=== PATIENT | female | born 1960 | race African-American/Black ===

== ENCOUNTER 2018-03-23 17:21 | Inpatient (IN) ==
[2018-03-23 18:05] LABS: Baso % (Auto) 0.2 % (0.0-2.0); Hematocrit 37.5 % (35.0-46.0); Hemoglobin 11.8 gm/dL (11.6-15.3); Lymph # (Auto) 1.9 th/mm3 (1.0-4.8); Lymph % (Auto) 11.6 % (9.0-44.0); Mean Corpuscular HGB Conc 31.5 % (32.0-36.0); Mean Corpuscular Hemoglobin 26.2 pg (27.0-34.0); Mean Corpuscular Volume 83.2 fL (80.0-100.0); Mean Platelet Volume 8.5 fL (7.0-11.0); Mono % (Auto) 6.3 % (0.0-8.0); Neut # (Auto) 13.1 th/mm3 (1.8-7.7); Neut % (Auto) 81.9 % (16.0-70.0); Platelet Count 590 th/mm3 (150-450); Red Cell Distribution Width 14.3 % (11.6-17.2)
[2018-03-23 18:34] LABS: Albumin 4.1 g/dL (3.4-5.0); Anion Gap 25 meq/L (5-15); Aspartate Aminotransferase 12 U/L (15-37); Blood Urea Nitrogen 32 mg/dL (7-18); Calcium 9.8 mg/dL (8.5-10.1); Carbon Dioxide 13.4 meq/L (21.0-32.0); Chloride 100 meq/L (98-107); Glomerular Filtration Rate 24 mL/min (>89); Potassium 3.3 meq/L (3.5-5.1); Sodium 138 meq/L (136-145)
[2018-03-23 18:49] LABS: Alanine Aminotransferase 16 U/L (10-53); Alkaline Phosphatase 97 U/L (45-117); Glucose,Random 535 mg/dL (74-106); Total Protein 9.1 g/dL (6.4-8.2)
--- NOTE | 2018-03-23 18:52 | ED ---
HPI General Chief Complaint: Psychiatric Symptoms Stated Complaint: psych eval/dbpd Time Seen by Provider: 03/23/18 18:30 Source: patient Mode of arrival: ambulatory Limitations: no limitations History of Present Illness HPI Narrative: 57-year-old female presents to the emergency department under Pak act. According to the Pak act report the patient was disoriented and wandering in a road with oncoming traffic. Patient says she just "went outside to get some fresh air." She denies suicidal or homicidal ideations. Denies history of suicidal attempts. Denies auditory or visual hallucinations. Denies illicit drug use, alcohol use, tobacco use. History of schizophrenia and says she has been taking her medications as prescribed. No known aggravating or relieving factors. Symptoms are moderate to severe in severity. Onset unknown. Duration unknown. Primary care provider is Dr. bnoe. No known allergies. Does not have a psychiatrist. Patient's heart rate and blood pressure is elevated. She is calm. She denies chest pain, shortness of breath, abdominal pain, nausea, vomiting, fevers, change in urine or stool. Denies history of hypertension. Has no other medical complaints. No other modifying factors or associated signs and symptoms. Related Data Home Medications Medication Instructions Recorded Confirmed clozapine [Clozaril] 200 mg PO BID 03/23/18 03/23/18 Allergies Allergy/AdvReac Type Severity Reaction Status Date / Time No Known Allergies Allergy Verified 03/23/18 17:28 Review of Systems ROS Unobtainable All other systems reviewed negative except as stated in HPI [facility] Medical History Medical History Patient denies medical problems (Acute) Surgical History Surgical History No history of previous surgery (Acute) Social History Social History Substance History: No History of Abuse Second Hand Smoke Exposure: Yes Smoking Status: Never smoker How Often Do You Have a Drink Containing Alcohol: Never Recent Travel in [place] within the Last 8 Weeks: No Recent Out of Country Travel within the Last 8 Weeks: No Immunization History Tetanus Immunization: Unable to Assess Hx Influenza Vaccine This Season: Unable to Assess Exam Narrative Exam Narrative: GENERAL: Well-nourished, well-developed black female patient, in no acute distress SKIN: Warm and dry. HEAD: Atraumatic. Normocephalic. EYES: Pupils equal and round. ENT: Mucosa pink and moist. NECK: Supple. Trachea midline. CARDIOVASCULAR: Tavhycardic rate and rhythm. No murmur appreciated. RESPIRATORY: No accessory muscle use. Clear to auscultation. Breath sounds equal bilaterally. GASTROINTESTINAL: Abdomen soft, non-tender, nondistended. Hepatic and splenic margins not palpable. Bowel sounds are active 4 quadrants. MUSCULOSKELETAL: No obvious deformities. No clubbing. No cyanosis. No edema. BACK: No CVA tenderness. NEUROLOGICAL: Awake and alert. Oriented 4. No obvious cranial nerve deficits. Motor grossly within normal limits. Normal speech. Moves all extremities. 5/5 strength to all extremities. PSYCHIATRIC: No delusional thought processes. No hallucinations. Course Consultations Consultation #1: Dr. Pearl will admit the patient to the ICU on an insulin drip. Time: 22:25 Initial Documented Vital Signs Temperature 99.4 F 03/23/18 17:28 Pulse Rate 141 H 03/23/18 17:28 Respiratory Rate 18 03/23/18 17:28 Blood Pressure 196/91 H 03/23/18 17:28 Pulse Oximetry 95 03/23/18 17:28 Last Documented Vital Signs Temperature 98.6 F 03/23/18 18:05 Pulse Rate 106 H 03/23/18 19:25 Respiratory Rate 20 03/23/18 19:25 Blood Pressure 139/62 03/23/18 19:25 Pulse Oximetry 99 03/23/18 19:25 Critical Care Time Critical Care Time: Yes Total Critical Care Time: 45 Attestation: Aggregate critical care time was minutes. Time to perform other separately billable procedures was not included in the critical care time. My time did not include minutes spent treating any other patients simultaneously or on activities that did not directly contribute to the patient's treatment. The services I provided to this patient were to treat and/or prevent clinically significant deterioration due to hyperglycemia with acidosis. I provided critical care services requiring my management, as noted below: Chart data review, documentation time, medication orders and management, vital sign assessments/reviewing monitor data, ordering and reviewing lab tests, ordering and interpreting/reviewing x-rays and diagnostic studies, care of the patient and discussion of the patient with the admitting physicians Medical Decision Making COLTON Attestation COLTON supervised visit: Yes Attestation: I, Dr. Santoro, have reviewed the advance practice practitioner's documentation and am in agreement, met with the patient face to face, made the diagnosis, and the medical decision making was done by me. *My assessment and Findings: This patient presented as a psych eval. She was found to be hyperglycemic and acidotic. IV fluids and IV insulin have been ordered. She is also receiving further laboratory workup. This patient is rapidly improving. Her bicarb is now 17.9 with an anion gap of 17. Sugar is down to 259. Her acetone was not initially done. It was done with her repeat BMP. It is 2.02. This patient is not on an insulin drip. She was given IV fluids and a single dose of IV insulin. I feel that she would be stable for treatment on the floor. I have a consult out for Dr. Pearl to discuss disposition. MDM Narrative Medical decision making narrative: Patient presents under a Pak act. Physical examination and vital signs are essentially unremarkable. Patient has no medical complaints to report. Psych screen has been ordered. If the laboratory results are unremarkable, the patient will be medically cleared for psychiatric evaluation and disposition. Differential Diagnosis Differential Diagnosis: Schizophrenia, medical clearance for psychiatric admission, depression Lab Data Lab results reviewed: Yes I reviewed the patient's lab results. Result diagrams: 03/23/18 17:30 03/23/18 21:24 Lab Results 03/23/18 03/23/18 03/23/18 Range/Units 17:30 17:30 17:30 WBC 16.0 H (4.0-11.0) th/mm3 RBC 4.50 (4.00-5.30) mil/mm3 Hgb 11.8 (11.6-15.3) gm/dL Hct 37.5 (35.0-46.0) % MCV 83.2 (80.0-100.0) fL MCH 26.2 L (27.0-34.0) pg MCHC 31.5 L (32.0-36.0) % RDW 14.3 (11.6-17.2) % Plt Count 590 H (150-450) th/mm3 MPV 8.5 (7.0-11.0) fL Neut % (Auto) 81.9 H (16.0-70.0) % Lymph % (Auto) 11.6 (9.0-44.0) % [place] % (Auto) 6.3 (0.0-8.0) % Eos % (Auto) 0.0 (0.0-4.0) % Baso % (Auto) 0.2 (0.0-2.0) % Neut # (Auto) 13.1 H (1.8-7.7) th/mm3 Lymph # (Auto) 1.9 (1.0-4.8) th/mm3 Mes[place] # (Auto) 1.0 H (0.0-0.9) th/mm3 Eos # (Auto) 0.0 (0.0-0.4) th/mm3 Baso # (Auto) 0.0 (0.0-0.2) th/mm3 WBC Differential . Differential Comment Auto diff final Puncture Site Patient Temperature O2 Saturation (90-100) % ABG pH (7.380-7.420) ABG pCO2 (38-42) mmHg ABG pO2 (61-120) mmHg ABG HCO3 (22-26) mmol/L ABG O2 Content (12.0-20.0) Vol % ABG Base Excess (-2-2) mmol/L ABG Methemoglobin (0-2) % [place] Test Hemoglobin (12.0-16.0) G/DL Carboxyhemoglobin (0-4) % O2 Delivery Device Inspired O2 % Critical Value Sodium 138 (136-145) meq/L Potassium 3.3 L (3.5-5.1) meq/L Chloride 100 (98-107) meq/L Carbon Dioxide 13.4 L (21.0-32.0) meq/L Anion Gap 25 H (5-15) meq/L BUN 32 H (7-18) mg/dL Creatinine 2.49 H (0.50-1.00) mg/dL Estimated GFR 24 L (>89) mL/min POC Glucose (68-110) mg/dl Random Glucose 535 H* (74-106) mg/dL Calcium 9.8 (8.5-10.1) mg/dL Total Bilirubin 0.5 (0.2-1.0) mg/dL AST 12 L (15-37) U/L ALT 16 (10-53) U/L Alkaline Phosphatase 97 (45-117) U/L Total Protein 9.1 H (6.4-8.2) g/dL Albumin 4.1 (3.4-5.0) g/dL Beta-Hydroxybutyric Acd (0.00-0.39) mmol/L TSH 1.830 (0.358-3.740) uIU/mL Urine Color (Yellw/Straw) Urine Clarity (Clear) Urine pH (5.0-8.5) Ur Specific [place] (1.002-1.035) Urine Protein (Neg-Trace) mg/dL Urine Glucose (UA) (Negative) mg/dL Urine Ketones (Negative) mg/dL Urine Occult Blood (Negative) Urine Nitrate (Negative) Urine Bilirubin (Negative) Urine Urobilinogen (Less than 2) mg/dL Ur Leukocyte Esterase (Negative) Urine RBC (0-3) /hpf Urine WBC (0-5) /hpf Ur Squamous Epith Cells (0-5) /hpf Urine Bacteria (None) /hpf Hyaline Casts (0-3) /lpf Urine Mucus (Occasional) /lpf Urine Yeast (None) /hpf Micro UA Comment Urine Culture Comments Salicylates 2.8 (2.8-20.0) mg/dL Urine Opiates Screen (Neg) Acetaminophen Less than 2.0 L (10.0-30.0) mcg/mL Ur Barbiturates Screen (Neg) Ur Amphetamines Screen (Neg) U Benzodiazepines Scrn (Neg) Urine Cocaine Screen (Neg) U Cannabinoids Screen (Neg) Serum Alcohol Less than 3 (0-5) mg/dL 03/23/18 03/23/18 03/23/18 Range/Units 19:30 20:12 20:29 WBC (4.0-11.0) th/mm3 RBC (4.00-5.30) mil/mm3 Hgb (11.6-15.3) gm/dL Hct (35.0-46.0) % MCV (80.0-100.0) fL MCH (27.0-34.0) pg MCHC (32.0-36.0) % RDW (11.6-17.2) % Plt Count (150-450) th/mm3 MPV (7.0-11.0) fL Neut % (Auto) (16.0-70.0) % Lymph % (Auto) (9.0-44.0) % [place] % (Auto) (0.0-8.0) % Eos % (Auto) (0.0-4.0) % Baso % (Auto) (0.0-2.0) % Neut # (Auto) (1.8-7.7) th/mm3 Lymph # (Auto) (1.0-4.8) th/mm3 [place] # (Auto) (0.0-0.9) th/mm3 Eos # (Auto) (0.0-0.4) th/mm3 Baso # (Auto) (0.0-0.2) th/mm3 WBC Differential Differential Comment Puncture Site Left radial Patient Temperature 98.6 O2 Saturation 94 (90-100) % ABG pH 7.38 (7.380-7.420) ABG pCO2 28 L (38-42) mmHg ABG pO2 85 (61-120) mmHg ABG HCO3 16 L* (22-26) mmol/L ABG O2 Content 15.6 (12.0-20.0) Vol % ABG Base Excess -7.9 L (-2-2) mmol/L ABG Methemoglobin 0.8 (0-2) % [place] Test Present Hemoglobin 11.7 L (12.0-16.0) G/DL Carboxyhemoglobin 1.1 (0-4) % O2 Delivery Device Room air Inspired O2 21 % Critical Value Yes Sodium (136-145) meq/L Potassium (3.5-5.1) meq/L Chloride (98-107) meq/L Carbon Dioxide (21.0-32.0) meq/L Anion Gap (5-15) meq/L BUN (7-18) mg/dL Creatinine (0.50-1.00) mg/dL Estimated GFR (>89) mL/min POC Glucose 434 H (68-110) mg/dl Random Glucose (74-106) mg/dL Calcium (8.5-10.1) mg/dL Total Bilirubin (0.2-1.0) mg/dL AST (15-37) U/L ALT (10-53) U/L Alkaline Phosphatase (45-117) U/L Total Protein (6.4-8.2) g/dL Albumin (3.4-5.0) g/dL Beta-Hydroxybutyric Acd (0.00-0.39) mmol/L TSH (0.358-3.740) uIU/mL Urine Color Tabitha (Yellw/Straw) Urine Clarity Turbid H (Clear) Urine pH 5.0 (5.0-8.5) Ur Specific [place] 1.024 (1.002-1.035) Urine Protein 100 H (Neg-Trace) mg/dL Urine Glucose (UA) 500 or greater (Negative) mg/dL Urine Ketones 20 (Negative) mg/dL Urine Occult Blood Small H (Negative) Urine Nitrate Negative (Negative) Urine Bilirubin Negative (Negative) Urine Urobilinogen 2.0 H (Less than 2) mg/dL Ur Leukocyte Esterase Small H (Negative) Urine RBC 31 H (0-3) /hpf Urine WBC 23 H (0-5) /hpf Ur Squamous Epith Cells 208 (0-5) /hpf Urine Bacteria Many H (None) /hpf Hyaline Casts 37 (0-3) /lpf Urine Mucus Many H (Occasional) /lpf Urine Yeast Occasional H (None) /hpf Micro UA Comment Culture indicated Urine Culture Comments Culture indicated Salicylates (2.8-20.0) mg/dL Urine Opiates Screen (Neg) Acetaminophen (10.0-30.0) mcg/mL Ur Barbiturates Screen (Neg) Ur Amphetamines Screen (Neg) U Benzodiazepines Scrn (Neg) Urine Cocaine Screen (Neg) U Cannabinoids Screen (Neg) Serum Alcohol (0-5) mg/dL 03/23/18 03/23/18 03/23/18 Range/Units 20:29 21:24 21:24 WBC (4.0-11.0) th/mm3 RBC (4.00-5.30) mil/mm3 Hgb (11.6-15.3) gm/dL Hct (35.0-46.0) % MCV (80.0-100.0) fL MCH (27.0-34.0) pg MCHC (32.0-36.0) % RDW (11.6-17.2) % Plt Count (150-450) th/mm3 MPV (7.0-11.0) fL Neut % (Auto) (16.0-70.0) % Lymph % (Auto) (9.0-44.0) % [place] % (Auto) (0.0-8.0) % Eos % (Auto) (0.0-4.0) % Baso % (Auto) (0.0-2.0) % Neut # (Auto) (1.8-7.7) th/mm3 Lymph # (Auto) (1.0-4.8) th/mm3 [place] # (Auto) (0.0-0.9) th/mm3 Eos # (Auto) (0.0-0.4) th/mm3 Baso # (Auto) (0.0-0.2) th/mm3 WBC Differential Differential Comment Puncture Site Patient Temperature O2 Saturation (90-100) % ABG pH (7.380-7.420) ABG pCO2 (38-42) mmHg ABG pO2 (61-120) mmHg ABG HCO3 (22-26) mmol/L ABG O2 Content (12.0-20.0) Vol % ABG Base Excess (-2-2) mmol/L ABG Methemoglobin (0-2) % [place] Test Hemoglobin (12.0-16.0) G/DL Carboxyhemoglobin (0-4) % O2 Delivery Device Inspired O2 % Critical Value Sodium 141 (136-145) meq/L Potassium 3.2 L (3.5-5.1) meq/L Chloride 106 (98-107) meq/L Carbon Dioxide 17.9 L (21.0-32.0) meq/L Anion Gap 17 H (5-15) meq/L BUN 29 H (7-18) mg/dL Creatinine 1.77 H (0.50-1.00) mg/dL Estimated GFR 36 L (>89) mL/min POC Glucose (68-110) mg/dl Random Glucose 259 H D (74-106) mg/dL Calcium 8.4 L D (8.5-10.1) mg/dL Total Bilirubin (0.2-1.0) mg/dL AST (15-37) U/L ALT (10-53) U/L Alkaline Phosphatase (45-117) U/L Total Protein (6.4-8.2) g/dL Albumin (3.4-5.0) g/dL Beta-Hydroxybutyric Acd 2.02 H (0.00-0.39) mmol/L TSH (0.358-3.740) uIU/mL Urine Color (Yellw/Straw) Urine Clarity (Clear) Urine pH (5.0-8.5) Ur Specific [place] (1.002-1.035) Urine Protein (Neg-Trace) mg/dL Urine Glucose (UA) (Negative) mg/dL Urine Ketones (Negative) mg/dL Urine Occult Blood (Negative) Urine Nitrate (Negative) Urine Bilirubin (Negative) Urine Urobilinogen (Less than 2) mg/dL Ur Leukocyte Esterase (Negative) Urine RBC (0-3) /hpf Urine WBC (0-5) /hpf Ur Squamous Epith Cells (0-5) /hpf Urine Bacteria (None) /hpf Hyaline Casts (0-3) /lpf Urine Mucus (Occasional) /lpf Urine Yeast (None) /hpf Micro UA Comment Urine Culture Comments Salicylates (2.8-20.0) mg/dL Urine Opiates Screen Neg (Neg) Acetaminophen (10.0-30.0) mcg/mL Ur Barbiturates Screen Neg (Neg) Ur Amphetamines Screen Neg (Neg) U Benzodiazepines Scrn Neg (Neg) Urine Cocaine Screen Neg (Neg) U Cannabinoids Screen Neg (Neg) Serum Alcohol (0-5) mg/dL 03/23/18 Range/Units 21:59 WBC (4.0-11.0) th/mm3 RBC (4.00-5.30) mil/mm3 Hgb (11.6-15.3) gm/dL Hct (35.0-46.0) % MCV (80.0-100.0) fL MCH (27.0-34.0) pg MCHC (32.0-36.0) % RDW (11.6-17.2) % Plt Count (150-450) th/mm3 MPV (7.0-11.0) fL Neut % (Auto) (16.0-70.0) % Lymph % (Auto) (9.0-44.0) % [place] % (Auto) (0.0-8.0) % Eos % (Auto) (0.0-4.0) % Baso % (Auto) (0.0-2.0) % Neut # (Auto) (1.8-7.7) th/mm3 Lymph # (Auto) (1.0-4.8) th/mm3 [place] # (Auto) (0.0-0.9) th/mm3 Eos # (Auto) (0.0-0.4) th/mm3 Baso # (Auto) (0.0-0.2) th/mm3 WBC Differential Differential Comment Puncture Site Patient Temperature O2 Saturation (90-100) % ABG pH (7.380-7.420) ABG pCO2 (38-42) mmHg ABG pO2 (61-120) mmHg ABG HCO3 (22-26) mmol/L ABG O2 Content (12.0-20.0) Vol % ABG Base Excess (-2-2) mmol/L ABG Methemoglobin (0-2) % [place] Test Hemoglobin (12.0-16.0) G/DL Carboxyhemoglobin (0-4) % O2 Delivery Device Inspired O2 % Critical Value Sodium (136-145) meq/L Potassium (3.5-5.1) meq/L Chloride (98-107) meq/L Carbon Dioxide (21.0-32.0) meq/L Anion Gap (5-15) meq/L BUN (7-18) mg/dL Creatinine (0.50-1.00) mg/dL Estimated GFR (>89) mL/min POC Glucose 248 H (68-110) mg/dl Random Glucose (74-106) mg/dL Calcium (8.5-10.1) mg/dL Total Bilirubin (0.2-1.0) mg/dL AST (15-37) U/L ALT (10-53) U/L Alkaline Phosphatase (45-117) U/L Total Protein (6.4-8.2) g/dL Albumin (3.4-5.0) g/dL Beta-Hydroxybutyric Acd (0.00-0.39) mmol/L TSH (0.358-3.740) uIU/mL Urine Color (Yellw/Straw) Urine Clarity (Clear) Urine pH (5.0-8.5) Ur Specific [place] (1.002-1.035) Urine Protein (Neg-Trace) mg/dL Urine Glucose (UA) (Negative) mg/dL Urine Ketones (Negative) mg/dL Urine Occult Blood (Negative) Urine Nitrate (Negative) Urine Bilirubin (Negative) Urine Urobilinogen (Less than 2) mg/dL Ur Leukocyte Esterase (Negative) Urine RBC (0-3) /hpf Urine WBC (0-5) /hpf Ur Squamous Epith Cells (0-5) /hpf Urine Bacteria (None) /hpf Hyaline Casts (0-3) /lpf Urine Mucus (Occasional) /lpf Urine Yeast (None) /hpf Micro UA Comment Urine Culture Comments Salicylates (2.8-20.0) mg/dL Urine Opiates Screen (Neg) Acetaminophen (10.0-30.0) mcg/mL Ur Barbiturates Screen (Neg) Ur Amphetamines Screen (Neg) U Benzodiazepines Scrn (Neg) Urine Cocaine Screen (Neg) U Cannabinoids Screen (Neg) Serum Alcohol (0-5) mg/dL ECG Data EKG Prior to Arrival: No Attestation: I personally reviewed and interpreted this ECG as follows: Discharge Plan Discharge Disposition Patient Disposition: 30 Still Patient Discharge Details Diagnosis: DKA (diabetic ketoacidoses) Physicians Team ED Provider: Nataliia Santoro ED Midlevel Provider: Sinai Botello Primary Care Provider: Ran Eddy Attending Provider: Farrah Pearl Discharge Interventions Interventions: Vital Signs Last Done: 03/23/18 19:25 Status ED Status: Admitted Patient
[2018-03-23] MEDS ORDERED: Sod Chloride 0.9% Inj 1,000 ML IV.SIG ONE ×2 (19:23→19:24)
[2018-03-23] MEDS ORDERED: Insulin Regular (For Infusion) 100 UNIT in Sodium Chlor 0.9% Inj 99 ML IV.CONT PRN (19:26)
[2018-03-23 19:41] LABS: ABG Base Excess -7.9 mmol/L (-2-2); ABG PCO2 28 mmHg (38-42); ABG PO2 85 mmHg (61-120)
[2018-03-23 21:03] LABS: Amphetamine Screen,Urine Neg (Neg); Barbiturate Screen,Urine Neg (Neg); Cannabinoid Screen,Urine Neg (Neg); Cocaine Screen,Urine Neg (Neg)
[2018-03-23 21:14] LABS: Bacteria,Urine Many /hpf; Bilirubin,Urine Negative (Negative); Clarity,Urine Turbid (Clear); Color,Urine Amber (Yellw/Straw); Glucose,Urine (UA) 500 or Greater mg/dL (Negative); Hyaline Casts,Urine 37 /lpf (0-3); Leukocyte Esterase,Urine Small (Negative); Mucus,Urine Many /lpf (Occasional); Nitrite,Urine Negative (Negative); Specific Gravity,Urine 1.024 (1.002-1.035); Squamous Epithelial Cell,Urine 208 /hpf (0-5)
[2018-03-23 21:18] LABS: Opiate Screen,Urine Neg (Neg)
[2018-03-23 21:57] LABS: Calcium 8.4 mg/dL (8.5-10.1); Carbon Dioxide 17.9 meq/L (21.0-32.0); Potassium 3.2 meq/L (3.5-5.1)
[2018-03-23] MEDS ORDERED: Sodium Chlor 0.9% Inj 500 ML IV.SIG ONE (22:04)
[2018-03-23] MEDS ORDERED: Dextrose 50% in Water 50 ML Vial IV.PUSH PRN (22:43)
[2018-03-23] MEDS ORDERED: Temazepam 15 MG Capsule PO PRN (22:45)
[2018-03-23] MEDS ORDERED: Bisacodyl 10 MG Supp RECTAL PRN (22:45)
--- NOTE | 2018-03-23 22:51 | P.HPIM ---
History of Present Illness Primary Care Physician: Ran Eddy MD, R2 History of Present Illness: This is a 57-year-old female with a PMH of DM who is brought to the ER by Police under Pak Act after being found wandering in the street w/ oncoming traffic. Pt noted to be confused/disoriented, very poor historian. Denies any complaints at this time. On arrival, BP 196/91, HR 141, O2 sat 95% on RA, Temp 99.4. S/p IVF in ER w/ repeat BP 160/72, HR 86. WBC 16. Creatinine 2.49, previously 0.85 on 07/18/06. K+ 3.3. CO2 13.4. AG 25. BS 535. S/p 40mEqu K + x4 w/ repeat K+ 3.2. Creatinine 1.77. BS 233. ABG w/ pH 7.38. U/a positive for UTI. UDS negative, Alcohol negative. S/p Insulin 11u in ER and IVF. - Diagnosis (1) DM (diabetes mellitus) (2) Suicidal ideation (3) UTI (urinary tract infection) (4) Hypokalemia (5) MAHOGANY (acute kidney injury) Inpatient Certification: I certify that the inpatient services were ordered in accordance with Medicare regulations governing the order. This includes certification that hospital inpatient services are reasonable and necessary and in the case of services not specified as inpatient-only under 42 CFR 419.22(n), that they are appropriately provided as inpatient services in accordance to with the 2-midnight benchmark under 43 CFR 412.3(e) Estimated Total Length of Stay (Days): 2 Plans for Post Hospital Care: Not yet determined Review of Systems All other systems reviewed negative except as stated in HPI [facility] - History History Provided By: Patient - Medical History Medical History: Medical History (Last Reviewed 03/23/18 @ 18:51 by MARTIN Ortega) Patient denies medical problems - Surgical History Surgical History: Surgical History (Last Updated 03/23/18 @ 17:30 by Maddy Cantu) No history of previous surgery - Tobacco History Second Hand Smoke Exposure: Yes Tobacco Use In Past 30 Days: No Smoking Status: Never smoker - Alcohol History How Often Do You Have a Drink Containing Alcohol: Never - Substance Use History Substance History: No History of Abuse - Travel History Recent Travel in the [place] Within the Last 8 Weeks: No Recent Travel Out of the Country Within the Last 8 Weeks: No - Immunization History Tetanus Immunization: Unable to Assess Hx Influenza Vaccine This Season: Unable to Assess Medications and Allergies Active Medications: Active Medications Al Hydroxide/Mg Hydroxide (Milk Of Magnesia Liq) 30 ml PO Q12H PRN PRN Reason: Mild Constipation Bisacodyl (Dulcolax Supp) 10 mg RECTAL DAILY PRN PRN Reason: SEVERE CONSITIPATION Dextrose (D50w Vial) 50 ml IV.PUSH UNSCH PRN PRN Reason: PER HYPOGLYCEMIA PROTOCOL Glucagon (Glucagon Inj) 1 mg OTHER PRN PRN PRN Reason: for Hypoglycemia Protocol Sodium Chloride (Ns Inj) 1,000 mls @ 150 mls/hr IV.CONT .Q6H40M MARIA L Insulin Aspart (Novolog Insulin Correctional Sugar Inj) 0 unit SQ ACHS MARIA L; Protocol Insulin Detemir (Levemir Inj) 10 unit SQ HS MARIA L Lactulose (Lactulose Liq) 30 ml PO DAILY PRN PRN Reason: SEVERE CONSITIPATION Ondansetron HCl (Zofran Inj) 4 mg IV.PUSH Q6H PRN PRN Reason: NAUSEA OR VOMITING Senna/Docusate Sodium (Yael-Colace) 1 tab PO BID MARIA L Sennosides (Senokot) 17.2 mg PO Q12H PRN PRN Reason: Moderate Constipation Temazepam (Restoril) 15 mg PO HS PRN PRN Reason: INSOMNIA Allergies Allergy/AdvReac Type Severity Reaction Status Date / Time No Known Allergies Allergy Verified 03/23/18 17:28 Home Medications Medication Instructions Recorded Confirmed Type clozapine [Clozaril] 200 mg PO BID 03/23/18 03/23/18 History Exam Vital signs: Vital Signs 03/23/18 17:28 03/23/18 18:05 03/23/18 19:25 Temperature 99.4 F 98.6 F Pulse Rate 141 H 122 H 106 H Respiratory Rate 18 18 20 Blood Pressure 196/91 H 183/87 H 139/62 Pulse Oximetry 95 98 99 Intake & Output 03/23/18 03/23/18 03/24/18 06:59 18:59 06:59 Intake Total 2099 Balance 2099 Weight 113.398 kg Intake: IV 2099 NS Inj 1,000 ML @ Wide Open IV. 1999 SIG BOLUS ONE Rx#:[id number] Rocephin Inj 1,000 MG In NS Inj 100 / 100 100 ML @ 200 mls/hr IV.SIG ONCE ONE Rx#:[id number] Narrative: PE: GENERAL: Middle-aged black female in no acute distress. Calm HEENT: PERRLA, EOMI. No scleral icterus or conjunctival pallor. No lid lag or facial droop. CARDIOVASCULAR: Regular rate and rhythm. No obvious murmurs to auscultation. No chest tenderness to palpation. RESPIRATORY: No obvious rhonchi or wheezing. Clear to auscultation. Breath sounds equal bilaterally. GASTROINTESTINAL: Abdomen soft, non-tender, nondistended. BS normal. MUSCULOSKELETAL: Extremities without clubbing, cyanosis, or edema. No obvious deformities. NEUROLOGICAL: Awake, alert. Flat affect. No focal neurologic deficits. Moving both upper and lower extremities spontaneously. Results - Labs CBC & Chem 7: 03/23/18 17:30 03/23/18 21:24 Labs: Short CBC 03/23/18 Range/Units 17:30 WBC 16.0 H (4.0-11.0) th/mm3 Hgb 11.8 (11.6-15.3) gm/dL Hct 37.5 (35.0-46.0) % Plt Count 590 H (150-450) th/mm3 BMP 03/23/18 03/23/18 17:30 21:24 Sodium 138 141 Potassium 3.3 L 3.2 L Chloride 100 106 Carbon Dioxide 13.4 L 17.9 L BUN 32 H 29 H Creatinine 2.49 H 1.77 H Calcium 9.8 8.4 L D Liver Function 03/23/18 Range/Units 17:30 Total Bilirubin 0.5 (0.2-1.0) mg/dL AST 12 L (15-37) U/L ALT 16 (10-53) U/L Alkaline Phosphatase 97 (45-117) U/L Albumin 4.1 (3.4-5.0) g/dL Urine 03/23/18 Range/Units 20:29 Urine Color Tabitha (Yellw/Straw) Urine Clarity Turbid H (Clear) Urine pH 5.0 (5.0-8.5) Ur Specific [place] 1.024 (1.002-1.035) Urine Protein 100 H (Neg-Trace) mg/dL Urine Glucose (UA) 500 or greater (Negative) mg/dL Caprini VTE Risk Assessment Caprini VTE Risk Assessment: No/Low Risk (score <= 1) Caprini Risk Assessment Model: Point Value = 1 Point Value = 2 Point Value = 3 Point Value = 5 Age 41-60 Minor surgery BMI > 25 kg/m2 Swollen legs Varicose veins or History of unexplained or recurrent spontaneous Oral contraceptives or hormone replacement Sepsis (< 1 month) Serious lung disease, including pneumonia (< 1 month) Abnormal pulmonary function Acute myocardial infarction Congestive heart failure (< 1 month) History of inflammatory bowel disease Medical patient at bed rest Age 61-74 Arthroscopic surgery Major open surgery (> 45 min) Laparoscopic surgery (> 45 min) Malignancy Confined to bed (> 72 hours) Immobilizing plaster cast Central venous access Age >= 75 History of VTE Family history of VTE Factor V Leiden Prothrombin [id number] Lupus anticoagulant Anticardiolipin antibodies Elevated serum homocysteine Heparin-induced thrombocytopenia Other congenital or acquired thrombophilia Stroke (< 1 month) Elective arthroplasty Hip, pelvis, or leg fracture Acute spinal cord injury (< 1 month) Prophylaxis Regimen: Total Risk Factor Score Risk Level Prophylaxis Regimen 0-1 Low Early ambulation 2 Moderate Order ONE of the following: *Sequential Compression Device (SCD) *Heparin 5000 units SQ BID 3-4 Higher Order ONE of the following medications: *Heparin 5000 units SQ TID *Enoxaparin/Lovenox 40 mg SQ daily (WT < 150 kg, CrCl > 30 mL/min) *Enoxaparin/Lovenox 30 mg SQ daily (WT < 150 kg, CrCl > 10-29 mL/min) *Enoxaparin/Lovenox 30 mg SQ BID (WT < 150 kg, CrCl > 30 mL/min) AND/OR *Sequential Compression Device (SCD) 5 or more Highest Order ONE of the following medications: *Heparin 5000 units SQ TID (Preferred with Epidurals) *Enoxaparin/Lovenox 40 mg SQ daily (WT < 150 kg, CrCl > 30 mL/min) *Enoxaparin/Lovenox 30 mg SQ daily (WT < 150 kg, CrCl > 10-29 mL/min) *Enoxaparin/Lovenox 30 mg SQ BID (WT < 150 kg, CrCl > 30 mL/min) AND *Sequential Compression Device (SCD) Assessment and Plan - Assessment (1) DM (diabetes mellitus) Code(s): E11.9 - Type 2 diabetes mellitus without complications Status: Acute (2) Suicidal ideation Code(s): R45.851 - Suicidal ideations Status: Acute (3) UTI (urinary tract infection) Code(s): N39.0 - Urinary tract infection, site not specified Status: Acute (4) Hypokalemia Code(s): E87.6 - Hypokalemia Status: Acute (5) MAHOGANY (acute kidney injury) Code(s): N17.9 - Acute kidney failure, unspecified Status: Acute - Plan A/P: 1. DM: Uncontrolled. CO2 13, BS 535, however pH normal, s/p IVF w/ improvement, hold off on Insulin gtt for now as CO2 improving and pH normal, will recheck repeat BMP for need to initiate Insulin gtt, for now will continue w/ aggressive IVF and start sliding scale/Accu-Cheks, Levemir 10u hs. 2. Hypokalemia: K+ 3.3, s/p 40mEqu x4 doses replacement in ER w/ repeat K+ 3.2 , will recheck labs again for need to give additional replacement. Telemetry. 3. MAHOGANY: Creatinine 2.49, previously 0.85 on 07/18/06, IVF for hydration, repeat labs in am, monitor I/O. 4. UTI: U/a w/ UTI, s/p Rocephin IV in ER, will continue w/ IV Abx, follow up cultures, monitor I/O. 5. Suicidal Ideation: currently under Pak Act after found wandering the street in oncoming traffic, Consult Psych, Sitter. 6. DVT Prophylaxis: SCD/Teds 7. Case discussed w/ ER physician at length, labs/records/imaging reviewed by me.
[2018-03-23] MEDS: Insulin Detemir Inj 1,000 UNIT/10 ML Vial SQ SCH (23:56)
[2018-03-23] MEDS: Sod Chloride 0.9% Inj 1,000 ML IV.CONT SCH (23:56)
[2018-03-24 01:23] LABS: Carbon Dioxide 21.1 meq/L (21.0-32.0); Magnesium 2.1 mg/dL (1.5-2.5); Potassium 3.9 meq/L (3.5-5.1)
[2018-03-24] MEDS: Sod Chloride 0.9% Inj 1,000 ML IV.CONT SCH ×3 (05:15→20:21)
[2018-03-24] MEDS: Insulin NovoLOG Aspart Correctional Sugar Inj SQ SCH ×4 (09:33→20:20)
--- NOTE | 2018-03-24 10:35 | ECG ---
Date Performed: 03/23/2018 Time Performed: 19:19:22 PTAGE: 57 years EKG: SINUS TACHYCARDIA ABNORMAL RHYTHM ECG PREVIOUS TRACING : 02/25/2000 23.41 Since the previous tracing, no significant change noted DOCTOR: Dolores Murrieta Interpretating Date/Time 03/24/2018 10:34:44
--- NOTE | 2018-03-24 12:21 | P.PNIM ---
Subjective Interval history: Patient is very guarded and refused to talk. BJ RN. She selectively talk with them. Physical Exam Vital signs: Vital Signs 03/23/18 17:28 03/23/18 18:05 03/23/18 19:25 Temperature 99.4 F 98.6 F Pulse Rate 141 H 122 H 106 H Respiratory Rate 18 18 20 Blood Pressure 196/91 H 183/87 H 139/62 Pulse Oximetry 95 98 99 03/23/18 23:55 03/24/18 00:47 03/24/18 05:13 Temperature Pulse Rate 87 86 83 Respiratory Rate 18 18 18 Blood Pressure 191/81 H 160/72 H 161/80 H Pulse Oximetry 99 98 98 03/24/18 07:46 03/24/18 11:14 Temperature 97.8 F Pulse Rate 94 H 80 Respiratory Rate 16 16 Blood Pressure 169/87 H 188/78 H Pulse Oximetry 99 97 Intake & Output 03/23/18 03/24/18 03/24/18 18:59 06:59 18:59 Intake Total 2835 / 2835 Balance 2835 / 2835 Weight 113.398 kg Intake: IV 2835 / 2835 NS Inj 1,000 ML @ 150 mls/hr IV 735 / 735 .CONT .Q6H40M MARIA L Rx#:[id number] NS Inj 1,000 ML @ Wide Open IV. 1999 SIG BOLUS ONE Rx#:[id number] Rocephin Inj 1,000 MG In NS Inj 100 / 100 100 ML @ 200 mls/hr IV.SIG ONCE ONE Rx#:[id number] Narrative: GENERAL: Patient is guarded. Refused to participate. CARDIOVASCULAR: Regular rate and rhythm without murmurs, gallops, or rubs. RESPIRATORY: Breath sounds equal bilaterally. No accessory muscle use. GASTROINTESTINAL: Abdomen soft, non-tender, nondistended. MUSCULOSKELETAL: No cyanosis, or edema. Psych: Withdrawn. Guarded Results - Labs CBC & Chem 7: 03/24/18 13:44 03/24/18 13:44 Laboratory Results - last 24 hr 03/23/18 03/23/18 03/23/18 17:30 17:30 17:30 WBC 16.0 H RBC 4.50 Hgb 11.8 Hct 37.5 MCV 83.2 MCH 26.2 L MCHC 31.5 L RDW 14.3 Plt Count 590 H MPV 8.5 Neut % (Auto) 81.9 H Lymph % (Auto) 11.6 [place] % (Auto) 6.3 Eos % (Auto) 0.0 Baso % (Auto) 0.2 Neut # (Auto) 13.1 H Lymph # (Auto) 1.9 [place] # (Auto) 1.0 H Eos # (Auto) 0.0 Baso # (Auto) 0.0 WBC Differential . Differential Comment Auto diff final Puncture Site Patient Temperature O2 Saturation ABG pH ABG pCO2 ABG pO2 ABG HCO3 ABG O2 Content ABG Base Excess ABG Methemoglobin Italo Test Hemoglobin Carboxyhemoglobin O2 Delivery Device Inspired O2 Critical Value Sodium 138 Potassium 3.3 L Chloride 100 Carbon Dioxide 13.4 L Anion Gap 25 H BUN 32 H Creatinine 2.49 H Estimated GFR 24 L POC Glucose Random Glucose 535 H* Calcium 9.8 Magnesium Total Bilirubin 0.5 AST 12 L ALT 16 Alkaline Phosphatase 97 Total Protein 9.1 H Albumin 4.1 Beta-Hydroxybutyric Acd TSH 1.830 Urine Color Urine Clarity Urine pH Ur Specific [place] Urine Protein Urine Glucose (UA) Urine Ketones Urine Occult Blood Urine Nitrate Urine Bilirubin Urine Urobilinogen Ur Leukocyte Esterase Urine RBC Urine WBC Ur Squamous Epith Cells Urine Bacteria Hyaline Casts Urine Mucus Urine Yeast Micro UA Comment Urine Culture Comments Salicylates 2.8 Urine Opiates Screen Acetaminophen Less than 2.0 L Ur Barbiturates Screen Ur Amphetamines Screen U Benzodiazepines Scrn Urine Cocaine Screen U Cannabinoids Screen Serum Alcohol Less than 3 03/23/18 03/23/18 03/23/18 19:30 20:12 20:29 WBC RBC Hgb Hct MCV MCH MCHC RDW Plt Count MPV Neut % (Auto) Lymph % (Auto) [place] % (Auto) Eos % (Auto) Baso % (Auto) Neut # (Auto) Lymph # (Auto) [place] # (Auto) Eos # (Auto) Baso # (Auto) WBC Differential Differential Comment Puncture Site Left radial Patient Temperature 98.6 O2 Saturation 94 ABG pH 7.38 ABG pCO2 28 L ABG pO2 85 ABG HCO3 16 L* ABG O2 Content 15.6 ABG Base Excess -7.9 L ABG Methemoglobin 0.8 [place]alo Test Present Hemoglobin 11.7 L Carboxyhemoglobin 1.1 O2 Delivery Device Room air Inspired O2 21 Critical Value Yes Sodium Potassium Chloride Carbon Dioxide Anion Gap BUN Creatinine Estimated GFR POC Glucose 434 H Random Glucose Calcium Magnesium Total Bilirubin AST ALT Alkaline Phosphatase Total Protein Albumin Beta-Hydroxybutyric Acd TSH Urine Color Tabitha Urine Clarity Turbid H Urine pH 5.0 Ur Specific [place] 1.024 Urine Protein 100 H Urine Glucose (UA) 500 or greater Urine Ketones 20 Urine Occult Blood Small H Urine Nitrate Negative Urine Bilirubin Negative Urine Urobilinogen 2.0 H Ur Leukocyte Esterase Small H Urine RBC 31 H Urine WBC 23 H Ur Squamous Epith Cells 208 Urine Bacteria Many H Hyaline Casts 37 Urine Mucus Many H Urine Yeast Occasional H Micro UA Comment Culture indicated Urine Culture Comments Culture indicated Salicylates Urine Opiates Screen Acetaminophen Ur Barbiturates Screen Ur Amphetamines Screen U Benzodiazepines Scrn Urine Cocaine Screen U Cannabinoids Screen Serum Alcohol 03/23/18 03/23/18 03/23/18 20:29 21:24 21:24 WBC RBC Hgb Hct MCV MCH MCHC RDW Plt Count MPV Neut % (Auto) Lymph % (Auto) [place] % (Auto) Eos % (Auto) Baso % (Auto) Neut # (Auto) Lymph # (Auto) [place] # (Auto) Eos # (Auto) Baso # (Auto) WBC Differential Differential Comment Puncture Site Patient Temperature O2 Saturation ABG pH ABG pCO2 ABG pO2 ABG HCO3 ABG O2 Content ABG Base Excess ABG Methemoglobin Italo Test Hemoglobin Carboxyhemoglobin O2 Delivery Device Inspired O2 Critical Value Sodium 141 Potassium 3.2 L Chloride 106 Carbon Dioxide 17.9 L Anion Gap 17 H BUN 29 H Creatinine 1.77 H Estimated GFR 36 L POC Glucose Random Glucose 259 H D Calcium 8.4 L D Magnesium Total Bilirubin AST ALT Alkaline Phosphatase Total Protein Albumin Beta-Hydroxybutyric Acd 2.02 H TSH Urine Color Urine Clarity Urine pH Ur Specific [place] Urine Protein Urine Glucose (UA) Urine Ketones Urine Occult Blood Urine Nitrate Urine Bilirubin Urine Urobilinogen Ur Leukocyte Esterase Urine RBC Urine WBC Ur Squamous Epith Cells Urine Bacteria Hyaline Casts Urine Mucus Urine Yeast Micro UA Comment Urine Culture Comments Salicylates Urine Opiates Screen Neg Acetaminophen Ur Barbiturates Screen Neg Ur Amphetamines Screen Neg U Benzodiazepines Scrn Neg Urine Cocaine Screen Neg U Cannabinoids Screen Neg Serum Alcohol 03/23/18 03/23/18 03/24/18 21:59 23:46 00:42 WBC RBC Hgb Hct MCV MCH MCHC RDW Plt Count MPV Neut % (Auto) Lymph % (Auto) [place] % (Auto) Eos % (Auto) Baso % (Auto) Neut # (Auto) Lymph # (Auto) [place] # (Auto) Eos # (Auto) Baso # (Auto) WBC Differential Differential Comment Puncture Site Patient Temperature O2 Saturation ABG pH ABG pCO2 ABG pO2 ABG HCO3 ABG O2 Content ABG Base Excess ABG Methemoglobin Italo Test Hemoglobin Carboxyhemoglobin O2 Delivery Device Inspired O2 Critical Value Sodium 141 Potassium 3.9 Chloride 108 H Carbon Dioxide 21.1 Anion Gap 12 BUN 27 H Creatinine 1.61 H Estimated GFR 40 L POC Glucose 248 H 233 H Random Glucose 241 H Calcium 8.0 L Magnesium 2.1 Total Bilirubin AST ALT Alkaline Phosphatase Total Protein Albumin Beta-Hydroxybutyric Acd TSH Urine Color Urine Clarity Urine pH Ur Specific [place] Urine Protein Urine Glucose (UA) Urine Ketones Urine Occult Blood Urine Nitrate Urine Bilirubin Urine Urobilinogen Ur Leukocyte Esterase Urine RBC Urine WBC Ur Squamous Epith Cells Urine Bacteria Hyaline Casts Urine Mucus Urine Yeast Micro UA Comment Urine Culture Comments Salicylates Urine Opiates Screen Acetaminophen Ur Barbiturates Screen Ur Amphetamines Screen U Benzodiazepines Scrn Urine Cocaine Screen U Cannabinoids Screen Serum Alcohol 03/24/18 03/24/18 03/24/18 05:02 08:34 11:53 WBC RBC Hgb Hct MCV MCH MCHC RDW Plt Count MPV Neut % (Auto) Lymph % (Auto) [place] % (Auto) Eos % (Auto) Baso % (Auto) Neut # (Auto) Lymph # (Auto) [place] # (Auto) Eos # (Auto) Baso # (Auto) WBC Differential Differential Comment Puncture Site Patient Temperature O2 Saturation ABG pH ABG pCO2 ABG pO2 ABG HCO3 ABG O2 Content ABG Base Excess ABG Methemoglobin [place] Test Hemoglobin Carboxyhemoglobin O2 Delivery Device Inspired O2 Critical Value Sodium Potassium Chloride Carbon Dioxide Anion Gap BUN Creatinine Estimated GFR POC Glucose 256 H 267 H 219 H Random Glucose Calcium Magnesium Total Bilirubin AST ALT Alkaline Phosphatase Total Protein Albumin Beta-Hydroxybutyric Acd TSH Urine Color Urine Clarity Urine pH Ur Specific [place] Urine Protein Urine Glucose (UA) Urine Ketones Urine Occult Blood Urine Nitrate Urine Bilirubin Urine Urobilinogen Ur Leukocyte Esterase Urine RBC Urine WBC Ur Squamous Epith Cells Urine Bacteria Hyaline Casts Urine Mucus Urine Yeast Micro UA Comment Urine Culture Comments Salicylates Urine Opiates Screen Acetaminophen Ur Barbiturates Screen Ur Amphetamines Screen U Benzodiazepines Scrn Urine Cocaine Screen U Cannabinoids Screen Serum Alcohol Assessment and Plan - Assessment (1) DM (diabetes mellitus) Code(s): E11.9 - Type 2 diabetes mellitus without complications Status: Acute (2) Suicidal ideation Code(s): R45.851 - Suicidal ideations Status: Acute (3) UTI (urinary tract infection) Code(s): N39.0 - Urinary tract infection, site not specified Status: Acute (4) Hypokalemia Code(s): E87.6 - Hypokalemia Status: Acute (5) MAHOGANY (acute kidney injury) Code(s): N17.9 - Acute kidney failure, unspecified Status: Acute (6) Hypertension Code(s): I10 - Essential (primary) hypertension Status: Acute - Plan DM: Uncontrolled. Suspect noncompliance Hemoglobin A1C is 14. - Levemir 10 unit HS. SSI with accucheck MAHOGANY: - Improving. Continue IV hydration. Monitor I/O. UTI: U/a w/ UTI, s/p Rocephin IV in ER, will continue w/ IV Abx, follow up cultures, monitor I/O. Suicidal Ideation: currently under [place] Act after found wandering the street in oncoming traffic, psych consulted. DW Dr. Arreaga. Need better cooperation for proper assessment. HTN: uncontrolled. - Start Lisinopril DVT Prophylaxis: SCD/Teds
[2018-03-24 14:24] LABS: Baso % (Auto) 0.3 % (0.0-2.0); Eos % (Auto) 0.2 % (0.0-4.0); Hematocrit 31.7 % (35.0-46.0); Hemoglobin 10.1 gm/dL (11.6-15.3); Lymph # (Auto) 2.9 th/mm3 (1.0-4.8); Lymph % (Auto) 23.7 % (9.0-44.0); Mean Corpuscular Hemoglobin 26.6 pg (27.0-34.0); Mean Platelet Volume 7.8 fL (7.0-11.0); Mono # (Auto) 0.8 th/mm3 (0.0-0.9); Mono % (Auto) 6.8 % (0.0-8.0); Neut # (Auto) 8.4 th/mm3 (1.8-7.7); Platelet Count 450 th/mm3 (150-450); Red Blood Count 3.81 mil/mm3 (4.00-5.30); Red Cell Distribution Width 14.3 % (11.6-17.2); White Blood Count 12.2 th/mm3 (4.0-11.0)
[2018-03-24 14:43] LABS: Alanine Aminotransferase 15 U/L (10-53); Albumin 3.1 g/dL (3.4-5.0); Alkaline Phosphatase 76 U/L (45-117); Anion Gap 8 meq/L (5-15); Aspartate Aminotransferase 13 U/L (15-37); Blood Urea Nitrogen 24 mg/dL (7-18); Calcium 8.2 mg/dL (8.5-10.1); Carbon Dioxide 23.1 meq/L (21.0-32.0); Chloride 114 meq/L (98-107); Glomerular Filtration Rate 66 mL/min (>89); Glucose,Random 128 mg/dL (74-106); Potassium 3.5 meq/L (3.5-5.1); Sodium 145 meq/L (136-145); Total Protein 7.1 g/dL (6.4-8.2)
--- NOTE | 2018-03-24 15:13 | P.CONPSY ---
Provisional Diagnosis Admission Date: March 23, 2018 22:24 Mode I.: Delirium, DKA, history of schizophrenia History of Present Illness Service: Psychiatry Consult date: 03/24/18 Requesting Physician: Gale Romo Reason for Consult: Pak act Primary Care Provider: Ran Eddy MD, R2 History of Present Illness: Patient is a 57-year-old -[place] woman, unknown if domiciled, with a past psychiatric history of schizophrenia as per chart, unknown if previous psychiatric admissions, suicide attempt or self interest behavior, with a past medical history significant for diabetes, who was presented to the ED under Pak act that the patient was found disoriented and wandering in the room with on coming traffic and was admitted to the medical service for DKA, HPI and UTI which psychiatry was consulted due to Pak act. As per chart patient had denied any suicidal homicidal ideations, denies any perceptional disturbances, substance use, but was noted to have confusion disorientation. Patient was found lying hospital bed with sitter at bedside, initially responded to basic questions but then refused to continue interview stimulating as if she was asleep, selectively mute with senior technical writer. Despite multiple attempts to have patient engage in interview patient refused to cooperate. Medical team was updated with recent evaluation and will continue recommendations as per prior medical team which patient will be reevaluated upon more medical stabilization and may be more able to participate in evaluation. Attempts to reach collateral information were unsuccessful, as per EMR, patient' s contact: Uncle (Romeo Stack - [phone]), due to limited evaluation as stated above and concern of patient's safety due to Pak act description. PMFSH - History History Provided By: Patient - Medical History Medical History: Medical History (Last Reviewed 03/23/18 @ 18:51 by MARTIN Ortega) Patient denies medical problems - Surgical History Surgical History: Surgical History (Last Updated 03/23/18 @ 17:30 by Maddy Cantu) No history of previous surgery - Tobacco History Second Hand Smoke Exposure: Yes Tobacco Use In Past 30 Days: No Smoking Status: Never smoker - Alcohol History How Often Do You Have a Drink Containing Alcohol: Never - Substance Use History Substance History: No History of Abuse - Travel History Recent Travel in the [place] Within the Last 8 Weeks: No Recent Travel Out of the Country Within the Last 8 Weeks: No - Immunization History Tetanus Immunization: Unable to Assess Hx Influenza Vaccine This Season: Unable to Assess Medications and Allergies Active Medications: Active Medications Al Hydroxide/Mg Hydroxide (Milk Of Magnesia Liq) 30 ml PO Q12H PRN PRN Reason: Mild Constipation Bisacodyl (Dulcolax Supp) 10 mg RECTAL DAILY PRN PRN Reason: SEVERE CONSITIPATION Dextrose (D50w Vial) 50 ml IV.PUSH UNSCH PRN PRN Reason: PER HYPOGLYCEMIA PROTOCOL Glucagon (Glucagon Inj) 1 mg OTHER PRN PRN PRN Reason: for Hypoglycemia Protocol Sodium Chloride (Ns Inj) 1,000 mls @ 150 mls/hr IV.CONT .Q6H40M [facility] Last Admin: 03/24/18 12:26 Dose: 150 mls/hr Ceftriaxone Sodium 1,000 mg/ (Sodium Chloride) 100 mls @ 200 mls/hr IV.SIG Q24H [facility] Insulin Aspart (Novolog Insulin Correctional Sugar Inj) 0 unit SQ ACHS [facility]; Protocol Last Admin: 03/24/18 12:10 Dose: 15 unit Insulin Detemir (Levemir Inj) 10 unit SQ HS [facility] Last Admin: 03/23/18 23:56 Dose: 10 unit Lactulose (Lactulose Liq) 30 ml PO DAILY PRN PRN Reason: SEVERE CONSITIPATION Ondansetron HCl (Zofran Odt) 4 mg PO Q6H PRN PRN Reason: NAUSEA OR VOMITING Senna/Docusate Sodium (Yael-Colace) 1 tab PO BID [facility] Sennosides (Senokot) 17.2 mg PO Q12H PRN PRN Reason: Moderate Constipation Temazepam (Restoril) 15 mg PO HS PRN PRN Reason: INSOMNIA Allergies Allergy/AdvReac Type Severity Reaction Status Date / Time No Known Allergies Allergy Verified 03/23/18 17:28 Home Medications Medication Instructions Recorded Confirmed Type clozapine [Clozaril] 200 mg PO BID 03/23/18 03/23/18 History Exam Vital signs: Vital Signs 03/23/18 17:28 03/23/18 18:05 03/23/18 19:25 Temperature 99.4 F 98.6 F Pulse Rate 141 H 122 H 106 H Respiratory Rate 18 18 20 Blood Pressure 196/91 H 183/87 H 139/62 Pulse Oximetry 95 98 99 03/23/18 23:55 03/24/18 00:47 03/24/18 05:13 Temperature Pulse Rate 87 86 83 Respiratory Rate 18 18 18 Blood Pressure 191/81 H 160/72 H 161/80 H Pulse Oximetry 99 98 98 03/24/18 07:46 03/24/18 11:14 Temperature 97.8 F Pulse Rate 94 H 80 Respiratory Rate 16 16 Blood Pressure 169/87 H 188/78 H Pulse Oximetry 99 97 Intake & Output 03/23/18 03/24/18 03/24/18 18:59 06:59 18:59 Intake Total 2835 / 2835 1000 / 1000 Balance 2835 / 2835 1000 / 1000 Weight 113.398 kg Intake: IV 2835 / 2835 1000 / 1000 NS Inj 1,000 ML @ 150 mls/hr IV 735 / 735 1000 / 1000 .CONT .Q6H40M [facility]IA L Rx#:[id number] NS Inj 1,000 ML @ Wide Open IV. 1999 SIG BOLUS ONE Rx#:[id number] Rocephin Inj 1,000 MG In NS Inj 100 / 100 100 ML @ 200 mls/hr IV.SIG ONCE ONE Rx#:[id number] Mental Status Examination Appearance: Appropriate Consciousness: Alert Orientation: Person, Place, Date/Time (Year only) Speech: Hesitant Language: Adequate Fund of Knowledge: Inadequate Attention and Concentration: Inadequate Memory: Impaired Mood: Oppositional Affect: Blunt Thought Process & Associations: Other ([place]) Thought Content: Other (Unable to fully assess due to patient's limited cooperation) Hallucination Type: Other (Unable to fully assess due to patient's limited cooperation) Delusion Type: Other (Unable to fully assess due to patient's limited cooperation) Insight: Poor Judgment: Poor Assessment and Plan - Assessment (1) Delirium due to another medical condition Code(s): F05 - Delirium due to known physiological condition Status: Acute (2) DKA (diabetic ketoacidoses) Code(s): E13.10 - Other specified diabetes mellitus with ketoacidosis without coma Status: Acute - Plan Plan: Estimated LOS: [] days Patient is a 57-year-old -[place] woman who carries a diagnosis schizophrenia, unclear past psychiatric history, with a past medical history significant for diabetes who was admitted due to DKA, MAHOGANY, UTI, found to be confused and disoriented, currently under medical service for medical stabilization which psychiatry was consulted for evaluation of Pak act. Patient at this time continues to have some confusion regarding circumstances of brought to the hospital also with limited interview interaction with patient as patient was not very cooperative and may be due to delirium from ongoing medical illnesses or volitional and being selectively mute provider. Patient will require reevaluation upon patient being more medically stable to tolerate psychiatric evaluation. Please reconsult when patient is more stable medically and noted to have less confusion/disorientation and able to engage in interview with psychiatric evaluation. Consult appreciated. Justification for Continued Inpatient Stay: At risk of further decompensation a lower level of care. (2) DKA (diabetic ketoacidoses) Qualifiers: Diabetes mellitus type: type 1 Diabetes mellitus complication detail: without coma Qualified Code(s): E10.10 - Type 1 diabetes mellitus with ketoacidosis without coma
[2018-03-24 15:54] LABS: Hemoglobin A1c 14.6 % (4.3-6.0)
[2018-03-24] MEDS: Senna/Docusate Sodium 8.6/50 MG Tablet PO SCH ×2 (20:22)
[2018-03-24] MEDS: Lisinopril 20 MG Tablet PO SCH (23:35)
[2018-03-25] MEDS: Insulin Detemir Inj 1,000 UNIT/10 ML Vial SQ SCH (00:14)
[2018-03-25] MEDS: Sod Chloride 0.9% Inj 1,000 ML IV.CONT SCH ×2 (02:52→22:22)
[2018-03-25] MEDS: Lisinopril 20 MG Tablet PO SCH ×2 (08:30→22:22)
[2018-03-25 08:42] LABS: Hematocrit 32.4 % (35.0-46.0); Hemoglobin 10.4 gm/dL (11.6-15.3); Mean Corpuscular HGB Conc 32.2 % (32.0-36.0); Mean Corpuscular Hemoglobin 26.6 pg (27.0-34.0); Mean Corpuscular Volume 82.5 fL (80.0-100.0); Mean Platelet Volume 8.3 fL (7.0-11.0); Platelet Count 457 th/mm3 (150-450); Red Blood Count 3.92 mil/mm3 (4.00-5.30); Red Cell Distribution Width 14.4 % (11.6-17.2); White Blood Count 12.1 th/mm3 (4.0-11.0)
[2018-03-25 09:12] LABS: Calcium 8.6 mg/dL (8.5-10.1); Carbon Dioxide 18.1 meq/L (21.0-32.0); Potassium 3.4 meq/L (3.5-5.1)
[2018-03-25] MEDS: Senna/Docusate Sodium 8.6/50 MG Tablet PO SCH ×2 (09:48→22:22)
[2018-03-25] MEDS: Insulin NovoLOG Aspart Correctional Sugar Inj SQ SCH ×4 (09:48→22:22)
[2018-03-25] MEDS ORDERED: Insulin Detemir Inj 1,000 UNIT/10 ML Vial SQ SCH (13:23)
--- NOTE | 2018-03-25 13:32 | P.PN ---
Subjective Interval history: Follow-up for diabetes mellitus, DKA, schizophrenia. Patient is currently doing well. However she is not talking much. She remains quite when asked a question. No fever or chills. Physical Exam Vital signs: Vital Signs 03/24/18 16:00 03/24/18 20:00 03/25/18 00:00 Temperature 98.3 F 98 F 98 F Pulse Rate 83 78 91 H Respiratory Rate 16 16 18 Blood Pressure 163/74 H 170/80 H 185/87 H Pulse Oximetry 96 97 98 03/25/18 04:00 03/25/18 08:00 03/25/18 12:00 Temperature 98 F 98.1 F 97.8 F Pulse Rate 89 91 H 82 Respiratory Rate 16 18 17 Blood Pressure 183/79 H 168/97 H 188/90 H Pulse Oximetry 99 96 99 Intake & Output 03/24/18 03/25/18 03/25/18 18:59 06:59 18:59 Intake Total 1000 / 1000 1145 / 1145 Balance 1000 / 1000 1145 / 1145 Weight 113.6 kg Intake: IV 1000 / 1000 1000 / 1000 NS Inj 1,000 ML @ 150 mls/hr IV 1000 / 1000 1000 / 1000 .CONT .Q6H40M MARIA L Rx#:[id number] Oral 145 / 145 Narrative: GENERAL: Patient is guarded. Refused to participate. Does not answer questions. CARDIOVASCULAR: Regular rate and rhythm without murmurs, gallops, or rubs. RESPIRATORY: Breath sounds equal bilaterally. No accessory muscle use. GASTROINTESTINAL: Abdomen soft, non-tender, nondistended. MUSCULOSKELETAL: No cyanosis, or edema. Psych: Withdrawn. Guarded Results - Labs CBC & Chem 7: 03/25/18 08:20 03/25/18 08:20 Laboratory Results - last 24 hr 03/24/18 03/24/18 03/24/18 13:44 13:44 13:44 WBC 12.2 H RBC 3.81 L Hgb 10.1 L Hct 31.7 L MCV 83.0 MCH 26.6 L MCHC 32.0 RDW 14.3 Plt Count 450 MPV 7.8 Neut % (Auto) 69.0 Lymph % (Auto) 23.7 Jenkins % (Auto) 6.8 Eos % (Auto) 0.2 Baso % (Auto) 0.3 Neut # (Auto) 8.4 H Lymph # (Auto) 2.9 Jenkins # (Auto) 0.8 Eos # (Auto) 0.0 Baso # (Auto) 0.0 WBC Differential . Differential Comment Auto diff final Sodium 145 Potassium 3.5 Chloride 114 H Carbon Dioxide 23.1 Anion Gap 8 BUN 24 H Creatinine 1.03 H Estimated GFR 66 L POC Glucose Random Glucose 128 H D Hemoglobin A1c 14.6 H Calcium 8.2 L Total Bilirubin 0.3 AST 13 L ALT 15 Alkaline Phosphatase 76 Total Protein 7.1 D Albumin 3.1 L D 03/24/18 03/24/18 03/24/18 17:00 17:41 20:19 WBC RBC Hgb Hct MCV MCH MCHC RDW Plt Count MPV Neut % (Auto) Lymph % (Auto) Jenkins % (Auto) Eos % (Auto) Baso % (Auto) Neut # (Auto) Lymph # (Auto) Jenkins # (Auto) Eos # (Auto) Baso # (Auto) WBC Differential Differential Comment Sodium Potassium Chloride Carbon Dioxide Anion Gap BUN Creatinine Estimated GFR POC Glucose 59 L 131 H 184 H Random Glucose Hemoglobin A1c Calcium Total Bilirubin AST ALT Alkaline Phosphatase Total Protein Albumin 03/25/18 03/25/18 03/25/18 08:20 08:20 08:30 WBC 12.1 H RBC 3.92 L Hgb 10.4 L Hct 32.4 L MCV 82.5 MCH 26.6 L MCHC 32.2 RDW 14.4 Plt Count 457 H MPV 8.3 Neut % (Auto) Lymph % (Auto) Jenkins % (Auto) Eos % (Auto) Baso % (Auto) Neut # (Auto) Lymph # (Auto) Jenkins # (Auto) Eos # (Auto) Baso # (Auto) WBC Differential Differential Comment Sodium 140 Potassium 3.4 L Chloride 109 H Carbon Dioxide 18.1 L Anion Gap 13 BUN 16 Creatinine 0.90 Estimated GFR 78 L POC Glucose 232 H Random Glucose 209 H Hemoglobin A1c Calcium 8.6 Total Bilirubin AST ALT Alkaline Phosphatase Total Protein Albumin 03/25/18 11:39 WBC RBC Hgb Hct MCV MCH MCHC RDW Plt Count MPV Neut % (Auto) Lymph % (Auto) Jenkins % (Auto) Eos % (Auto) Baso % (Auto) Neut # (Auto) Lymph # (Auto) Jenkins # (Auto) Eos # (Auto) Baso # (Auto) WBC Differential Differential Comment Sodium Potassium Chloride Carbon Dioxide Anion Gap BUN Creatinine Estimated GFR POC Glucose 280 H Random Glucose Hemoglobin A1c Calcium Total Bilirubin AST ALT Alkaline Phosphatase Total Protein Albumin Microbiology 03/23/18 20:29 Clean Catch Urine Urine Culture - Final >100,000 cfu/mL mixed gram positive tracy (probable contaminantes) Assessment and Plan - Assessment (1) DM (diabetes mellitus) Code(s): E11.9 - Type 2 diabetes mellitus without complications Status: Acute (2) Suicidal ideation Code(s): R45.851 - Suicidal ideations Status: Acute (3) UTI (urinary tract infection) Code(s): N39.0 - Urinary tract infection, site not specified Status: Acute (4) Hypokalemia Code(s): E87.6 - Hypokalemia Status: Acute (5) MAHOGANY (acute kidney injury) Code(s): N17.9 - Acute kidney failure, unspecified Status: Acute (6) Hypertension Code(s): I10 - Essential (primary) hypertension Status: Acute - Plan This is a 57-year-old female with a PMH of DM who is brought to the ER by Police under Pak Act after being found wandering in the street w/ oncoming traffic. Pt noted to be confused/disoriented. On arrival, BP 196/91, HR 141, O2 sat 95% on RA, Temp 99.4. S/p IVF in ER w/ repeat BP 160/72, HR 86. WBC 16. Creatinine 2.49, previously 0.85 on 07/18/06. K+ 3.3. CO2 13.4. AG 25. BS 535. S/p 40mEqu K+ x4 w/ repeat K+ 3.2. Creatinine 1.77. BS 233. ABG w/ pH 7.38. U/a positive for UTI. UDS negative, Alcohol negative. Diabetic ketoacidosis Diabetes mellitus -Anion gap was 25 on arrival. Now 13 -Increase Levemir from 10->12 units nightly. Continue sliding scale insulin. -Start pre-meal insulin with aspart 5 units 3 times daily before meals. Acute kidney injury Mild hypokalemia -Creatinine improved from 2.49 on admission to 0.90 currently. -Potassium 3.4 today. Will replace with potassium chloride 10 mEq twice a day for 5 days. Suspected UTI -culture is growing mixed tracy. Will discontinue antibiotics. Hypertension -Continue lisinopril 20 mg twice daily. Schizophrenia -psychiatrically evaluated patient on 03/24/2018. Patient is currently medically stable. -We will request psychiatry to reevaluate patient today or tomorrow. Full code. Ambulation.
[2018-03-26] MEDS: Sod Chloride 0.9% Inj 1,000 ML IV.CONT SCH ×3 (02:56→07:45)
[2018-03-26 04:53] VITALS: BP 161/76; PULSE 81; RESP 21; TEMP 97.4; O2SAT 100
--- NOTE | 2018-03-26 09:24 | P.PNPSY ---
Subjective Remarks: Patient seen and examined. Chart reviewed. Case d/w Dr. Haines. Case d/w sitter at the bedside who reports patient has had long periods of mutism and motionlessness. On my exam, patient presents with prominent negativism. She is interpersonally odd. She answers "no, I'm fine" to most of my questions. She is frankly responding to internal stimuli. She denies SI/HI but seems unreliable to contract for safety. Denies a psychiatric history initially but does admit to at least one previous psych hospitalization. Denies any history of suicide attempts. Denies FH of mental illness. Reports only a remote history of chem dep issues. A&O x 3, and I do not suspect significant contribution from delirium at present. No physical complaints. Review of Systems All other systems reviewed negative except as stated in HPI (Limitation: Psychosis) Mental Status Examination Appearance: Disheveled Consciousness: Alert Orientation: Person, Place, Date/Time Motor Activity: Other (No posturing, no stereotypies, no other motor abnormalities noted) Speech: Hesitant Language: Adequate Fund of Knowledge: Inadequate Attention and Concentration: Inadequate Memory: Impaired Mood: Other ([place]) Affect: Blunt Thought Process & Associations: Other ([place]) Thought Content: Hallucinations Hallucination Type: Other (Internally stimulated) Delusion Type: Other (Guarded, possibly some paranoia) Suicidal Ideation: No (Unreliable to contract for safety) Homicidal Ideation: No (Unreliable to contract for safety) Insight: Poor Judgment: Poor Assessment and Plan - Assessment (1) Unspecified psychosis Code(s): F29 - Unspecified psychosis not due to a substance or known physiological condition Status: Acute - Plan Plan: Agree with transfer to inpatient psych. Patient appears to be experiencing decompensation of psychotic illness. I have apprised psych set up and charger of planned transfer. Case d/w Dr. Haines. Justification for Continued Inpatient Stay: Per primary team.
--- NOTE | 2018-03-26 09:27 | P.DS ---
Date of admission: 03/23/18 22:24 Primary care physician: Ran Eddy MD, R2 Brief History from admission: This is a 57-year-old female with a PMH of DM who is brought to the ER by Police under Pak Act after being found wandering in the street w/ oncoming traffic. Pt noted to be confused/disoriented, very poor historian. Denies any complaints at this time. On arrival, BP 196/91, HR 141, O2 sat 95% on RA, Temp 99.4. S/p IVF in ER w/ repeat BP 160/72, HR 86. WBC 16. Creatinine 2.49, previously 0.85 on 07/18/06. K+ 3.3. CO2 13.4. AG 25. BS 535. S/p 40mEqu K + x4 w/ repeat K+ 3.2. Creatinine 1.77. BS 233. ABG w/ pH 7.38. U/a positive for UTI. UDS negative, Alcohol negative. S/p Insulin 11u in ER and IVF. DS: Diagnosis - Discharge Diagnosis (1) DM (diabetes mellitus) Status: Chronic (2) Suicidal ideation Status: Acute (3) UTI (urinary tract infection) Status: Acute (4) Hypokalemia Status: Acute (5) MAHOGANY (acute kidney injury) Status: Acute (6) Hypertension Status: Chronic DS: Summary Hospital Course: This is a 57-year-old female with a PMH of DM who is brought to the ER by Police under Pak Act after being found wandering in the street w/ oncoming traffic. Pt noted to be confused/disoriented. On arrival, BP 196/91, HR 141, O2 sat 95% on RA, Temp 99.4. S/p IVF in ER w/ repeat BP 160/72, HR 86. WBC 16. Creatinine 2.49, previously 0.85 on 07/18/06. K+ 3.3. CO2 13.4. AG 25. BS 535. S/p 40mEqu K+ x4 w/ repeat K+ 3.2. Creatinine 1.77. BS 233. ABG w/ pH 7.38. U/a positive for UTI. UDS negative, Alcohol negative. Diabetic ketoacidosis Diabetes mellitus -Anion gap was 25 on arrival. Improved to 13 -Increased Levemir from 10->12 units nightly. Continue sliding scale insulin. -pre-meal insulin with aspart 5 units 3 times daily before meals. Acute kidney injury Mild hypokalemia -Creatinine improved from 2.49 on admission to 0.90 currently. -Potassium 3.4. Suspected UTI -culture is growing mixed tracy. antibiotics discontinued. Hypertension -Continue lisinopril 20 mg twice daily. Schizophrenia -psychiatrically evaluated patient on 03/24/2018. Patient is currently medically stable. -Discussed with psychiatrist - Patient is medically cleared and can go to psychiatry unit today. Full code. Ambulation. - Time Spent with Patient Total time spent providing and/or coordinating discharge services: Less than 30 minutes Exam Vital signs: Vital Signs 03/25/18 12:00 03/25/18 16:00 03/25/18 20:00 Temperature 97.8 F 97.8 F 98 F Pulse Rate 82 82 82 Respiratory Rate 17 16 16 Blood Pressure 188/90 H 149/69 H 139/82 Pulse Oximetry 99 100 99 03/25/18 23:41 03/26/18 04:00 Temperature 98 F 97.4 F L Pulse Rate 84 81 Respiratory Rate 15 21 Blood Pressure 128/76 161/76 H Pulse Oximetry 99 100 Intake & Output 03/25/18 03/26/18 03/26/18 18:59 06:59 18:59 Other: # Voids 4 Date of Last Bowel Movement 03/25/18 Narrative: GENERAL: Much more alert, conversant, no acute distress. SKIN: Warm and dry. HEAD: Normocephalic. EYES: No scleral icterus. No injection or drainage. NECK: Supple, trachea midline. No JVD or lymphadenopathy. CARDIOVASCULAR: Regular rate and rhythm without murmurs, gallops, or rubs. RESPIRATORY: Breath sounds equal bilaterally. No accessory muscle use. GASTROINTESTINAL: Abdomen soft, non-tender, nondistended. MUSCULOSKELETAL: No cyanosis, or edema. BACK: Nontender without obvious deformity. No CVA tenderness. Results Procedures completed during hospitalization: None. Labs on day of discharge: Labs from last 24 hours 03/25/18 03/25/18 03/25/18 22:21 16:51 11:39 POC Glucose 124 H 123 H 280 H Discharge Plan - Discharge Disposition Patient Disposition: 63 [facility] To [facility] Facility - Discharge Condition Condition: Good - Discharge Order Discharge Orders: Discharge Order (Routine); Ordered 03/26/18 Ordered By: Ginny Haines - Discharge Details Anticipated Discharge Date: 03/26/18 Discharge Comment: Patient is medically cleared to go to Psych. Discussed with Psychiatrist. - Physicians Team Primary Care Provider: Ran Eddy Attending Provider: Ginny Haines Other Providers: Abrahan Arreaga MD ; Damien Perez MD
[2018-03-26] MEDS: Insulin NovoLOG Aspart Correctional Sugar Inj SQ SCH (10:02)
[2018-03-26] MEDS: Senna/Docusate Sodium 8.6/50 MG Tablet PO SCH (10:03)
[2018-03-26] MEDS: Lisinopril 20 MG Tablet PO SCH (10:03)
== END 2018-03-26 10:51 ==
LOC: NEPJ 17:21 → NEDA 22:24 → NEDH 03-24 05:14 → N05 03-24 11:02
PROVIDERS: ADMIT Hospitalist; ATTEND Hospitalist
DX: Z79.4 Long term (current) use of insulin; F05 Delirium due to known physiological condition; Z77.22 Contact with and (suspected) exposure to environmental tobacco smoke (acute) (chronic); F29 Unspecified psychosis not due to a substance or known physiological condition; N17.9 Acute kidney failure, unspecified; E10.10 Type 1 diabetes mellitus with ketoacidosis without coma; E87.6 Hypokalemia; I10 Essential (primary) hypertension; R45.851 Suicidal ideations

== ENCOUNTER 2018-03-26 10:35 | Inpatient (IN) ==
[2018-03-26] MEDS ORDERED: Bisacodyl 10 MG Supp RECTAL PRN (13:58)
[2018-03-26] MEDS ORDERED: Aluminum/Magnesium/Simethacone Susp 30 ML UDC PO PRN (13:58)
[2018-03-26] MEDS: Insulin NovoLOG Aspart Correctional Sugar Inj SQ SCH ×2 (17:00→17:56)
--- NOTE | 2018-03-26 18:23 | P.CON ---
History of Present Illness Service: Hospitalist Consult date: 03/26/18 Requesting Physician: Damien Perez Reason for Consult: Medical management Primary Care Provider: UNKNOWN Chief Complaint: DM History of Present Illness: Patient is a 57-year-old female with past medical history of diabetes and hypertension who is admitted for confusion and psychiatric disturbance. She was recently hospitalized under [place] act after being found wandering the streets confused and disoriented. Upon admission to the hospital she was found to be in DKA and to have a UTI. She is a very poor historian. Patient is seen in room. She denies any problems or concerns. Denies any past medical or surgical history. Seems very reluctant to interact with me and appears to be internally motivated. Denies any pain. Denies being either a diabetic or having hypertension. Review of Systems All other systems reviewed negative except as stated in HPI [facility] - History History Provided By: Patient, Medical Record - Medical / Surgical Hx Neg / Unobtainable Medical Problems Denied: Yes Surgical History: Unable to Obtain - Medical History Medical History: Medical History (Last Reviewed 03/23/18 @ 18:51 by MARTIN Ortega) Patient denies medical problems - Surgical History Surgical History: Surgical History (Last Reviewed 03/26/18 @ 18:17 by MARTIN Duran) No history of previous surgery - Family History Family History: Family History (Last Reviewed 03/26/18 @ 18:17 by MARTIN Duran) Other Family history unobtainable due to patient's condition - Tobacco History Second Hand Smoke Exposure: No Tobacco Use In Past 30 Days: No (its been a long time ago) Smoking Status: Former smoker Tobacco Type: Cigarettes - Alcohol History How Often Do You Have a Drink Containing Alcohol: Never - Substance Use History Substance History: Past History - Immunization History Hx Influenza Vaccine This Season: Yes Medications and Allergies Active Medications: Active Medications Al Hydrox/Mg Hydrox/Simethicone (Mag-Al Plus Susp Liq) 30 ml PO Q6H PRN PRN Reason: DYSPEPSIA Al Hydroxide/Mg Hydroxide (Milk Of Magnesia Liq) 30 ml PO Q12H PRN PRN Reason: Mild Constipation Bisacodyl (Dulcolax Supp) 10 mg RECTAL DAILY PRN PRN Reason: SEVERE CONSITIPATION Dextrose (D50w Syringe) 50 ml IV.PUSH UNSCH PRN PRN Reason: PER HYPOGLYCEMIA PROTOCOL Glucagon (Glucagon Inj) 1 mg IV.PUSH ONCE PRN PRN Reason: PER HYPOGLYCEMIA PROTOCOL Insulin Aspart (Novolog Insulin Correctional Sugar Inj) 5 unit SQ TIDAC [facility] Last Admin: 03/26/18 17:00 Dose: 5 unit Insulin Aspart (Novolog Insulin Correctional Sugar Inj) 0 unit SQ ACHS [facility]; Protocol Last Admin: 03/26/18 17:56 Dose: 5 unit Insulin Detemir (Levemir Inj) 12 unit SQ HS [facility] Lactulose (Lactulose Liq) 30 ml PO DAILY PRN PRN Reason: SEVERE CONSITIPATION Lisinopril (Prinivil) 20 mg PO BID [facility] L Senna/Docusate Sodium (Yael-Colace) 1 tab PO BID [facility]IAL Sennosides (Senokot) 17.2 mg PO Q12H PRN PRN Reason: Moderate Constipation Allergies Allergy/AdvReac Type Severity Reaction Status Date / Time No Known Allergies Allergy Verified 03/23/18 17:28 Physical Exam Vital signs: Vital Signs 03/26/18 12:02 03/26/18 17:11 Temperature 97.4 F L Pulse Rate 85 Respiratory Rate 18 18 Blood Pressure 164/73 H 171/77 H Pulse Oximetry 99 98 Intake & Output 03/25/18 03/26/18 03/26/18 18:59 06:59 18:59 Intake Total 720 / 720 Balance 720 / 720 Weight 87.3 kg Intake: Oral 720 / 720 Other: # Voids 2 # Bowel Movements 1 Weight On Admission 87.3 kg Narrative: GENERAL: Well-nourished, well-developed adult female in no obvious distress; slightly disheveled appearing. SKIN: Warm and dry. HEAD: Atraumatic. Normocephalic. CARDIOVASCULAR: Regular rate and rhythm. RESPIRATORY: No accessory muscle use. Clear to auscultation. Breath sounds equal bilaterally. GASTROINTESTINAL: Abdomen soft, non-tender, non- distended. Positive bowel sounds. MUSCULOSKELETAL: Extremities without clubbing, cyanosis, or edema. No obvious deformities. NEUROLOGICAL: Awake and alert. No obvious cranial nerve deficits. Motor grossly within normal limits. Normal speech. PSYCHIATRIC:insight and judgment poor. Assessment and Plan - Assessment (1) Hypertension Code(s): I10 - Essential (primary) hypertension Status: Chronic (2) Unspecified psychosis Code(s): F29 - Unspecified psychosis not due to a substance or known physiological condition Status: Acute (3) DM (diabetes mellitus) Code(s): E11.9 - Type 2 diabetes mellitus without complications Status: Chronic - Plan Patient is a 57-year-old female with past medical history of diabetes and hypertension who is admitted for confusion and psychiatric disturbance. She was recently hospitalized under [place] act after being found wandering the streets confused and disoriented. Upon admission to the hospital she was found to be in DKA and to have a UTI. This has resolved and she is now being managed by psychiatry. she is a very poor historian. Psychosis -Managed by psychiatryprimary DM -Sliding-scale insulin -Diabetic diet Hypertension -Lisinopril 20 mg DVT prophylaxis: Patient is ambulatory Discussed with: Patient and nurse Thank you for this consult. We appreciate the opportunity to take care of this patient with you.
[2018-03-26] MEDS ORDERED: Insulin Detemir Inj 1,000 UNIT/10 ML Vial SQ SCH (21:00)
[2018-03-26] MEDS: Insulin Detemir Inj 1,000 UNIT/10 ML Vial SQ SCH (21:59)
[2018-03-27] MEDS: Senna/Docusate Sodium 8.6/50 MG Tablet PO SCH ×3 (05:54→20:29)
[2018-03-27] MEDS: Insulin NovoLOG Aspart Correctional Sugar Inj SQ SCH ×6 (11:15→18:35)
[2018-03-27] MEDS: Lisinopril 20 MG Tablet PO SCH ×2 (11:17→20:29)
--- NOTE | 2018-03-27 12:23 | P.PN ---
Subjective Interval history: Patient is seen sitting on side of bed. She is laughing quietly to herself. She is limited in her interaction with me and appears to be very internally motivated. Answers all questions with "okay". Nurse reports no concerning events overnight. Physical Exam Vital signs: Vital Signs 03/26/18 17:11 03/27/18 05:44 Temperature 97.4 F L 98.3 F Pulse Rate 85 76 Respiratory Rate 18 16 Blood Pressure 171/77 H 173/84 H Pulse Oximetry 98 98 Intake & Output 03/26/18 03/27/18 03/27/18 18:59 06:59 18:59 Intake Total 720 / 720 60 / 60 480 / 480 Output Total Balance 720 / 720 59 / 59 480 / 480 Weight 87.3 kg Intake: Oral 720 / 720 60 / 60 480 / 480 Output: Urine Other: # Voids 2 # Bowel Movements 1 Weight On Admission 87.3 kg Narrative: GENERAL: Well-nourished, well-developed adult female in no obvious distress; slightly disheveled appearing. SKIN: Warm and dry. HEAD: Atraumatic. Normocephalic. CARDIOVASCULAR: Regular rate and rhythm. RESPIRATORY: No accessory muscle use. Clear to auscultation. Breath sounds equal bilaterally. GASTROINTESTINAL: Abdomen soft, non-tender, non- distended. Positive bowel sounds. MUSCULOSKELETAL: Extremities without clubbing or cyanosis. Bilateral +1 ankle edema. No obvious deformities. NEUROLOGICAL: Awake and alert. No obvious cranial nerve deficits. Motor grossly within normal limits. Normal speech. PSYCHIATRIC:insight and judgment poor. Results - Labs Laboratory Results - last 24 hr 03/26/18 03/26/18 03/27/18 16:32 20:42 06:23 POC Glucose 202 H 114 H 151 H Assessment and Plan - Assessment (1) Hypertension Code(s): I10 - Essential (primary) hypertension Status: Chronic (2) Unspecified psychosis Code(s): F29 - Unspecified psychosis not due to a substance or known physiological condition Status: Acute (3) DM (diabetes mellitus) Code(s): E11.9 - Type 2 diabetes mellitus without complications Status: Chronic - Plan Patient is a 57-year-old female with past medical history of diabetes and hypertension who is admitted for confusion and psychiatric disturbance. She was recently hospitalized under [place] act after being found wandering the streets confused and disoriented. Upon admission to the hospital she was found to be in DKA and to have a UTI. This has resolved and she is now being managed by psychiatry. she is a very poor historian. Psychosis -Managed by psychiatryprimary DM -Sliding-scale insulin -Diabetic diet Hypertension -Lisinopril 20 mg -Blood pressures very poorly controlled. Patient is somewhat resistant to taking medications per nursing. Edema -We will add Lasix p.o. daily. Monitor electrolytes. DVT prophylaxis: Patient is ambulatory Discussed with: Patient and nurse Thank you for this consult. We appreciate the opportunity to take care of this patient with you.
--- NOTE | 2018-03-27 17:35 | P.HPPSY ---
Provisional Diagnosis Admission Date: March 26, 2018 11:03 Camas I.: Schizophrenia Competence Certification of Person's Competence To Provide Express and Informed Consent I have personally examined Maulik Diaz, a person being served at [facility] on, March 27, 2018 1731. Express and informed consent means consent voluntarily given in writing, by a competent person, after sufficient explanation and disclosure of the subject matter involved to enable the person to make a knowing and willful decision without any element of force, fraud, deceit, duress, or other form of constraint or coercion. This person is 18 years of age or older, is not now known to be incompetent to consent to treatment with a guardian advocate, and does not have a health care surrogate or proxy currently making medical treatment decisions. I have found this person to be one of the following: [] Competent to provide express and informed consent, as defined above, for voluntary admission to this facility and is competent to provide express and informed consent for treatment. He/she has the consistent capacity to make well reasoned, willful, and knowing decisions concerning his or her medical or mental health treatment. The person fully and consistently understands the purpose of the admission for examination/placement and is fully capable of personally exercising all rights assured under [place] Incompetent to provide express and informed consent to voluntary admission , and this is incompetent to provide express and informed consent to treatment. The person must be transferred to involuntary status and a petition for a guardian advocate filed with the Circuit Court. [] Refusing to provide express and informed consent to voluntary admission but is competent to provide express and informed consent for treatment. The person must be discharged or transferred to involuntary status. Form shall be completed within 24 hours of a person's arrival at the receiving facility and filed in the clinical record of each person: 1. Admitted on a voluntary basis 2. Permitted to provide express and informed consent to his/her own treatment 3. Allowed to transfer from involuntary to voluntary status 4. Prior to permitting a person to consent to his or her own treatment after having been previously found incompetent to consent to treatment. History of Present Illness Capacity: Lacks capacity History of Present Illness: Patient is a 57 y/o woman, unknown marital status, with past psychiatric history of schizophrenia, one prior psychiatric admission, unknown prior suicide attempts or self injurious behavior, with past medical history of HTN, DM, who was recently discharged from medical floor due to DKA, seen by psychiatry during that admission is a consult was noted to be acutely psychotic and transferred to the inpatient psychiatry unit for further evaluation and management. Discussion nursing staff reported the patient seclusive to her room , refusing meds less evening, had poor sleep. Patient also had refuse morning meds. Patient was found sitting in hospital bed noted to be smiling inappropriately laughing at times to self and responding to internal stimuli during interview. Patient when seen previously. "I will be alright", states that she is significantly olanzapine and agrees to continue his medications here in the hospital and states that she would take "2 pills at night". Patient clubbing, thought blocking, internally preoccupied states that her last hospitalization was "a long time ago". Patient states that she has an outpatient provider, [facility] and that she was previously followed by [facility] team. Patient was encouraged to continue treatment which she agreed when asked why she refused medications this morning patient states that she had reported taking. Past psychiatric history: Patient with psychiatric, previous suicide attempts over the behavior reports being followed by a 68 acting previously on clozapine. Past medical history: Hypertension diabetes Allergies: NKDA Social history: Patient as per chart domiciled with uncle and has a sister who may serve as health care surrogate. Several attempts have been made to contact family but unsuccessful up to now. - Inpatient Certification I certify that the inpatient services were ordered in accordance with Medicare regulations governing the order. This includes certification that hospital inpatient services are reasonable and necessary and in the case of services not specified as inpatient-only under 42 CFR 419.22(n), that they are appropriately provided as inpatient services in accordance to with the 2-midnight benchmark under 43 CFR 412.3(e) I certify that inpatient psychiatric hospital services are medically necessary. Evaluation and treatment and/or diagnostic testing are expected to improve the patient's condition. The patient needs on a daily basis, active treatment furnished directly by or requiring the supervision of inpatient psychiatric facility personnel. Estimated Total Length of Stay (Days): 10 Plans for Post Hospital Care: Not yet determined Review of Systems All other systems reviewed negative except as stated in HPI [facility] - History History Provided By: Patient, Medical Record - Medical / Surgical Hx Neg / Unobtainable Medical Problems Denied: Yes - Medical History Medical History: Medical History (Last Reviewed 03/26/18 @ 18:17 by MARTIN Duran) Patient denies medical problems - Surgical History Surgical History: Surgical History (Last Reviewed 03/26/18 @ 18:17 by MARTIN Duran) No history of previous surgery - Family History Family History: Family History (Last Reviewed 03/26/18 @ 18:17 by MARTIN Duran) Other Family history unobtainable due to patient's condition - Tobacco History Second Hand Smoke Exposure: No Tobacco Use In Past 30 Days: No (its been a long time ago) Smoking Status: Former smoker Tobacco Type: Cigarettes - Alcohol History How Often Do You Have a Drink Containing Alcohol: Never - Substance Use History Substance History: Unable to Obtain - Immunization History Hx Influenza Vaccine This Season: Yes Quality Measures - Psychiatric History Violence risk to others in the last 6 months: low Violence risk to self in the last 6 months: low - Substance Abuse History Drug or alcohol use in the past 12 months: denies - Patient Strengths Patient's strengths (minimum of 2): Verbal and communicative Medications and Allergies Active Medications: Active Medications Al Hydrox/Mg Hydrox/Simethicone (Mag-Al Plus Susp Liq) 30 ml PO Q6H PRN PRN Reason: DYSPEPSIA Al Hydroxide/Mg Hydroxide (Milk Of Magnesia Liq) 30 ml PO Q12H PRN PRN Reason: Mild Constipation Bisacodyl (Dulcolax Supp) 10 mg RECTAL DAILY PRN PRN Reason: SEVERE CONSITIPATION Dextrose (D50w Syringe) 50 ml IV.PUSH UNSCH PRN PRN Reason: PER HYPOGLYCEMIA PROTOCOL Furosemide (Lasix) 20 mg PO DAILY MARIA L Glucagon (Glucagon Inj) 1 mg IV.PUSH ONCE PRN PRN Reason: PER HYPOGLYCEMIA PROTOCOL Insulin Aspart (Novolog Insulin Correctional Sugar Inj) 5 unit SQ TIDAC [facility] Last Admin: 03/27/18 14:05 Dose: Not Given Insulin Aspart (Novolog Insulin Correctional Sugar Inj) 0 unit SQ ACHS [facility]; Protocol Last Admin: 03/27/18 17:30 Dose: Not Given Insulin Detemir (Levemir Inj) 12 unit SQ HS [facility] Last Admin: 03/26/18 21:59 Dose: 12 unit Lactulose (Lactulose Liq) 30 ml PO DAILY PRN PRN Reason: SEVERE CONSITIPATION Lisinopril (Prinivil) 20 mg PO BID [facility] Last Admin: 03/27/18 11:17 Dose: Not Given Senna/Docusate Sodium (Yael-Colace) 1 tab PO BID [facility] Last Admin: 03/27/18 11:16 Dose: Not Given Sennosides (Senokot) 17.2 mg PO Q12H PRN PRN Reason: Moderate Constipation Allergies Allergy/AdvReac Type Severity Reaction Status Date / Time No Known Allergies Allergy Verified 03/23/18 17:28 Results - Labs Labs: Laboratory Results - last 24 hr 03/26/18 03/27/18 20:42 06:23 POC Glucose 114 H 151 H Exam Vital signs: Vital Signs 03/27/18 05:44 Temperature 98.3 F Pulse Rate 76 Respiratory Rate 16 Blood Pressure 173/84 H Pulse Oximetry 98 Intake & Output 03/26/18 03/27/18 03/27/18 18:59 06:59 18:59 Intake Total 720 / 720 60 / 60 960 / 960 Output Total Balance 720 / 720 59 / 59 960 / 960 Weight 87.3 kg Intake: Oral 720 / 720 60 / 60 960 / 960 Output: Urine Other: # Voids 2 # Bowel Movements 1 Weight On Admission 87.3 kg Narrative: Patient is not noted to be acute distress, no signs of gross motor abnormalities , no signs of tremor. no psychomotor agitation or retardation. Mental Status Examination Appearance: Disheveled Consciousness: Alert Orientation: Person Speech: Hesitant Language: Adequate Fund of Knowledge: Inadequate Attention and Concentration: Inadequate Memory: Impaired Mood: Other ("I'll be alright") Affect: Blunt Thought Process & Associations: Other (concrete) Thought Content: Hallucinations, Thought blocking Hallucination Type: Auditory (Denies but noted to be responding to internal stimuli during interview) Delusion Type: Other (Unable to assess due to disorganized thought process) Suicidal Ideation: No Suicidal Plan: No Suicidal Intention: No Homicidal Ideation: No Homicidal Plan: No Homicidal Intention: No Insight: Poor Judgment: Poor Assessment and Plan - Assessment (1) Acute exacerbation of chronic schizophrenia Code(s): F20.9 - Schizophrenia, unspecified Status: Acute - Plan Plan: Estimated LOS: [] days Patient is a 57-year-old woman who carries a diagnosis of threatening, previous psychiatric admissions, recently discharged from medical service for DKA and noted to be acutely psychotic which patient was transferred to the inpatient psychiatry for further evaluation and management and for stabilization. Patient this time continues to be psychotic, disorganized, noted prominent thought blocking as well as noted to be responding to internal stimuli during interview. Patient to resume clozapine to 50 mg p.o. at bedtime with upper titration for stabilization. Medication will be started once healthcare surrogate is established with family members. Several times in the basement contact collateral contacts but unsuccessful at this time. Continue to monitor with behavior. Continue recommendations as per prior medical team. Hospitalist input appreciated. Discharge planning a progress. Justification for Continued Inpatient Stay: At risk for further decompensation if at lower level of care.
[2018-03-27] MEDS: Furosemide 20 MG Tablet PO SCH (18:24)
[2018-03-27] MEDS: Insulin Detemir Inj 1,000 UNIT/10 ML Vial SQ SCH (20:34)
[2018-03-28 08:30] LABS: Baso % (Auto) 0.3 % (0.0-2.0); Eos # (Auto) 0.1 th/mm3 (0.0-0.4); Eos % (Auto) 0.8 % (0.0-4.0); Hematocrit 31.1 % (35.0-46.0); Hemoglobin 10.9 gm/dL (11.6-15.3); Lymph # (Auto) 2.2 th/mm3 (1.0-4.8); Lymph % (Auto) 21.8 % (9.0-44.0); Mean Corpuscular Hemoglobin 28.6 pg (27.0-34.0); Mean Corpuscular Volume 81.5 fL (80.0-100.0); Mean Platelet Volume 8.4 fL (7.0-11.0); Mono # (Auto) 0.7 th/mm3 (0.0-0.9); Mono % (Auto) 6.6 % (0.0-8.0); Neut # (Auto) 7.2 th/mm3 (1.8-7.7); Neut % (Auto) 70.5 % (16.0-70.0); Platelet Count 459 th/mm3 (150-450); Red Blood Count 3.81 mil/mm3 (4.00-5.30); Red Cell Distribution Width 14.1 % (11.6-17.2); White Blood Count 10.2 th/mm3 (4.0-11.0)
[2018-03-28 08:56] LABS: Albumin 3.2 g/dL (3.4-5.0); Anion Gap 11 meq/L (5-15); Aspartate Aminotransferase 25 U/L (15-37); Blood Urea Nitrogen 13 mg/dL (7-18); Calcium 8.3 mg/dL (8.5-10.1); Carbon Dioxide 24.6 meq/L (21.0-32.0); Chloride 106 meq/L (98-107); Glomerular Filtration Rate 85 mL/min (>89); Glucose,Random 180 mg/dL (74-106); Potassium 3.4 meq/L (3.5-5.1); Sodium 142 meq/L (136-145)
[2018-03-28 08:59] LABS: Alanine Aminotransferase 21 U/L (10-53); Alkaline Phosphatase 97 U/L (45-117); Cholesterol 154 mg/dL (120-200); HDL Cholesterol 39.4 mg/dL (40.0-60.0); LDL Cholesterol,Calculated 88 mg/dL (0-99); Total Protein 7.2 g/dL (6.4-8.2); Triglycerides 132 mg/dL (42-150)
--- NOTE | 2018-03-28 09:58 | P.PN ---
Subjective Interval history: Follow-up psychosis, hypertension diabetes. Patient seen and examined, sitting on side of bed, alert and awake, patient appears to be actively hallucinating, she is talking to herself. Denies any pain. Spoke to RN who states patient continues to refuse ordered medications. Attempted to encourage patient to comply with medications, she is not engaged in conversation. Physical Exam Vital signs: Vital Signs 03/28/18 05:51 Temperature 97.3 F L Pulse Rate 91 H Respiratory Rate 18 Blood Pressure 174/74 H Pulse Oximetry 97 Intake & Output 03/27/18 03/28/18 03/28/18 18:59 06:59 18:59 Intake Total 960 / 960 0 / 0 Balance 960 / 960 0 / 0 Weight 102.1 kg Intake: Oral 960 / 960 0 / 0 Oral Supplement 0 / 0 Narrative: GENERAL: Well-nourished, well-developed adult female in no obvious distress; slightly disheveled appearing. SKIN: Warm and dry. HEAD: Atraumatic. Normocephalic. CARDIOVASCULAR: Regular rate and rhythm. RESPIRATORY: No accessory muscle use. Clear to auscultation. Breath sounds equal bilaterally. GASTROINTESTINAL: Abdomen soft, non-tender, non- distended. Positive bowel sounds. MUSCULOSKELETAL: Extremities without clubbing or cyanosis. Bilateral trace ankle edema. No obvious deformities. NEUROLOGICAL: Awake and alert. No obvious cranial nerve deficits. Motor grossly within normal limits. Normal speech. PSYCHIATRIC:insight and judgment poor. Results - Labs CBC & Chem 7: 03/28/18 07:48 03/28/18 07:48 Laboratory Results - last 24 hr 03/28/18 03/28/18 07:48 07:48 WBC 10.2 RBC 3.81 L Hgb 10.9 L Hct 31.1 L MCV 81.5 MCH 28.6 MCHC 35.0 RDW 14.1 Plt Count 459 H MPV 8.4 Neut % (Auto) 70.5 H Lymph % (Auto) 21.8 [place] % (Auto) 6.6 Eos % (Auto) 0.8 Baso % (Auto) 0.3 Neut # (Auto) 7.2 Lymph # (Auto) 2.2 [place] # (Auto) 0.7 Eos # (Auto) 0.1 Baso # (Auto) 0.0 WBC Differential . Differential Comment Auto diff final Sodium 142 Potassium 3.4 L Chloride 106 Carbon Dioxide 24.6 Anion Gap 11 BUN 13 Creatinine 0.83 Estimated GFR 85 L Random Glucose 180 H Calcium 8.3 L Total Bilirubin 0.4 AST 25 ALT 21 Alkaline Phosphatase 97 Total Protein 7.2 Albumin 3.2 L Triglycerides 132 Cholesterol 154 LDL Cholesterol, Calc 88 HDL Cholesterol 39.4 L Cholesterol/HDL Ratio 3.90 Assessment and Plan - Assessment (1) Hypertension Code(s): I10 - Essential (primary) hypertension Status: Chronic (2) Unspecified psychosis Code(s): F29 - Unspecified psychosis not due to a substance or known physiological condition Status: Acute (3) DM (diabetes mellitus) Code(s): E11.9 - Type 2 diabetes mellitus without complications Status: Chronic - Plan Patient is a 57-year-old female with past medical history of diabetes and hypertension who is admitted for confusion and psychiatric disturbance. She was recently hospitalized under [place] act after being found wandering the streets confused and disoriented. Upon admission to the hospital she was found to be in DKA and to have a UTI. This has resolved and she is now being managed by psychiatry. she is a very poor historian. Psychosis -Managed by psychiatryprimary. DM -Sliding-scale insulin as needed, follow blood sugar trends. -Diabetic diet Hypertension -Lisinopril 20 mg -Blood pressures very poorly controlled. Systolic blood pressure in the 170s. Patient has been refusing all medications. Encourage compliance. -Follow-up blood pressure trends. Edema -Added Lasix p.o. daily, although patient is refusing medications.. Monitor electrolytes. DVT prophylaxis: Patient is ambulatory Discussed with: Patient and nurse.
--- NOTE | 2018-03-28 10:00 | P.CONPSY ---
Provisional Diagnosis Admission Date: March 26, 2018 11:03 [place] I.: 1. Acute exacerbation of chronic schizophrenia [place] II.: Deferred History of Present Illness Service: Psychiatry Consult date: 03/28/18 Requesting Physician: Abrahan Arreaga Reason for Consult: Second opinion for involuntary psychiatric hospitalization Primary Care Provider: UNKNOWN Chief Complaint: DM History of Present Illness: Ms. Diaz is a 57-year-old female with a history of schizophrenia who is presently admitted to the medical psychiatric unit under a Pak act. Dr. Arreaga has evaluated the patient, and I have reviewed his documentation. I have also myself seen the patient in consultation on the medical floor prior to her transfer here. EMR reviewed. Patient seen and examined with nurse. Chart reviewed. Case discussed with nursing staff. Per nursing, patient is "refusing everything" including Accu- Cheks, medications, baths. On my examination today, the patient is frankly responding to internal stimuli although she denies AVH. Patient's roommate has a one-to-one sitter, and sitter relates that the patient has been responding to internal stimuli more or less all day. Patient is negativistic and minimizes psychiatric symptomatology. She essentially denies the psychiatric ROS, answering "I'm alright" to most of my questions. She seems fairly paranoid. Psychiatric interview is limited because of patient's degree of psychiatric symptomatology. I am unable to obtain much in the way of meaningful past psychiatric, family, chemical dependency or social history for the same reason. No physical complaints. Review of Systems unobtainable due to mental condition PMFSH - History History Provided By: Patient, Medical Record - Medical / Surgical Hx Neg / Unobtainable Medical Problems Denied: Yes - Medical History Medical History: Medical History (Last Reviewed 03/26/18 @ 18:17 by MARTIN Duran) Patient denies medical problems - Surgical History Surgical History: Surgical History (Last Reviewed 03/26/18 @ 18:17 by MARTIN Duran) No history of previous surgery - Family History Family History: Family History (Last Reviewed 03/26/18 @ 18:17 by MARTIN Duran) Other Family history unobtainable due to patient's condition - Tobacco History Second Hand Smoke Exposure: No Tobacco Use In Past 30 Days: No (its been a long time ago) Smoking Status: Former smoker Tobacco Type: Cigarettes - Alcohol History How Often Do You Have a Drink Containing Alcohol: Never - Substance Use History Substance History: Unable to Obtain - Immunization History Hx Influenza Vaccine This Season: Yes Medications and Allergies Active Medications: Active Medications Al Hydrox/Mg Hydrox/Simethicone (Mag-Al Plus Susp Liq) 30 ml PO Q6H PRN PRN Reason: DYSPEPSIA Al Hydroxide/Mg Hydroxide (Milk Of Magnesia Liq) 30 ml PO Q12H PRN PRN Reason: Mild Constipation Bisacodyl (Dulcolax Supp) 10 mg RECTAL DAILY PRN PRN Reason: SEVERE CONSITIPATION Dextrose (D50w Syringe) 50 ml IV.PUSH UNSCH PRN PRN Reason: PER HYPOGLYCEMIA PROTOCOL Furosemide (Lasix) 20 mg PO DAILY [facility] Last Admin: 03/27/18 18:24 Dose: 20 mg Glucagon (Glucagon Inj) 1 mg IV.PUSH ONCE PRN PRN Reason: PER HYPOGLYCEMIA PROTOCOL Insulin Aspart (Novolog Insulin Correctional Sugar Inj) 5 unit SQ [facility]AC [facility] Last Admin: 03/27/18 18:35 Dose: Not Given Insulin Aspart (Novolog Insulin Correctional Sugar Inj) 0 unit SQ [facility]; Protocol Last Admin: 03/27/18 17:30 Dose: Not Given Insulin Detemir (Levemir Inj) 12 unit SQ [facility] Last Admin: 03/27/18 20:34 Dose: Not Given Lactulose (Lactulose Liq) 30 ml PO DAILY PRN PRN Reason: SEVERE CONSITIPATION Lisinopril (Prinivil) 20 mg PO BID [facility] Last Admin: 03/27/18 20:29 Dose: Not Given Senna/Docusate Sodium (Yael-Colace) 1 tab PO BID [facility] Last Admin: 03/27/18 20:29 Dose: Not Given Sennosides (Senokot) 17.2 mg PO Q12H PRN PRN Reason: Moderate Constipation Allergies Allergy/AdvReac Type Severity Reaction Status Date / Time No Known Allergies Allergy Verified 03/23/18 17:28 Exam Vital signs: Vital Signs 03/28/18 05:51 Temperature 97.3 F L Pulse Rate 91 H Respiratory Rate 18 Blood Pressure 174/74 H Pulse Oximetry 97 Intake & Output 03/27/18 03/28/18 03/28/18 18:59 06:59 18:59 Intake Total 960 / 960 0 / 0 Balance 960 / 960 0 / 0 Weight 102.1 kg Intake: Oral 960 / 960 0 / 0 Oral Supplement 0 / 0 Narrative: Physical examination completed by hospitalist franchise business consultant. On my examination today, the patient appears to be in no acute physical distress. No motor abnormalities noted. Labs and vital signs reviewed: Laboratory Tests 03/23/18 03/23/18 03/28/18 17:30 20:29 07:48 WBC 10.2 Hgb 10.9 L Plt Count 459 H Sodium Potassium Chloride Carbon Dioxide Anion Gap Creatinine Estimated GFR Random Glucose AST ALT Alkaline Phosphatase Urine Opiates Screen Neg Ur Barbiturates Screen Neg Ur Amphetamines Screen Neg U Benzodiazepines Scrn Neg Urine Cocaine Screen Neg U Cannabinoids Screen Neg Serum Alcohol Less than 3 03/28/18 07:48 WBC Hgb Plt Count Sodium 142 Potassium 3.4 L Chloride 106 Carbon Dioxide 24.6 Anion Gap 11 Creatinine 0.83 Estimated GFR 85 L Random Glucose 180 H AST 25 ALT 21 Alkaline Phosphatase 97 Urine Opiates Screen Ur Barbiturates Screen Ur Amphetamines Screen U Benzodiazepines Scrn Urine Cocaine Screen U Cannabinoids Screen Serum Alcohol Urinalysis results reviewed. Mental Status Examination Appearance: Disheveled Consciousness: Alert Orientation: Person Speech: Hesitant Language: Adequate Fund of Knowledge: Inadequate Attention and Concentration: Inadequate Memory: Impaired (On clinical exam) Mood: Other (Calm) Affect: Blunt Thought Process & Associations: Other (concrete) Thought Content: Hallucinations, Thought blocking Hallucination Type: Auditory (Internally stimulated) Delusion Type: Paranoid Suicidal Ideation: No Suicidal Plan: No Suicidal Intention: No Homicidal Ideation: No Homicidal Plan: No Homicidal Intention: No Insight: Poor Judgment: Poor Assessment and Plan - Assessment (1) Acute exacerbation of chronic schizophrenia Code(s): F20.9 - Schizophrenia, unspecified Status: Acute - Plan Plan: Given the circumstances of the patient's presentation here, and her presentation on my examination today, I concur with Dr. Arreaga that the patient meets criteria for involuntary psychiatric hospitalization under the Pak act. I have completed second opinion paperwork. Further care as per Dr. Arreaga. Thank you very much for this consultation. Signing off. Justification for Continued Inpatient Stay: Per Dr. Arreaga
[2018-03-28] MEDS: Senna/Docusate Sodium 8.6/50 MG Tablet PO SCH ×2 (13:51→23:54)
[2018-03-28] MEDS: Insulin NovoLOG Aspart Correctional Sugar Inj SQ SCH ×6 (13:51→23:52)
[2018-03-28] MEDS: Furosemide 20 MG Tablet PO SCH (13:51)
[2018-03-28] MEDS: Lisinopril 20 MG Tablet PO SCH ×2 (13:52→23:55)
[2018-03-28] MEDS ORDERED: LORazepam 1 MG Tablet PO PRN (15:34)
--- NOTE | 2018-03-28 16:20 | P.PNPSY ---
Subjective Remarks: Patient seen for follow, chart reviewed. Discussion nursing staff reported the patient refusing medications, malodorous, poor hygiene, refusing to eat, continues to be noted to be responding to internal stimuli and talking to self. Patient was found sitting hospital bed talking to self, laughing inappropriately and initially refusing to engage in interview stating "I do not want to talk to you". Patient was encouraged to eat her meals and was provided to tray in front of her stated that this food was not hers but then was shown receipt of her tray that had her name on it and patient began to eat some of the food on the trying but did not have adequate p.o. intake. Patient continues to repeat "I am alright" and when asked if patient was compliant with medications she states she had a really taking her medications but had refused. Collateral contact, Maritza EFE (sister), was contacted via telephone - [phone]. Patient's sister states that patient has been living with the uncle for many years and feels the patient had been off her medications for at least 2 months and states that patient was following up at [facility] but was not familiar with her current treatment. She mentions that she recently noticed patient staying out more and talking to herself at least 2-3 weeks ago when she came to visit. Patient sister states that she will be patient's healthcare surrogate during this admission which medications were reviewed with her specifically because of pain which patient had been recently taking prior to her admission and would need to be restarted along with weekly blood draws for monitoring which she understood and agreed. She also mentions that the patient has had 1 child who had via overdose but did not state how long ago for the age of the child. She mentions that the patient has had multiple previous psychiatric admissions but denies patient having any previous suicide attempts. Review of Systems All other systems reviewed negative except as stated in HPI Mental Status Examination Appearance: Disheveled, Malodorous Consciousness: Alert Orientation: Person Speech: Hesitant Language: Adequate Fund of Knowledge: Inadequate Attention and Concentration: Inadequate Memory: Impaired (On clinical exam) Mood: Other ("I am alright") Affect: Labile Thought Process & Associations: Disorganized Thought Content: Hallucinations, Thought blocking Hallucination Type: Auditory (Internally stimulated) Delusion Type: Paranoid Suicidal Ideation: No Suicidal Plan: No Suicidal Intention: No Homicidal Ideation: No Homicidal Plan: No Homicidal Intention: No Insight: Poor Judgment: Poor Assessment and Plan - Assessment (1) Acute exacerbation of chronic schizophrenia Code(s): F20.9 - Schizophrenia, unspecified Status: Acute - Plan Plan: Patient this time continues with acute psychosis, continues to require encouragement to have p.o. intake as well as to comply her medications and continues to refuse at this time. Collateral information was obtained through telephone with patient's sister who will serve as patient's healthcare surrogate and agreed to restarting clozapine as this medication patient had been on in the past. Discussion of having Haldol IM as an alternative if patient refuses was also reviewed which she agreed. Patient was registered through the clozapine [facility] registry with registration number [id number], recent CBC done today with an absolute neutrophil count of 7200. We will start clozapine 50 mg p.o. at bedtime with upper titration for psychosis. Haldol 5 mg IM BID only if patient refuses clozapine p.o. dose. EKG ordered. Hospitalist input appreciated. We will continue recommendations as per prior medical team for chronic medical illnesses. We will continue to monitor mood and behavior. Discharge planning a progress. Justification for Continued Inpatient Stay: At risk of further decompensation a lower level of care.
[2018-03-28 17:40] LABS: Hemoglobin A1c 14.3 % (4.3-6.0)
[2018-03-28] MEDS ORDERED: Haloperidol Inj 5 MG/ML Ampul ONE (18:41)
[2018-03-28] MEDS: Insulin Detemir Inj 1,000 UNIT/10 ML Vial SQ SCH (23:54)
[2018-03-28] MEDS: Haloperidol Inj 5 MG/ML Ampul IM SCH (23:54)
[2018-03-29] MEDS: Insulin NovoLOG Aspart Correctional Sugar Inj SQ SCH ×7 (07:45→21:16)
[2018-03-29] MEDS: Haloperidol Inj 5 MG/ML Ampul IM SCH ×2 (08:16→21:15)
[2018-03-29] MEDS: Lisinopril 20 MG Tablet PO SCH ×2 (08:16→21:15)
[2018-03-29] MEDS: Senna/Docusate Sodium 8.6/50 MG Tablet PO SCH ×2 (08:16→21:14)
[2018-03-29] MEDS: Furosemide 20 MG Tablet PO SCH (08:17)
--- NOTE | 2018-03-29 09:59 | P.PN ---
Subjective Interval history: Follow-up psychosis, hypertension, diabetes. Patient seen and examined, lying in bed comfortably in no apparent distress. Patient did take a shower today. Denies any acute events. She appears to be much improved, did take her medications this morning. Is pleasant. No active hallucinations noted. Denies any acute complaints. Physical Exam Vital signs: Vital Signs 03/29/18 06:00 Temperature 97.6 F Pulse Rate 87 Respiratory Rate 17 Blood Pressure 188/86 H Pulse Oximetry 96 Intake & Output 03/28/18 03/29/18 03/29/18 18:59 06:59 18:59 Intake Total 240 / 240 0 / 0 120 / 120 Balance 240 / 240 0 / 0 120 / 120 Intake: Oral 240 / 240 0 / 0 120 / 120 Other: # Voids 2 0 Narrative: GENERAL: Well-nourished, well-developed adult female in no obvious distress; slightly disheveled appearing. SKIN: Warm and dry. HEAD: Atraumatic. Normocephalic. CARDIOVASCULAR: Regular rate and rhythm. RESPIRATORY: No accessory muscle use. Clear to auscultation. Breath sounds equal bilaterally. GASTROINTESTINAL: Abdomen soft, non-tender, non- distended. Positive bowel sounds. MUSCULOSKELETAL: Extremities without clubbing or cyanosis. Bilateral trace ankle edema. No obvious deformities. NEUROLOGICAL: Awake and alert. No obvious cranial nerve deficits. Motor grossly within normal limits. Normal speech. PSYCHIATRIC:insight and judgment poor. Results - Labs CBC & Chem 7: 03/28/18 07:48 03/28/18 07:48 Laboratory Results - last 24 hr 03/28/18 03/29/18 07:48 08:02 POC Glucose 206 H Hemoglobin A1c 14.3 H Assessment and Plan - Assessment (1) Hypertension Code(s): I10 - Essential (primary) hypertension Status: Chronic (2) Unspecified psychosis Code(s): F29 - Unspecified psychosis not due to a substance or known physiological condition Status: Acute (3) DM (diabetes mellitus) Code(s): E11.9 - Type 2 diabetes mellitus without complications Status: Chronic - Plan Patient is a 57-year-old female with past medical history of diabetes and hypertension who is admitted for confusion and psychiatric disturbance. She was recently hospitalized under Pak act after being found wandering the streets confused and disoriented. Upon admission to the hospital she was found to be in DKA and to have a UTI. This has resolved and she is now being managed by psychiatry. she is a very poor historian. Psychosis -Managed by psychiatryprimary. DM -Sliding-scale insulin as needed, follow blood sugar trends. -Diabetic diet Hypertension -Lisinopril 20 mg -Blood pressures very poorly controlled. Systolic blood pressure in the 180s. -Patient did take her scheduled medications this morning. -Follow-up blood pressure trends. Edema -Continue Lasix p.o. daily. Monitor electrolytes. DVT prophylaxis: Patient is ambulatory Discussed with: Patient and nurse.
--- NOTE | 2018-03-29 12:56 | P.PNPSY ---
Subjective Remarks: Patient seen for follow, chart reviewed. Discussion nursing staff reported the patient had receive ETO yesterday due to agitation. Patient was found sitting hospital bed noted B, cooperative. Patient states that she is feeling "alright " stating that she is feeling fine denying any auditory hallucinations does not recall episode of agitation yesterday. Patient states that she slept well, and agrees to take medications and compliant with treatment. Patient continued to be noted to be internally preoccupied during interview and disorganized. Review of Systems All other systems reviewed negative except as stated in HPI Mental Status Examination Appearance: Disheveled, Malodorous Consciousness: Alert Orientation: Person Speech: Hesitant Language: Adequate Fund of Knowledge: Inadequate Attention and Concentration: Inadequate Memory: Impaired (On clinical exam) Mood: Other ("I am alright") Affect: Labile Thought Process & Associations: Disorganized Thought Content: Hallucinations, Thought blocking Hallucination Type: Auditory (Internally stimulated) Delusion Type: Paranoid Suicidal Ideation: No Suicidal Plan: No Suicidal Intention: No Homicidal Ideation: No Homicidal Plan: No Homicidal Intention: No Insight: Poor Judgment: Poor Assessment and Plan - Assessment (1) Acute exacerbation of chronic schizophrenia Code(s): F20.9 - Schizophrenia, unspecified Status: Acute - Plan Plan: Patient this time continues with internal preoccupation and responding to internal stimuli. Patient refuse clozapine last evening but did receive ETO of Haldol 5 mg IM. Patient this morning again refused medications and did receive Haldol 5 mg IM and later agreed to her morning medications. We will continue to attempt to have patient start clozapine at night but in the interim we will continue with Haldol 5 mg IM if patient refuses medications. We will continue to monitor mood and behavior. Discharge planning in progress. Justification for Continued Inpatient Stay: At risk for further decompensation if at lower level of care
[2018-03-29] MEDS: Insulin Detemir Inj 1,000 UNIT/10 ML Vial SQ SCH (21:14)
--- NOTE | 2018-03-30 09:48 | P.PN ---
Subjective Interval history: Follow-up psychosis, hypertension, diabetes. Patient seen and examined, lying in bed sleeping. Awakens to voice. Is calm today and pleasant does not appear to be hallucinating. Refused blood pressure medicines last evening. RN to attempt this morning. Blood pressure is elevated probably secondary to refusing her medications. Physical Exam Vital signs: Vital Signs 03/30/18 06:10 Temperature 98.4 F Pulse Rate 100 H Respiratory Rate 18 Blood Pressure 164/72 H Pulse Oximetry 97 Intake & Output 03/29/18 03/30/18 03/30/18 18:59 06:59 18:59 Intake Total 360 / 360 460 / 460 Balance 360 / 360 460 / 460 Intake: Oral 360 / 360 360 / 360 Oral Supplement 100 / 100 Other: # Voids 1 # Bowel Movements 0 Narrative: GENERAL: Well-nourished, well-developed adult female in no obvious distress; HEAD: Atraumatic. Normocephalic. CARDIOVASCULAR: Regular rate and rhythm. RESPIRATORY: No accessory muscle use. Clear to auscultation. Breath sounds equal bilaterally. GASTROINTESTINAL: Abdomen soft, non-tender, non- distended. Positive bowel sounds. MUSCULOSKELETAL: Extremities without clubbing or cyanosis. Bilateral trace ankle edema. No obvious deformities. NEUROLOGICAL: Awake and alert. No obvious cranial nerve deficits. Motor grossly within normal limits. Normal speech. PSYCHIATRIC:insight and judgment poor. Results - Labs CBC & Chem 7: 03/28/18 07:48 03/28/18 07:48 Assessment and Plan - Assessment (1) Hypertension Code(s): I10 - Essential (primary) hypertension Status: Chronic (2) Unspecified psychosis Code(s): F29 - Unspecified psychosis not due to a substance or known physiological condition Status: Acute (3) DM (diabetes mellitus) Code(s): E11.9 - Type 2 diabetes mellitus without complications Status: Chronic - Plan Patient is a 57-year-old female with past medical history of diabetes and hypertension who is admitted for confusion and psychiatric disturbance. She was recently hospitalized under Pak act after being found wandering the streets confused and disoriented. Upon admission to the hospital she was found to be in DKA and to have a UTI. This has resolved and she is now being managed by psychiatry. she is a very poor historian. Psychosis -Managed by psychiatryprimary. DM -Sliding-scale insulin as needed, follow blood sugar trends. -Diabetic diet -Patient has been refusing Accu-Cheks as well as coverage. Hypertension -Lisinopril 20 mg -Blood pressure did improve when patient was compliant with her medications. Although last evening she did not take her scheduled lisinopril. Blood pressure elevated overnight. -RN to encourage patient to take her scheduled medications. -Follow-up blood pressure trends. Edema -Continue Lasix p.o. daily. Monitor electrolytes. DVT prophylaxis: Patient is ambulatory Discussed with: Patient and nurse.
--- NOTE | 2018-03-30 15:26 | P.PNPSY ---
Subjective Remarks: Patient seen for follow-up, chart reviewed. Discussion with nursing staff reported that the patient to clozapine last night, and compliant with the rest of medications but refusing Accu-Cheks. Patient was found sitting hospital bed noted be somewhat somnolent with limited cooperation with during interview. Patient reports her mood has been "fine" reports having slept last evening denying any perceptional services. Patient would not elaborate further and minimal interaction today. Review of Systems All other systems reviewed negative except as stated in HPI Mental Status Examination Appearance: Disheveled, Malodorous Consciousness: Alert Orientation: Person Speech: Hesitant Language: Adequate Fund of Knowledge: Inadequate Attention and Concentration: Inadequate Memory: Impaired (On clinical exam) Mood: Other ("fine") Affect: Blunt Thought Process & Associations: Disorganized Thought Content: Hallucinations, Thought blocking Hallucination Type: Auditory (Internally stimulated) Delusion Type: Paranoid Suicidal Ideation: No Suicidal Plan: No Suicidal Intention: No Homicidal Ideation: No Homicidal Plan: No Homicidal Intention: No Insight: Poor Judgment: Poor Assessment and Plan - Assessment (1) Acute exacerbation of chronic schizophrenia Code(s): F20.9 - Schizophrenia, unspecified Status: Acute - Plan Plan: Patient continues with internal preoccupation, thought blocking, although no aggressive behavior recently. Patient has been compliant with treatment and will continue to titrate clozapine to 100 mg p.o. at bedtime with upper titration for psychosis. Continue rest of medications. Continue to monitor mood and behavior. Discharge planning in progress. Justification for Continued Inpatient Stay: At risk for further decompensation if at lower level of care.
[2018-03-30] MEDS: Lisinopril 20 MG Tablet PO SCH ×2 (18:56→21:00)
[2018-03-30] MEDS: Furosemide 20 MG Tablet PO SCH (18:56)
[2018-03-30] MEDS: Senna/Docusate Sodium 8.6/50 MG Tablet PO SCH ×2 (18:56→21:00)
[2018-03-30] MEDS: Insulin NovoLOG Aspart Correctional Sugar Inj SQ SCH ×4 (18:56→21:00)
[2018-03-30] MEDS: Haloperidol Inj 5 MG/ML Ampul IM SCH ×2 (18:56→21:00)
[2018-03-31] MEDS: Insulin Detemir Inj 1,000 UNIT/10 ML Vial SQ SCH ×2 (01:58→23:55)
[2018-03-31] MEDS: Insulin NovoLOG Aspart Correctional Sugar Inj SQ SCH ×6 (08:00→17:44)
--- NOTE | 2018-03-31 08:25 | P.PN ---
Subjective Interval history: Follow-up visit uncontrolled hypertension, uncontrolled diabetes, noncompliant patient with paranoia. Patient seen and examined today. Sitting up in chair eating her breakfast. Reports she has been compliant with medication. However , nursing states that patient keeps on refusing insulin injections. Patient also has tendency to refuse BP medications. Patient appears with symptoms of paranoia, staring prolonged period of time and calculating answers and movement. Denies pain and discomfort. Denies SOB/ dyspnea. Denies chest pain , palpitations, headaches, dizziness. Denies fevers, chills, n/v/d. Denies dysuria. Physical Exam Vital signs: Vital Signs 03/31/18 06:00 Temperature 97.8 F Pulse Rate 95 H Respiratory Rate 16 Blood Pressure 157/71 H Pulse Oximetry 98 Intake & Output 03/30/18 03/31/18 03/31/18 18:59 06:59 18:59 Intake Total 1380 / 1380 840 / 840 Balance 1380 / 1380 840 / 840 Intake: Oral 1380 / 1380 840 / 840 Other: # Voids 1 Narrative: GENERAL: This is a well-nourished, well-developed patient, in no apparent distress. SKIN: Warm and dry HEENT: Normocephalic. Pupils equal round and reactive. Nose without bleeding. Airway patent. NECK: Trachea midline. CARDIOVASCULAR: Regular rate and rhythm without murmurs, gallops, or rubs. RESPIRATORY: Clear to auscultation. Breath sounds equal bilaterally. No wheezes , rales, or rhonchi. GASTROINTESTINAL: Abdomen soft, non-tender, nondistended. Bowel Sounds normoactive x4. MUSCULOSKELETAL: Extremities without clubbing, cyanosis. Bilateral lower extremity trace edema. NEUROLOGICAL: Awake and alert. No focal neuro deficit. Moves all extremities. Normal speech. Results - Labs CBC & Chem 7: 03/28/18 07:48 03/28/18 07:48 Laboratory Results - last 24 hr 03/30/18 03/30/18 17:01 20:45 POC Glucose 181 H 160 H Assessment and Plan - Assessment (1) Hypertension Code(s): I10 - Essential (primary) hypertension Status: Chronic (2) Unspecified psychosis Code(s): F29 - Unspecified psychosis not due to a substance or known physiological condition Status: Acute (3) DM (diabetes mellitus) Code(s): E11.9 - Type 2 diabetes mellitus without complications Status: Chronic - Plan Patient is a 57-year-old female with past medical history of diabetes and hypertension who is admitted for confusion and psychiatric disturbance. She was recently hospitalized under Pak act after being found wandering the streets confused and disoriented. Upon admission to the hospital she was found to be in DKA and to have a UTI. This has resolved and she is now being managed by psychiatry. she is a very poor historian. Psychosis, paranoia -Managed by psychiatryprimary. DM 2, uncontrolled, noncompliant -Sliding-scale insulin as needed, follow blood sugar trends. -Diabetic diet -Patient has been refusing Accu-Cheks as well as coverage. -Currently on Levemir, prandial insulin. Hemoglobin A1c 14.3 Hypertension, uncontrolled, noncompliant -Lisinopril 20 mg BID, Lasix 20 mg daily, start Procardia XL 60 mg daily, low dose BB -We will add clonidine PRN -Follow-up blood pressure trends. Noncompliant with meds. Edema -Continue Lasix p.o. daily. Monitor electrolytes. DVT prophylaxis: Patient is ambulatory Code Status: Full Code Discussed Condition With: Patient, nursing Discharge Planning: DC disposition by psychiatry
[2018-03-31] MEDS: Lisinopril 20 MG Tablet PO SCH ×2 (08:35→21:02)
[2018-03-31] MEDS: Haloperidol Inj 5 MG/ML Ampul IM SCH ×2 (08:35→23:54)
[2018-03-31] MEDS: Senna/Docusate Sodium 8.6/50 MG Tablet PO SCH ×2 (08:35→21:02)
[2018-03-31] MEDS: Furosemide 20 MG Tablet PO SCH (08:35)
--- NOTE | 2018-03-31 11:22 | P.PNPSY ---
Subjective Remarks: Reviewed electronic medical records and discussed case with staff. Follow-up was conducted in patient's room. Patient's nurse reports that she has been "very paranoid". They had to administer her Haldol IM. She continues to refuse insulin. She did not eat her breakfast. Found patient sleeping in her bed. Her demeanor is irritable. Takes multiple repetition of questions for her to answer. When asked how she slept she responds, "I slept". She does state that her appetite's been good. Beyond that she refuses to participate in a discussion. Mental Status Examination Appearance: Disheveled, Malodorous Consciousness: Alert Orientation: Person Speech: Hesitant Language: Adequate Fund of Knowledge: Inadequate Attention and Concentration: Inadequate Memory: Impaired (On clinical exam) Mood: Other ("fine") Affect: Blunt Thought Process & Associations: Disorganized Thought Content: Hallucinations, Thought blocking Hallucination Type: Auditory (Internally stimulated) Delusion Type: Paranoid Suicidal Ideation: No Suicidal Plan: No Suicidal Intention: No Homicidal Ideation: No Homicidal Plan: No Homicidal Intention: No Insight: Poor Judgment: Poor Assessment and Plan - Assessment (1) Acute exacerbation of chronic schizophrenia Code(s): F20.9 - Schizophrenia, unspecified Status: Acute - Plan Plan: Patient will be reevaluated Tuesday by the attending psychiatrist. Continue with current treatment plan. Justification for Continued Inpatient Stay: Moving this patient to a less restrictive environment would likely result in decompensation.
[2018-03-31] MEDS: Metoprolol Tartrate 25 MG Tablet PO SCH (21:02)
[2018-04-01 06:22] LABS: Calcium 8.4 mg/dL (8.5-10.1); Carbon Dioxide 28.3 meq/L (21.0-32.0); Potassium 3.1 meq/L (3.5-5.1)
--- NOTE | 2018-04-01 07:56 | P.PN ---
Subjective Interval history: Follow-up visit for noncompliance, paranoia, hypertension and diabetes. Spoke with nurse reports patient continues to be very paranoid. Patient is seen sitting on the edge of the bed eating breakfast this morning. Reports that she is eating breakfast this does not want to be bothered, refuses physical exam. Discussed why I am here to see patient regarding her elevated blood pressure and diabetes. Patient states that she does not need anything and she does not take insulin for diabetes. Asking to be left alone and for me to leave. Nurse reports that patient continues to refuse insulin, has been compliant with BP medications from time to time. Physical Exam Vital signs: Vital Signs 04/01/18 06:00 Temperature 36.7 C Pulse Rate 99 H Respiratory Rate 18 Blood Pressure 164/83 H Pulse Oximetry 94 L Intake & Output 03/31/18 04/01/18 04/01/18 18:59 06:59 18:59 Intake Total 350 / 350 700 / 700 Balance 350 / 350 700 / 700 Intake: Oral 350 / 350 600 / 600 Oral Supplement 100 / 100 Other: # Voids 3 # Bowel Movements 1 Narrative: Exam limited GENERAL: This is a well-nourished, well-developed patient, in no apparent distress eating breakfast on the side of the bed. HEENT: Normocephalic. Pupils equal, airway patent. NECK: Trachea midline. RESPIRATORY: No respiratory distress noted MUSCULOSKELETAL: Extremities without clubbing, cyanosis. Moving upper and lower extremities spontaneously. NEUROLOGICAL: Awake and alert.Normal speech. Results - Labs CBC & Chem 7: 03/28/18 07:48 04/01/18 05:42 Laboratory Results - last 24 hr 03/31/18 04/01/18 04/01/18 20:13 05:42 05:57 Sodium 141 Potassium 3.1 L Chloride 104 Carbon Dioxide 28.3 Anion Gap 9 BUN 8 Creatinine 0.81 Estimated GFR 88 L POC Glucose 284 H 201 H Random Glucose 195 H Calcium 8.4 L Assessment and Plan - Assessment (1) Hypertension Code(s): I10 - Essential (primary) hypertension Status: Chronic (2) Unspecified psychosis Code(s): F29 - Unspecified psychosis not due to a substance or known physiological condition Status: Acute (3) DM (diabetes mellitus) Code(s): E11.9 - Type 2 diabetes mellitus without complications Status: Chronic - Plan Patient is a 57-year-old female with past medical history of diabetes and hypertension who is admitted for confusion and psychiatric disturbance. She was recently hospitalized under [facility] act after being found wandering the streets confused and disoriented. Upon admission to the hospital she was found to be in DKA and to have a UTI. This has resolved and she is now being managed by psychiatry. she is a very poor historian. Psychosis, paranoia -Managed by psychiatryprimary. DM 2, uncontrolled, noncompliant Hemoglobin A1c 14.3 -Sliding-scale insulin as needed, blood sugars in the past 24 hours ranging from 284-201 -Diabetic diet -Patient has been refusing Accu-Cheks as well as coverage. -Currently on Levemir, prandial insulin, refusing. Hypertension, uncontrolled, noncompliant -Lisinopril 20 mg BID, Lasix 20 mg daily, Procardia XL 30 mg daily, low dose BB (patient refused) -We will add clonidine PRN -Follow-up blood pressure trends. Noncompliant with meds. Edema -Continue Lasix p.o. daily. Monitor electrolytes. Hypokalemia -Potassium level this morning 3.1, will replace with 40 meq's p.o. and recheck tomorrow. -Scheduled to meq's daily along with Lasix and follow electrolytes. DVT prophylaxis: Patient is ambulatory Discussed Condition With: Discussed with patient and RN, patient refused exam and further discussion.
[2018-04-01] MEDS: Senna/Docusate Sodium 8.6/50 MG Tablet PO SCH ×2 (08:37→20:36)
[2018-04-01] MEDS: Lisinopril 20 MG Tablet PO SCH ×2 (08:37→20:36)
[2018-04-01] MEDS: Furosemide 20 MG Tablet PO SCH (08:38)
[2018-04-01] MEDS: Metoprolol Tartrate 25 MG Tablet PO SCH ×2 (08:38→20:36)
[2018-04-01] MEDS: Insulin NovoLOG Aspart Correctional Sugar Inj SQ SCH ×7 (08:39→16:31)
[2018-04-01] MEDS: Haloperidol Inj 5 MG/ML Ampul IM SCH ×2 (08:40→20:37)
--- NOTE | 2018-04-01 18:19 | P.PNPSY ---
Subjective Remarks: Patient was seen and case discussed with nursing. Patient has argumentative during the interview. She has poor insight into her mental health and admission. She was seen talking to herself per nursing. She has been seclusive and showing signs of internal stimuli. Compliant with her medications and has not had any outbursts Mental Status Examination Appearance: Disheveled, Malodorous Consciousness: Alert Orientation: Person, Place Speech: Hesitant Language: Adequate Fund of Knowledge: Inadequate Attention and Concentration: Easily distracted Memory: Impaired (On clinical exam) Mood: Other ("fine") Affect: Blunt Thought Process & Associations: Disorganized Thought Content: Hallucinations, Thought blocking Hallucination Type: Auditory (Internally stimulated) Delusion Type: Paranoid Suicidal Ideation: No Suicidal Plan: No Suicidal Intention: No Homicidal Ideation: No Homicidal Plan: No Homicidal Intention: No Insight: Poor Judgment: Poor Assessment and Plan - Assessment (1) Acute exacerbation of chronic schizophrenia Code(s): F20.9 - Schizophrenia, unspecified Status: Acute - Plan Plan: Continue current treatment plan Justification for Continued Inpatient Stay: Patient would decompensate in a less restrictive setting
[2018-04-01] MEDS: Insulin Detemir Inj 1,000 UNIT/10 ML Vial SQ SCH (20:38)
--- NOTE | 2018-04-02 07:58 | P.PN ---
Subjective Interval history: Follow-up visit for HTN and DN. Patient is seen in bed, she sits up and acknowledges me, however after this she does not answer any questions and ask that I leave her room. Spoke with nurse who reports patient continues to be very paranoid and still refusing insulin as well as BP medications. Physical Exam Vital signs: Vital Signs 04/01/18 18:12 04/02/18 06:34 Temperature 36.4 C L 36.5 C Pulse Rate 102 H 93 H Respiratory Rate 20 16 Blood Pressure 164/82 H 150/75 H Pulse Oximetry 97 96 Intake & Output 04/01/18 04/02/18 04/02/18 18:59 06:59 18:59 Intake Total 720 / 720 Balance 720 / 720 Intake: Oral 720 / 720 Other: # Voids 1 Narrative: Exam limited GENERAL: This is a well-nourished, well-developed patient, in no apparent distress. HEENT: Normocephalic. Pupils equal, airway patent. NECK: Trachea midline. RESPIRATORY: No respiratory distress noted MUSCULOSKELETAL: Extremities without clubbing, cyanosis. Moving upper and lower extremities spontaneously. NEUROLOGICAL: Awake and alert.Normal speech. Results - Labs CBC & Chem 7: 03/28/18 07:48 04/01/18 05:42 Laboratory Results - last 24 hr 04/01/18 04/01/18 11:20 16:29 POC Glucose 251 H 181 H Assessment and Plan - Assessment (1) Hypertension Code(s): I10 - Essential (primary) hypertension Status: Chronic (2) Unspecified psychosis Code(s): F29 - Unspecified psychosis not due to a substance or known physiological condition Status: Acute (3) DM (diabetes mellitus) Code(s): E11.9 - Type 2 diabetes mellitus without complications Status: Chronic - Plan Patient is a 57-year-old female with past medical history of diabetes and hypertension who is admitted for confusion and psychiatric disturbance. She was recently hospitalized under [facility] act after being found wandering the streets confused and disoriented. Upon admission to the hospital she was found to be in DKA and to have a UTI. This has resolved and she is now being managed by psychiatry. she is a very poor historian. Psychosis, paranoia -Managed by psychiatryprimary. DM 2, uncontrolled, noncompliant Hemoglobin A1c 14.3 -Sliding-scale insulin as needed, blood sugars in 200's. -Diabetic diet -Patient has been refusing Accu-Cheks as well as coverage. -Currently on Levemir, prandial insulin, refusing. Hypertension, uncontrolled, noncompliant -Lisinopril 20 mg BID, Lasix 20 mg daily, Procardia XL 30 mg daily, low dose BB -We will add clonidine PRN -Follow-up blood pressure trends. Noncompliant with meds. Edema -Continue Lasix p.o. daily. Monitor electrolytes. Hypokalemia -Potassium 3.1, s/p 40 meq's p.o. Repeat yet to be drawn today. DVT prophylaxis: Patient is ambulatory Discussed Condition With: Discussed with RN.
[2018-04-02] MEDS: Metoprolol Tartrate 25 MG Tablet PO SCH ×2 (08:38→20:06)
[2018-04-02] MEDS: Furosemide 20 MG Tablet PO SCH (08:39)
[2018-04-02] MEDS: Potassium Chloride 10 MEQ ER Capsule PO SCH (08:39)
[2018-04-02] MEDS: Insulin NovoLOG Aspart Correctional Sugar Inj SQ SCH ×6 (08:39→16:26)
[2018-04-02] MEDS: Lisinopril 20 MG Tablet PO SCH ×2 (08:39→20:05)
[2018-04-02] MEDS: Senna/Docusate Sodium 8.6/50 MG Tablet PO SCH ×2 (08:40→20:06)
[2018-04-02] MEDS: Haloperidol Inj 5 MG/ML Ampul IM SCH (08:40)
--- NOTE | 2018-04-02 16:13 | P.PNPSY ---
Subjective Remarks: Patient was seen and case discussed with nursing. Patient remains minimally interactive with thought blocking during the interview. She has poor insight into her admission. He is likely responding to internal stimuli but denies any auditory or visual hallucinations. No delusions were elicited today. She has not had any outbursts. She is compliant with all of her medications except for her sliding scale insulin and blood pressure medications Mental Status Examination Appearance: Disheveled, Malodorous Consciousness: Alert Orientation: Person, Place Speech: Hesitant Language: Adequate Fund of Knowledge: Inadequate Attention and Concentration: Easily distracted Memory: Impaired (On clinical exam) Mood: Other ("fine") Affect: Blunt Thought Process & Associations: Disorganized Thought Content: Hallucinations, Thought blocking Hallucination Type: Auditory (Internally stimulated) Delusion Type: Paranoid Suicidal Ideation: No Suicidal Plan: No Suicidal Intention: No Homicidal Ideation: No Homicidal Plan: No Homicidal Intention: No Insight: Poor Judgment: Poor Assessment and Plan - Assessment (1) Acute exacerbation of chronic schizophrenia Code(s): F20.9 - Schizophrenia, unspecified Status: Acute - Plan Plan: Continue current treatment plan Justification for Continued Inpatient Stay: Patient would decompensate in a less restrictive setting
[2018-04-02] MEDS: Insulin Detemir Inj 1,000 UNIT/10 ML Vial SQ SCH (20:07)
--- NOTE | 2018-04-03 07:59 | P.PN ---
Subjective Interval history: Follow-up for HTN and DM, noncompliant with medications. Patient is seen and examined sitting on the side of her bed this morning. She denies any fevers, chills, N/V/D, headache, cough, or SOB. She voices no acute complaints. Nurse reports patient continues to refuse medications including insulin coverage for hyperglycemia. Physical Exam Vital signs: Vital Signs 04/02/18 18:00 04/03/18 06:13 Temperature 36.6 C 36.8 C Pulse Rate 102 H 102 H Respiratory Rate 20 20 Blood Pressure 152/75 H 152/75 H Pulse Oximetry 94 L 94 L Intake & Output 04/02/18 04/03/18 04/03/18 18:59 06:59 18:59 Intake Total 1680 / 1680 0 / 0 Balance 1680 / 1680 0 / 0 Intake: Oral 1680 / 1680 0 / 0 Other: # Voids 3 Narrative: GENERAL: AA female in no acute distress SKIN: Warm and dry. EYES: Pupils equal and round. CARDIOVASCULAR: Regular rate and rhythm. RESPIRATORY: No accessory muscle use. Clear to auscultation. Breath sounds equal bilaterally. GASTROINTESTINAL: Abdomen nondistended. MUSCULOSKELETAL: Extremities without clubbing, cyanosis, or edema. No obvious deformities. NEUROLOGICAL: Awake and alert. No obvious cranial nerve deficits. Motor grossly within normal limits. Normal speech. PSYCHIATRIC: Appears paranoid Results - Labs CBC & Chem 7: 03/28/18 07:48 04/03/18 11:37 Laboratory Results - last 24 hr 04/02/18 04/03/18 16:24 07:41 POC Glucose 229 H 199 H Assessment and Plan - Assessment (1) Hypertension Code(s): I10 - Essential (primary) hypertension Status: Chronic (2) Unspecified psychosis Code(s): F29 - Unspecified psychosis not due to a substance or known physiological condition Status: Acute (3) DM (diabetes mellitus) Code(s): E11.9 - Type 2 diabetes mellitus without complications Status: Chronic - Plan Patient is a 57-year-old female with past medical history of diabetes and hypertension who is admitted for confusion and psychiatric disturbance. She was recently hospitalized under [facility] act after being found wandering the streets confused and disoriented. Upon admission to the hospital she was found to be in DKA and to have a UTI. This has resolved and she is now being managed by psychiatry. she is a very poor historian. Psychosis, paranoia -Managed by psychiatryprimary. DM 2, uncontrolled, noncompliant Hemoglobin A1c 14.3 -Sliding-scale insulin as needed, blood sugars in 200's. -Diabetic diet -Patient has been refusing Accu-Cheks as well as coverage. -Currently on Levemir, prandial insulin, refusing. Hypertension, uncontrolled, noncompliant -Lisinopril 20 mg BID, Lasix 20 mg daily, Procardia XL 30 mg daily, low dose BB -We will add clonidine PRN -Follow-up blood pressure trends. Noncompliant with some some meds. Edema -Continue Lasix p.o. daily. Monitor electrolytes. Hypokalemia -resolved, BMP from 04/03 reviewed, stable. DVT prophylaxis: Patient is ambulatory Discussed Condition With: Patient, RN and .
[2018-04-03] MEDS: Senna/Docusate Sodium 8.6/50 MG Tablet PO SCH ×2 (08:26→22:33)
[2018-04-03] MEDS: Potassium Chloride 10 MEQ ER Capsule PO SCH (08:26)
[2018-04-03] MEDS: Metoprolol Tartrate 25 MG Tablet PO SCH ×2 (08:26→22:32)
[2018-04-03] MEDS: Furosemide 20 MG Tablet PO SCH (08:27)
[2018-04-03] MEDS: Haloperidol Inj 5 MG/ML Ampul IM SCH ×3 (08:28→22:32)
[2018-04-03] MEDS: Insulin NovoLOG Aspart Correctional Sugar Inj SQ SCH ×6 (08:30→21:00)
[2018-04-03 12:22] LABS: Potassium 3.6 meq/L (3.5-5.1)
[2018-04-03] MEDS: Lisinopril 20 MG Tablet PO SCH ×2 (12:48→22:33)
--- NOTE | 2018-04-03 16:31 | P.PNPSY ---
Subjective Remarks: Patient seen for follow, chart reviewed. Discussion nursing staff reported the patient continued to be paranoid, suspicious and seclusive to her room and refusing insulin and angry at times. Patient was found sitting hospital bed noted be less disheveled today stating that she is feeling "fine" noted with limited interaction with interview with no elaboration on answers to questions. Patient also noted to be somewhat irritable during interview as well with irritable affect. Patient states that her weekend went "alright" denying any physical meds at this time, reports eating and drinking well stating she takes her medications but refusing an insulin despite's education on the use of insulin here in the hospital patient continues to refuse this. Patient reports adequate bowel movement and that her mood has been "fine" denying any auditory or visual hallucinations. Patient agrees with continued titration of clozapine and aware that she will require continued weekly blood draws for CBC. Review of Systems All other systems reviewed negative except as stated in HPI Mental Status Examination Appearance: Appropriate Consciousness: Alert Orientation: Person, Place Speech: Hesitant Language: Adequate Fund of Knowledge: Inadequate Attention and Concentration: Easily distracted Memory: Impaired (On clinical exam) Mood: Other ("fine") Affect: Blunt Thought Process & Associations: Disorganized, Other ([place]) Thought Content: Hallucinations, Thought blocking Hallucination Type: Auditory (Internally stimulated although lessening) Delusion Type: Paranoid Suicidal Ideation: No Suicidal Plan: No Suicidal Intention: No Homicidal Ideation: No Homicidal Plan: No Homicidal Intention: No Insight: Poor Judgment: Poor Assessment and Plan - Assessment (1) Acute exacerbation of chronic schizophrenia Code(s): F20.9 - Schizophrenia, unspecified Status: Acute - Plan Plan: Patient appeared to have some improvement in hygiene and the longer malodorous, having more compliant with treatment other continues to be somewhat internally preoccupied but not noted to be responding to internal stimuli as much as initial presentation. Patient continues with irritability and some disorganization. We will continue to titrate clozapine to 150 mg p.o. at bedtime for psychosis, continue rest of medications. We will continue to monitor mood and behavior. Discharge planning in progress. Justification for Continued Inpatient Stay: At risk for further decompensation if at lower level of care
[2018-04-03] MEDS: Insulin Detemir Inj 1,000 UNIT/10 ML Vial SQ SCH (22:32)
[2018-04-04] MEDS: Potassium Chloride 10 MEQ ER Capsule PO SCH (09:38)
[2018-04-04] MEDS: Senna/Docusate Sodium 8.6/50 MG Tablet PO SCH ×2 (09:39→22:26)
[2018-04-04] MEDS: Metoprolol Tartrate 25 MG Tablet PO SCH ×2 (09:39→22:26)
[2018-04-04] MEDS: Lisinopril 20 MG Tablet PO SCH ×2 (09:39→22:26)
[2018-04-04] MEDS: Insulin NovoLOG Aspart Correctional Sugar Inj SQ SCH ×7 (09:40→21:43)
[2018-04-04] MEDS: Furosemide 20 MG Tablet PO SCH (09:44)
--- NOTE | 2018-04-04 11:47 | P.PN ---
Subjective Interval history: Patient is seen sitting in room. She has recently showered and is quite pleasant. She tells me that is everything is fine and she has no concerns. Confirms that she has been refusing her insulin and lab work because she does not want any needles near her. Continues to deny being a diabetic. Does reluctantly agree to take metformin p.o. denies any chest pain or shortness of breath. Denies any nausea vomiting or diarrhea. Physical Exam Vital signs: Vital Signs 04/04/18 06:17 Temperature 98.5 F Pulse Rate 109 H Respiratory Rate 18 Blood Pressure 140/65 Intake & Output 04/03/18 04/04/18 04/04/18 18:59 06:59 18:59 Intake Total 1440 / 1440 240 / 240 Balance 1440 / 1440 240 / 240 Intake: Oral 1440 / 1440 240 / 240 Oral Supplement 0 / 0 Other: # Voids 2 # Bowel Movements 0 Narrative: GENERAL: Well-nourished, well-developed adult female in no obvious distress. SKIN: Warm and dry. HEAD: Atraumatic. Normocephalic. CARDIOVASCULAR: Regular rate and rhythm. RESPIRATORY: No accessory muscle use. Clear to auscultation. Breath sounds equal bilaterally. GASTROINTESTINAL: Abdomen soft, non-tender, non-distended. Positive bowel sounds. MUSCULOSKELETAL: Extremities without clubbing, cyanosis, or edema. No obvious deformities. NEUROLOGICAL: Awake and alert. No obvious cranial nerve deficits. Motor grossly within normal limits. Normal speech. Results - Labs CBC & Chem 7: 03/28/18 07:48 04/03/18 11:37 Laboratory Results - last 24 hr 04/03/18 04/03/18 04/04/18 11:37 11:54 09:19 Sodium 140 Potassium 3.6 Chloride 103 Carbon Dioxide 28.0 Anion Gap 9 BUN 10 Creatinine 1.00 Estimated GFR 69 L POC Glucose 251 H 247 H Random Glucose 226 H Calcium 9.0 Assessment and Plan - Assessment (1) Hypertension Code(s): I10 - Essential (primary) hypertension Status: Chronic (2) Unspecified psychosis Code(s): F29 - Unspecified psychosis not due to a substance or known physiological condition Status: Acute (3) DM (diabetes mellitus) Code(s): E11.9 - Type 2 diabetes mellitus without complications Status: Chronic - Plan Patient is a 57-year-old female with past medical history of diabetes and hypertension who is admitted for confusion and psychiatric disturbance. She was recently hospitalized under [facility] act after being found wandering the streets confused and disoriented. Upon admission to the hospital she was found to be in DKA and to have a UTI. This has resolved and she is now being managed by psychiatry. she is a very poor historian. Psychosis -Managed by psychiatryprimary DM -Sliding-scale insulin -patient is refusing all insulin. Is taking p.o. so will add metformin-initially 500 twice daily, increased to 1000 BID if tolerating. Consider other oral medications if she continues to refuse insulin. -Diabetic diet Hypertension -Lisinopril 20 mg -Blood pressures moderately improved. Patient is somewhat resistant to taking medications per nursing. Edema -We will add Lasix p.o. daily. Monitor electrolytes; stable. DVT prophylaxis: Patient is ambulatory Discussed with: Patient and nurse
[2018-04-04] MEDS: Haloperidol Inj 5 MG/ML Ampul IM SCH (12:58)
--- NOTE | 2018-04-04 13:02 | P.PNPSY ---
Subjective Remarks: Patient seen for follow, chart reviewed. Discussion nursing staff reported patient continues to be seclusive, limited interactions and with continued irritability refusing Accu-Cheks as well as blood work. Patient was found lying hospital bed asleep was able to wake up to interact with interview today. Patient states that her mood has been "fine" reports having any physical complaints at this time denies any perceptional disturbances or delusions although at times it is continued to be noted to be internally preoccupied. Patient denies any SI or HI at this time. Discussion the patient's plan to return back home with her uncle was reviewed which patient states that she is not wanting to return back to her uncle's home despite having lived there over 30 years. Patient does not have a plan of where she will stay upon discharge and when attempted to explore possibilities of referral to an assisted living facility patient states that she did not want to speak about this at this time. Patient denies having spoken to any family members since her admission. Review of Systems All other systems reviewed negative except as stated in HPI Mental Status Examination Appearance: Appropriate Consciousness: Alert Orientation: Person, Place Speech: Hesitant Language: Adequate Fund of Knowledge: Inadequate Attention and Concentration: Easily distracted Memory: Impaired (On clinical exam) Mood: Other ("fine") Affect: Irritable (At times), Blunt Thought Process & Associations: Disorganized (Lessening), Other ([place]) Thought Content: Hallucinations (Denies but noted to be internally stimulated), Thought blocking (Lessening) Hallucination Type: Auditory (Internally stimulated although lessening) Delusion Type: Paranoid Suicidal Ideation: No Suicidal Plan: No Suicidal Intention: No Homicidal Ideation: No Homicidal Plan: No Homicidal Intention: No Insight: Poor Judgment: Poor Assessment and Plan - Assessment (1) Acute exacerbation of chronic schizophrenia Code(s): F20.9 - Schizophrenia, unspecified Status: Acute - Plan Plan: Patient continues with poor personal hygiene, thought blocking internally stimulated at times, irritability as well as some disorganization. We will attempt to have patient comply with lab work for weekly CBC monitoring this patient currently on clozapine. Will continue to titrate clozapine for psychosis to 200 mg p.o. at bedtime. We will continue to encourage patient to comply with rest of medications as well as Accu-Cheks. We will continue to monitor mood and behavior. Continue to encourage patient to maintain adequate personal hygiene and participate in groups and activities. Collateral information pending from family. Discharge planning in progress. Justification for Continued Inpatient Stay: At risk for further decompensation if at lower level of care.
[2018-04-04] MEDS: Insulin Detemir Inj 1,000 UNIT/10 ML Vial SQ SCH (22:26)
[2018-04-05] MEDS: Lisinopril 20 MG Tablet PO SCH ×2 (08:27→21:35)
[2018-04-05] MEDS: Potassium Chloride 10 MEQ ER Capsule PO SCH (08:27)
[2018-04-05] MEDS: Haloperidol Inj 5 MG/ML Ampul IM SCH ×2 (08:28→21:37)
[2018-04-05] MEDS: Metoprolol Tartrate 25 MG Tablet PO SCH ×2 (08:28→21:34)
[2018-04-05] MEDS: Furosemide 20 MG Tablet PO SCH (08:28)
[2018-04-05] MEDS: Senna/Docusate Sodium 8.6/50 MG Tablet PO SCH ×2 (08:28→21:34)
[2018-04-05] MEDS: Insulin NovoLOG Aspart Correctional Sugar Inj SQ SCH ×7 (08:28→21:33)
--- NOTE | 2018-04-05 10:15 | P.PN ---
Subjective Interval history: Patient is seen in room. Is very pleasant and tells me everything is fine. Continues to refuse insulin but tells me she is okay with the metformin. No GI upset. No fever or chills. No chest pain or shortness of breath. Physical Exam Vital signs: Vital Signs 04/04/18 18:32 04/05/18 06:07 Temperature 97.9 F 97.3 F L Pulse Rate 98 H 104 H Respiratory Rate 19 18 Blood Pressure 119/69 163/78 H Pulse Oximetry 96 96 Intake & Output 04/04/18 04/05/18 04/05/18 18:59 06:59 18:59 Intake Total 1440 / 1440 360 / 360 Balance 1440 / 1440 360 / 360 Intake: Oral 1440 / 1440 360 / 360 Other: # Voids 2 # Bowel Movements 0 Narrative: GENERAL: Well-nourished, well-developed adult female in no obvious distress. SKIN: Warm and dry. HEAD: Atraumatic. Normocephalic. CARDIOVASCULAR: Regular rate and rhythm. RESPIRATORY: No accessory muscle use. Clear to auscultation. Breath sounds equal bilaterally. GASTROINTESTINAL: Abdomen soft, non-tender, non-distended. Positive bowel sounds. MUSCULOSKELETAL: Extremities without clubbing, cyanosis, or edema. No obvious deformities. NEUROLOGICAL: Awake and alert. No obvious cranial nerve deficits. Results - Labs CBC & Chem 7: 03/28/18 07:48 04/03/18 11:37 Laboratory Results - last 24 hr 04/04/18 04/04/18 04/04/18 11:44 16:34 20:46 POC Glucose 234 H 223 H 128 H Assessment and Plan - Assessment (1) Hypertension Code(s): I10 - Essential (primary) hypertension Status: Chronic (2) Unspecified psychosis Code(s): F29 - Unspecified psychosis not due to a substance or known physiological condition Status: Acute (3) DM (diabetes mellitus) Code(s): E11.9 - Type 2 diabetes mellitus without complications Status: Chronic - Plan Patient is a 57-year-old female with past medical history of diabetes and hypertension who is admitted for confusion and psychiatric disturbance. She was recently hospitalized under [facility] after being found wandering the streets confused and disoriented. Upon admission to the hospital she was found to be in DKA and to have a UTI. This has resolved and she is now being managed by psychiatry. she is a very poor historian. Psychosis -Managed by psychiatryprimary DM -Sliding-scale insulin -patient is refusing all insulin. Is taking p.o. so will add metformin-initially 500 twice daily (04/04), increased to 1000 BID if tolerating. Consider other oral medications if she continues to refuse insulin. -Diabetic diet Hypertension -Lisinopril 20 mg -Blood pressures moderately improved. Patient is somewhat resistant to taking medications per nursing. Edema -Lasix + K p.o. daily. Monitor electrolytes; stable. DVT prophylaxis: Patient is ambulatory Discussed with: Patient and nurse
--- NOTE | 2018-04-05 16:46 | P.PNPSY ---
Subjective Remarks: Patient seen for follow, chart reviewed. Discussion nursing staff reported the patient continues with paranoia, suspicious of medications, compliant up to now but had refused lab work recently. Patient was found lying hospital bed noted B , cooperative. Continues to be superficially cooperative at times, slightly irritable but engaging. Patient states that she is feeling "fine" denying any perceptional services, reports eating and drinking well and has been compliant with medications. Patient was reminded of the importance of complying with lab work to be able to continue to dispense clozapine during hospitalization which she agreed. Patient did recall having been visited by "3 girls" but did not identify who the where and when reminded that 1 of them was her sister patient states "I do not know who they are". Patient continues to refuse to return back to [facility] residence upon discharge. Family meeting with patient's relatives including her twin sister had reported the patient is not at baseline , usually more affectionate but noted patient to be guarded and paranoid. They are considering in assisting in the possibility of patient being referred to an assisted living facility as patient had been refusing return back to formerly [facility] residence. Review of Systems All other systems reviewed negative except as stated in HPI Mental Status Examination Appearance: Appropriate Consciousness: Alert Orientation: Person, Place Speech: Hesitant Language: Adequate Fund of Knowledge: Inadequate Attention and Concentration: Easily distracted Memory: Impaired (On clinical exam) Mood: Other ("fine") Affect: Irritable (At times), Blunt Thought Process & Associations: Disorganized (Lessening), Other ([place]) Thought Content: Hallucinations (Denies but noted to be internally stimulated), Thought blocking (Lessening) Hallucination Type: Auditory (Internally stimulated although lessening) Delusion Type: Paranoid Suicidal Ideation: No Suicidal Plan: No Suicidal Intention: No Homicidal Ideation: No Homicidal Plan: No Homicidal Intention: No Insight: Poor Judgment: Poor Assessment and Plan - Assessment (1) Acute exacerbation of chronic schizophrenia Code(s): F20.9 - Schizophrenia, unspecified Status: Acute - Plan Plan: Patient this time continues with some disorganization, unable to recognize her family members during visiting, continues to be reluctant with Accu-Cheks and blood draws but continues to comply with treatment with encouragement. Patient continued with paranoia and hypervigilance. Patient not participating in groups. We will continue to titrate clozapine to 250 mg p.o. at bedtime for psychosis. Continue to monitor mood and behavior. Continue rest of medications. Discharge planning in progress. Justification for Continued Inpatient Stay: At risk for further decompensation at lower level of care.
[2018-04-05] MEDS: Insulin Detemir Inj 1,000 UNIT/10 ML Vial SQ SCH (21:34)
[2018-04-06] MEDS: Furosemide 20 MG Tablet PO SCH (08:21)
[2018-04-06] MEDS: Senna/Docusate Sodium 8.6/50 MG Tablet PO SCH ×2 (08:21→21:54)
[2018-04-06] MEDS: Potassium Chloride 10 MEQ ER Capsule PO SCH (08:21)
[2018-04-06] MEDS: Lisinopril 20 MG Tablet PO SCH ×2 (08:22→22:51)
[2018-04-06] MEDS: Metoprolol Tartrate 25 MG Tablet PO SCH ×2 (08:22→22:50)
[2018-04-06] MEDS: Haloperidol Inj 5 MG/ML Ampul IM SCH ×2 (08:25→22:16)
[2018-04-06] MEDS: Insulin NovoLOG Aspart Correctional Sugar Inj SQ SCH ×7 (08:25→21:54)
[2018-04-06 08:39] LABS: Baso % (Auto) 0.3 % (0.0-2.0); Eos % (Auto) 0.5 % (0.0-4.0); Hematocrit 33.6 % (35.0-46.0); Hemoglobin 10.9 gm/dL (11.6-15.3); Lymph # (Auto) 3.7 th/mm3 (1.0-4.8); Lymph % (Auto) 39.3 % (9.0-44.0); Mean Corpuscular HGB Conc 32.5 % (32.0-36.0); Mean Corpuscular Hemoglobin 26.6 pg (27.0-34.0); Mean Corpuscular Volume 81.8 fL (80.0-100.0); Mean Platelet Volume 7.1 fL (7.0-11.0); Mono # (Auto) 0.7 th/mm3 (0.0-0.9); Mono % (Auto) 6.9 % (0.0-8.0); Platelet Count 523 th/mm3 (150-450); Red Blood Count 4.11 mil/mm3 (4.00-5.30); Red Cell Distribution Width 14.2 % (11.6-17.2); White Blood Count 9.5 th/mm3 (4.0-11.0)
--- NOTE | 2018-04-06 11:20 | P.PN ---
Subjective Interval history: Patient is seen lying quietly on bed. Tells me that she feels fine. Responds to most questions is "fine". Tells me that she has had no nausea or vomiting and agrees to continue her metformin but still refuses insulin. Nursing reports no adverse events. Physical Exam Vital signs: Vital Signs 04/06/18 06:10 Temperature 97.3 F L Pulse Rate 100 H Respiratory Rate 18 Blood Pressure 107/67 Pulse Oximetry 97 Intake & Output 04/05/18 04/06/18 04/06/18 18:59 06:59 18:59 Other: # Voids 3 Narrative: GENERAL: Well-nourished, well-developed adult female in no obvious distress. SKIN: Warm and dry. HEAD: Atraumatic. Normocephalic. CARDIOVASCULAR: Regular rate and rhythm. RESPIRATORY: No accessory muscle use. Clear to auscultation. Breath sounds equal bilaterally. GASTROINTESTINAL: Abdomen soft, non-tender, non-distended. Positive bowel sounds. MUSCULOSKELETAL: Extremities without clubbing, cyanosis, or edema. No obvious deformities. NEUROLOGICAL: Awake and alert. No obvious cranial nerve deficits. Results - Labs CBC & Chem 7: 04/06/18 08:22 04/03/18 11:37 Laboratory Results - last 24 hr 04/05/18 04/06/18 04/06/18 16:22 06:00 08:22 WBC 9.5 RBC 4.11 Hgb 10.9 L Hct 33.6 L MCV 81.8 MCH 26.6 L MCHC 32.5 RDW 14.2 Plt Count 523 H MPV 7.1 Neut % (Auto) 53.0 Lymph % (Auto) 39.3 [place] % (Auto) 6.9 Eos % (Auto) 0.5 Baso % (Auto) 0.3 Neut # (Auto) 5.0 Lymph # (Auto) 3.7 [place] # (Auto) 0.7 Eos # (Auto) 0.0 Baso # (Auto) 0.0 WBC Differential . Differential Comment Auto diff final POC Glucose 263 H 188 H 04/06/18 11:15 WBC RBC Hgb Hct MCV MCH MCHC RDW Plt Count MPV Neut % (Auto) Lymph % (Auto) [place] % (Auto) Eos % (Auto) Baso % (Auto) Neut # (Auto) Lymph # (Auto) [place] # (Auto) Eos # (Auto) Baso # (Auto) WBC Differential Differential Comment POC Glucose 239 H Assessment and Plan - Assessment (1) Hypertension Code(s): I10 - Essential (primary) hypertension Status: Chronic (2) Unspecified psychosis Code(s): F29 - Unspecified psychosis not due to a substance or known physiological condition Status: Acute (3) DM (diabetes mellitus) Code(s): E11.9 - Type 2 diabetes mellitus without complications Status: Chronic - Plan Patient is a 57-year-old female with past medical history of diabetes and hypertension who is admitted for confusion and psychiatric disturbance. She was recently hospitalized under [facility] after being found wandering the streets confused and disoriented. Upon admission to the hospital she was found to be in DKA and to have a UTI. This has resolved and she is now being managed by psychiatry. she is a very poor historian. Psychosis -Managed by psychiatryprimary DM -Sliding-scale insulin -patient is refusing all insulin. Is taking p.o. so will add metformin-initially 500 twice daily (04/04), increased to 1000 BID (04/06) . Consider other oral medications if she continues to refuse insulin. -Diabetic diet Hypertension -Lisinopril 20 mg -Blood pressures moderately improved. Patient is somewhat resistant to taking medications per nursing. Edema -Lasix + K p.o. daily. Monitor electrolytes; stable. DVT prophylaxis: Patient is ambulatory Discussed with: Patient and nurse Patient appears to be medically stable. Hospitalist service will sign off. Please reconsult if needed
--- NOTE | 2018-04-06 18:09 | P.PNPSY ---
Subjective Remarks: Patient seen for follow-up, chart reviewed. Discussion with nursing staff reported that the patient refused medications last evening, continues to be paranoid with staff and suspicious with medications. Patient was found sitting in hospital bed noted be superficially cooperative interview today. Patient states that she slept well last night and that her mood is "beautiful" reporting eating and drinking well with no difficulty or bowel movement. Patient continues to deny any perceptional services and today was able to recall having been visited by her sister which she denied on the of visit. Patient was encouraged and explained importance of allowing for labs of to continue with clozapine treatment which she acknowledged and allowed. Review of Systems All other systems reviewed negative except as stated in HPI Mental Status Examination Appearance: Appropriate Consciousness: Alert Orientation: Person, Place Speech: Hesitant Language: Adequate Fund of Knowledge: Inadequate Attention and Concentration: Easily distracted Memory: Impaired (On clinical exam) Mood: Other ("fine") Affect: Irritable (At times), Blunt Thought Process & Associations: Disorganized (Lessening), Other ([place]) Thought Content: Hallucinations (Denies but noted to be internally stimulated), Thought blocking (Lessening) Hallucination Type: Auditory (Internally stimulated although lessening) Delusion Type: Paranoid Suicidal Ideation: No Suicidal Plan: No Suicidal Intention: No Homicidal Ideation: No Homicidal Plan: No Homicidal Intention: No Insight: Poor Judgment: Poor Assessment and Plan - Assessment (1) Acute exacerbation of chronic schizophrenia Code(s): F20.9 - Schizophrenia, unspecified Status: Acute - Plan Plan: Patient continued with paranoia, refusing to participate in groups, and has been reluctant to comply with lab work but did allow today. We will continue clozapine at 250 mg p.o. at bedtime, we will continue to monitor mood and behavior. Discharge planning in progress. Justification for Continued Inpatient Stay: At risk for further decompensation if at lower level of care.
[2018-04-06] MEDS: Insulin Detemir Inj 1,000 UNIT/10 ML Vial SQ SCH (21:52)
[2018-04-07] MEDS: Metoprolol Tartrate 25 MG Tablet PO SCH (08:37)
[2018-04-07] MEDS: Furosemide 20 MG Tablet PO SCH (08:37)
[2018-04-07] MEDS: Lisinopril 20 MG Tablet PO SCH ×2 (08:37→21:12)
[2018-04-07] MEDS: Senna/Docusate Sodium 8.6/50 MG Tablet PO SCH ×2 (08:37→21:10)
[2018-04-07] MEDS: Potassium Chloride 10 MEQ ER Capsule PO SCH (08:37)
[2018-04-07] MEDS: Insulin NovoLOG Aspart Correctional Sugar Inj SQ SCH ×6 (08:38→16:53)
[2018-04-07] MEDS: Haloperidol Inj 5 MG/ML Ampul IM SCH (08:39)
--- NOTE | 2018-04-07 19:07 | P.PNPSY ---
Subjective Remarks: Patient seen for follow-up, chart reviewed. Discussion with nursing staff reported that the patient continue with paranoid ideations and particularly with medications as he need to be opened in front of her but compliant and medically cleared now. Patient was found lying hospital bed asleep was able to wake up to interact with interview today. Patient states she is feeling "fine" reports adequate appetite, bowel movement and taking medications which she feels is helpful. Patient states "everything is better". Patient continues to be reluctant to engage in conversation of where she will be discharged to upon medical and psychiatric stabilization. Review of Systems All other systems reviewed negative except as stated in HPI Mental Status Examination Appearance: Appropriate Consciousness: Alert Orientation: Person, Place Speech: Hesitant Language: Adequate Fund of Knowledge: Inadequate Attention and Concentration: Easily distracted Memory: Impaired (On clinical exam) Mood: Other ("fine") Affect: Irritable (Only when speaking about discharge placement), Blunt Thought Process & Associations: Disorganized (Lessening), Other ([place]) Thought Content: Hallucinations (Denies but noted to be internally stimulated), Thought blocking (Lessening) Hallucination Type: Auditory (Internally stimulated although lessening) Delusion Type: Paranoid Suicidal Ideation: No Suicidal Plan: No Suicidal Intention: No Homicidal Ideation: No Homicidal Plan: No Homicidal Intention: No Insight: Poor Judgment: Poor Assessment and Plan - Assessment (1) Acute exacerbation of chronic schizophrenia Code(s): F20.9 - Schizophrenia, unspecified Status: Acute - Plan Plan: Patient this time continues be noted to be paranoid, hypervigilant, and refusing to engage in conversation about discharge planning. We will continue to titrate clozapine to 300 mg nightly for psychosis. We will continue to monitor mood and behavior. Continue to encourage patient to participate in groups and activities and maintain adequate hygiene. Discharge planning in progress. Justification for Continued Inpatient Stay: At risk for further decompensation if at lower level of care.
[2018-04-07] MEDS: Insulin Detemir Inj 1,000 UNIT/10 ML Vial SQ SCH (21:20)
[2018-04-08] MEDS: Haloperidol Inj 5 MG/ML Ampul IM SCH ×3 (06:27→22:03)
[2018-04-08] MEDS: Metoprolol Tartrate 25 MG Tablet PO SCH ×3 (06:27→22:00)
[2018-04-08] MEDS: Insulin NovoLOG Aspart Correctional Sugar Inj SQ SCH ×6 (07:53→22:09)
[2018-04-08] MEDS: Potassium Chloride 10 MEQ ER Capsule PO SCH (09:26)
[2018-04-08] MEDS: Lisinopril 20 MG Tablet PO SCH ×2 (09:27→22:00)
[2018-04-08] MEDS: Senna/Docusate Sodium 8.6/50 MG Tablet PO SCH ×2 (09:27→21:59)
[2018-04-08] MEDS: Furosemide 20 MG Tablet PO SCH (09:28)
--- NOTE | 2018-04-08 14:03 | ECG ---
Date Performed: 04/07/2018 Time Performed: 18:20:48 PTAGE: 57 years EKG: SINUS TACHYCARDIA MARKED LEFT AXIS DEVIATION SEPTAL MYOCARDIAL INFARCTION , OF INDETERMINAT E AGE ABNORMAL ECG Since the PREVIOUS TRACING , no significant change noted PREVIOUS TRACIN04/07/2018 17.24 DOCTOR: Dolores Murrieta Interpretating Date/Time 04/08/2018 14:03:22
--- NOTE | 2018-04-08 14:10 | ECG ---
Date Performed: 04/07/2018 Time Performed: 17:24:25 PTAGE: 57 years EKG: ATRIAL FLUTTER/TACHYCARDIA WITH RAPID VENTRICULAR RESPONSE LEFT ANTERIOR FASCICULAR BLOCK N ONSPECIFIC T-WAVE ABNORMALITY ABNORMAL ECG Since the PREVIOUS TRACING , no significant change noted PREVIOUS TRACIN03/23/2018 19.19 DOCTOR: Dolores Murrieta Interpretating Date/Time 04/08/2018 14:08:48
--- NOTE | 2018-04-08 17:06 | P.PN ---
Subjective Interval history: Patient is seen sitting in room. She tells me that she is well. Denies any chest pain, shortness of breath or palpitations. No dizziness or syncopal events. No nausea vomiting or diarrhea. Physical Exam Vital signs: Vital Signs 04/07/18 17:22 04/08/18 06:19 Temperature 98.7 F 97.0 F L Pulse Rate 105 H 106 H Respiratory Rate 19 16 Blood Pressure 110/59 L 130/61 Pulse Oximetry 95 98 Intake & Output 04/07/18 04/08/18 04/08/18 18:59 06:59 18:59 Intake Total 240 / 240 240 / 240 Balance 240 / 240 240 / 240 Intake: Oral 240 / 240 240 / 240 Oral Supplement 0 / 0 Other: # Bowel Movements 0 Narrative: GENERAL: Well-nourished, well-developed adult female in no obvious distress. SKIN: Warm and dry. HEAD: Atraumatic. Normocephalic. CARDIOVASCULAR: Regular rate and rhythm. RESPIRATORY: No accessory muscle use. Clear to auscultation. Breath sounds equal bilaterally. GASTROINTESTINAL: Abdomen soft, non-tender, non-distended. Positive bowel sounds. MUSCULOSKELETAL: Extremities without clubbing, cyanosis, or edema. No obvious deformities. NEUROLOGICAL: Awake and alert. No obvious cranial nerve deficits. Results - Labs CBC & Chem 7: 04/06/18 08:22 04/03/18 11:37 Laboratory Results - last 24 hr 04/07/18 04/07/18 04/08/18 23:13 23:17 06:59 POC Glucose 244 H 154 H 197 H 04/08/18 16:37 POC Glucose 160 H Assessment and Plan - Assessment (1) Hypertension Code(s): I10 - Essential (primary) hypertension Status: Chronic (2) Unspecified psychosis Code(s): F29 - Unspecified psychosis not due to a substance or known physiological condition Status: Acute (3) DM (diabetes mellitus) Code(s): E11.9 - Type 2 diabetes mellitus without complications Status: Chronic - Plan Patient is a 57-year-old female with past medical history of diabetes and hypertension who is admitted for confusion and psychiatric disturbance. She was recently hospitalized under [facility] act after being found wandering the streets confused and disoriented. Upon admission to the hospital she was found to be in DKA and to have a UTI. This has resolved and she is now being managed by psychiatry. she is a very poor historian. Psychosis -Managed by psychiatryprimary DM -Sliding-scale insulin -patient is refusing all insulin. Is taking p.o. so will add metformin-initially 500 twice daily (04/04), increased to 1000 BID (04/06) . Consider other oral medications if she continues to refuse insulin. -Diabetic diet Hypertension -Lisinopril 20 mg -Blood pressures moderately improved. Patient is somewhat resistant to taking medications per nursing. -Hospitalist service recalled to evaluate changes in EKG done 04/07. Initial EKG showed what appeared to be atrial flutter; repeat EKG showed sinus tach which was consistent with prior EKG. no changes needed to medical plan. Patient is recommended to follow-up with [facility] as an outpatient. Edema -Lasix + K p.o. daily. Monitor electrolytes; stable. DVT prophylaxis: Patient is ambulatory Discussed with: Patient and nurse Patient appears to be medically stable. Hospitalist service will sign off. Please reconsult if needed
--- NOTE | 2018-04-08 19:31 | P.PNPSY ---
Subjective Remarks: Reviewed electronic medical records and discussed case with staff. Follow-up was conducted in patient's room. She was found lying on the bed. She wakes to verbal stimuli. She reports that she has been sleeping and eating well. Her mood seems to be good and her affect is euthymic. Nurse reports she has been taking her medications intermittently remains paranoid needing to check the medications and take him out of the blister packs herself. She also remained seclusive to her room. She continues to typically refuse 1 of the doses of insulin however, her blood glucose levels have not been horrible. Mental Status Examination Appearance: Appropriate Consciousness: Alert Orientation: Person, Place Speech: Hesitant Language: Adequate Fund of Knowledge: Inadequate Attention and Concentration: Easily distracted Memory: Impaired (On clinical exam) Mood: Other ("fine") Affect: Irritable (Only when speaking about discharge placement), Blunt Thought Process & Associations: Disorganized (Lessening), Other ([place]) Thought Content: Hallucinations (Denies but noted to be internally stimulated), Thought blocking (Lessening) Hallucination Type: Auditory (Internally stimulated although lessening) Delusion Type: Paranoid Suicidal Ideation: No Suicidal Plan: No Suicidal Intention: No Homicidal Ideation: No Homicidal Plan: No Homicidal Intention: No Insight: Poor Judgment: Poor Assessment and Plan - Assessment (1) Acute exacerbation of chronic schizophrenia Code(s): F20.9 - Schizophrenia, unspecified Status: Acute - Plan Plan: Patient will be reevaluated [Tuesday] by the attending psychiatrist. Continue with current treatment plan. Justification for Continued Inpatient Stay: Moving this patient to a less restrictive environment would likely result in decompensation.
[2018-04-08] MEDS: Insulin Detemir Inj 1,000 UNIT/10 ML Vial SQ SCH (22:01)
[2018-04-09] MEDS: Insulin NovoLOG Aspart Correctional Sugar Inj SQ SCH ×6 (09:02→17:58)
[2018-04-09] MEDS: Haloperidol Inj 5 MG/ML Ampul IM SCH ×2 (09:05→20:51)
[2018-04-09] MEDS: Potassium Chloride 10 MEQ ER Capsule PO SCH (10:20)
[2018-04-09] MEDS: Metoprolol Tartrate 25 MG Tablet PO SCH ×2 (10:20→20:25)
[2018-04-09] MEDS: Furosemide 20 MG Tablet PO SCH (10:20)
[2018-04-09] MEDS: Senna/Docusate Sodium 8.6/50 MG Tablet PO SCH ×2 (10:20→20:26)
[2018-04-09] MEDS: Lisinopril 20 MG Tablet PO SCH ×2 (10:21→20:26)
--- NOTE | 2018-04-09 12:49 | P.PNPSY ---
Subjective Remarks: Reviewed electronic medical records and discussed case with staff. Follow-up was conducted in her room. Patient was found lying in the bed sleeping she awoke to verbal stimuli. Patient reports that she has been sleeping well. However, she has not been eating. Her follow-up was conducted lunchtime and she is. She reported she had not eaten breakfast. When I spoke with her nurse she advises that the patient has been refusing to eat for a while now. She additionally has been refusing to take her medications. Consulted with Dr. Arreaga who advised that the patient needs to have the food left in front of her and needs to have repeated coaxing to take medication and eat. Staff was advised. Mental Status Examination Appearance: Appropriate Consciousness: Alert Orientation: Person, Place Speech: Hesitant Language: Adequate Fund of Knowledge: Inadequate Attention and Concentration: Easily distracted Memory: Impaired (On clinical exam) Mood: Other ("fine") Affect: Irritable (Only when speaking about discharge placement), Blunt Thought Process & Associations: Disorganized (Lessening), Other ([place]) Thought Content: Hallucinations (Denies but noted to be internally stimulated), Thought blocking (Lessening) Hallucination Type: Auditory (Internally stimulated although lessening) Delusion Type: Paranoid Suicidal Ideation: No Suicidal Plan: No Suicidal Intention: No Homicidal Ideation: No Homicidal Plan: No Homicidal Intention: No Insight: Poor Judgment: Poor Assessment and Plan - Assessment (1) Acute exacerbation of chronic schizophrenia Code(s): F20.9 - Schizophrenia, unspecified Status: Acute - Plan Plan: Patient will be reevaluated tomorrow by the attending psychiatrist. Continue with current treatment plan. Justification for Continued Inpatient Stay: Moving this patient to a less restrictive environment would likely result in decompensation.
[2018-04-09] MEDS: Insulin Detemir Inj 1,000 UNIT/10 ML Vial SQ SCH (23:54)
[2018-04-10] MEDS: Insulin NovoLOG Aspart Correctional Sugar Inj SQ SCH ×8 (07:11→22:07)
[2018-04-10] MEDS: Potassium Chloride 10 MEQ ER Capsule PO SCH (08:55)
[2018-04-10] MEDS: Metoprolol Tartrate 25 MG Tablet PO SCH ×2 (08:55→22:08)
[2018-04-10] MEDS: Furosemide 20 MG Tablet PO SCH (08:56)
[2018-04-10] MEDS: Senna/Docusate Sodium 8.6/50 MG Tablet PO SCH ×2 (08:56→20:45)
[2018-04-10] MEDS: Lisinopril 20 MG Tablet PO SCH ×2 (08:56→20:45)
[2018-04-10] MEDS: Haloperidol Inj 5 MG/ML Ampul IM SCH ×2 (08:56→22:07)
--- NOTE | 2018-04-10 17:55 | P.PNPSY ---
Subjective Remarks: Patient seen for follow-up, chart reviewed. Discussion with nursing staff reported that the patient continues to be isolative , compliant with medications. Patient found lying hospital bed noted to be disheveled time clear with patient has been able to shower recently but noted to be more engaging and responding more appropriately during interview. Patient no longer noted to be thought blocking as much, not noted to be responding to internal stimuli during interview. Patient states that she is feeling "fine" stating that her mood has been all right, reports eating and drinking well and taking her medications although she at times refuses certain medications but has been adherent to her antipsychotic. Patient states that she does not have any auditory or visual hallucinations. Patient reports not having spoken with her sister but does recall having been visited by her sister several days ago. Patient agrees today to attend groups which she has refused in the past. Review of Systems All other systems reviewed negative except as stated in HPI Mental Status Examination Appearance: Appropriate Consciousness: Alert Orientation: Person, Place Speech: Unremarkable Language: Adequate Fund of Knowledge: Inadequate Attention and Concentration: Easily distracted Memory: Impaired (On clinical exam) Mood: Other ("fine") Affect: Blunt (More reactive) Thought Process & Associations: Disorganized (Lessening), Other ([place]) Thought Content: Hallucinations (Denies but noted to be internally stimulated although lessening) Hallucination Type: Auditory (Internally stimulated although lessening) Delusion Type: Paranoid Suicidal Ideation: No Suicidal Plan: No Suicidal Intention: No Homicidal Ideation: No Homicidal Plan: No Homicidal Intention: No Insight: Poor Judgment: Poor Assessment and Plan - Assessment (1) Acute exacerbation of chronic schizophrenia Code(s): F20.9 - Schizophrenia, unspecified Status: Acute - Plan Plan: Patient appears to be improving with affect as well as less irritability but continues to be selective with medication compliance but taking her antipsychotic. Patient also now agreeing to start attending groups which she has refused in the past but continues to require encouragement for self hygiene. We will increase clozapine to 350 mg p.o. at bedtime with upper titration as needed for psychosis. We will continue to monitor mood and behavior. Discharge planning a progress. Justification for Continued Inpatient Stay: Patient seen for follow-up, chart reviewed. Discussion with nursing staff reported that the patient
[2018-04-10] MEDS: Insulin Detemir Inj 1,000 UNIT/10 ML Vial SQ SCH (22:07)
[2018-04-11] MEDS: Furosemide 20 MG Tablet PO SCH (08:20)
[2018-04-11] MEDS: Senna/Docusate Sodium 8.6/50 MG Tablet PO SCH ×2 (08:20→20:10)
[2018-04-11] MEDS: Potassium Chloride 10 MEQ ER Capsule PO SCH (08:20)
[2018-04-11] MEDS: Lisinopril 20 MG Tablet PO SCH ×2 (08:20→20:09)
[2018-04-11] MEDS: Haloperidol Inj 5 MG/ML Ampul IM SCH ×2 (08:21→23:15)
[2018-04-11] MEDS: Metoprolol Tartrate 25 MG Tablet PO SCH ×2 (08:21→23:04)
[2018-04-11] MEDS: Insulin NovoLOG Aspart Correctional Sugar Inj SQ SCH ×7 (08:21→23:04)
--- NOTE | 2018-04-11 11:02 | P.PNPSY ---
Subjective Remarks: Patient seen for follow-up, chart reviewed. Discussion nursing staff reported patient continues to be guarded, suspicious but compliant with medication, having some resistance to shower. Patient was found lying hospital bed stating she is feeling tired and that she did not sleep well last evening but was able to express what kept her up last night. Patient states that she is able to wash reports denies having taken a shower recently and was encouraged to do so which she reluctantly agreed to. Patient denies any perceptional services. Patient continues to be resistant to engaging in conversation of where she will be discharged to once clear from the hospital. Patient has not communicated with her sister was encouraged to do so which she agreed to try to call today. Patient also has refused to attend any groups. Review of Systems All other systems reviewed negative except as stated in HPI Mental Status Examination Appearance: Appropriate Consciousness: Alert Orientation: Person, Place Speech: Unremarkable Language: Adequate Fund of Knowledge: Inadequate Attention and Concentration: Adequate Memory: Impaired (On clinical exam) Mood: Other ("fine") Affect: Blunt (More reactive) Thought Process & Associations: Disorganized (Lessening), Other ([place]) Thought Content: Hallucinations (Denies but noted to be internally stimulated although lessening) Hallucination Type: Auditory (Denies) Delusion Type: Paranoid Suicidal Ideation: No Suicidal Plan: No Suicidal Intention: No Homicidal Ideation: No Homicidal Plan: No Homicidal Intention: No Insight: Poor Judgment: Poor Assessment and Plan - Assessment (1) Acute exacerbation of chronic schizophrenia Code(s): F20.9 - Schizophrenia, unspecified Status: Acute - Plan Plan: Patient noted with improved affect but continues to be isolative, marginal maintenance of hygiene although does use washcloth but has not showered. Patient continues to be isolative and refused to participate in groups. Patient is noted to be more engaging in conversation with less thought blocking and no longer noted to be responding to internal stimuli. We will continue current treatment. We will continue to monitor mood and behavior. Discharge planning a progress. Justification for Continued Inpatient Stay: At risk for decompensation a lower level of care.
[2018-04-11] MEDS: Insulin Detemir Inj 1,000 UNIT/10 ML Vial SQ SCH (23:15)
[2018-04-12] MEDS: Insulin NovoLOG Aspart Correctional Sugar Inj SQ SCH ×7 (10:32→22:25)
[2018-04-12] MEDS: Metoprolol Tartrate 25 MG Tablet PO SCH ×2 (12:22→22:24)
[2018-04-12] MEDS: Furosemide 20 MG Tablet PO SCH (12:22)
[2018-04-12] MEDS: Senna/Docusate Sodium 8.6/50 MG Tablet PO SCH ×2 (12:23→21:00)
[2018-04-12] MEDS: Lisinopril 20 MG Tablet PO SCH ×2 (12:23→21:00)
[2018-04-12] MEDS: Potassium Chloride 10 MEQ ER Capsule PO SCH (12:23)
[2018-04-12] MEDS: Haloperidol Inj 5 MG/ML Ampul IM SCH (12:26)
--- NOTE | 2018-04-12 17:16 | P.PNPSY ---
Subjective Remarks: Patient seen for follow-up, chart reviewed. Discussion with nursing staff reported the patient refused medications this morning but has been compliant with her clozapine in the evening, continues to be seclusive, denying any perceptional disturbances. Patient was found lying hospital bed asleep able to wake up to interact with interview. She reports having slept well last evening , states she did not reach out to her sister A. Patient was reminded that she had agreed to participate in groups and states that she will try it today. Patient was also encouraged to shower. Discussion of discharge planning was reviewed with patient which patient continues to state that she does not know where she will go but that she will let us now. She was encouraged to reach out to her sister to discuss options of at her returning back to her uncle or wanted to be referred to an assisted living facility. Patient agreed to do this today. Review of Systems All other systems reviewed negative except as stated in HPI Mental Status Examination Appearance: Appropriate Consciousness: Alert Orientation: Person, Place Speech: Unremarkable Language: Adequate Fund of Knowledge: Inadequate Attention and Concentration: Adequate Memory: Impaired (On clinical exam) Mood: Other ("fine") Affect: Blunt (More reactive) Thought Process & Associations: Disorganized (Lessening), Other ([place]) Thought Content: Appropriate Hallucination Type: None Delusion Type: Paranoid (lessening) Suicidal Ideation: No Suicidal Plan: No Suicidal Intention: No Homicidal Ideation: No Homicidal Plan: No Homicidal Intention: No Insight: Poor Judgment: Poor Assessment and Plan - Assessment (1) Acute exacerbation of chronic schizophrenia Code(s): F20.9 - Schizophrenia, unspecified Status: Acute - Plan Plan: Patient this time has a compliant with clozapine and evening but a consistent with her medical medications. Patient continues to be seclusive to room, continues to have marginal hygiene and has not participated in groups and activities and mostly eating her meals in her room. Patient encouraged to reach out to her sister to begin to finalize discharge planning. We will continue current treatment for now. We will continue to monitor mood and behavior. Discharge planning a progress. Justification for Continued Inpatient Stay: At risk of further decompensation a lower level of care.
[2018-04-12] MEDS: Insulin Detemir Inj 1,000 UNIT/10 ML Vial SQ SCH (22:24)
[2018-04-13] MEDS: Insulin NovoLOG Aspart Correctional Sugar Inj SQ SCH ×7 (07:18→20:55)
[2018-04-13] MEDS: Potassium Chloride 10 MEQ ER Capsule PO SCH (10:00)
[2018-04-13] MEDS: Senna/Docusate Sodium 8.6/50 MG Tablet PO SCH ×2 (10:00→20:56)
[2018-04-13] MEDS: Furosemide 20 MG Tablet PO SCH (10:01)
[2018-04-13] MEDS: Lisinopril 20 MG Tablet PO SCH ×2 (10:01→20:59)
[2018-04-13] MEDS: Metoprolol Tartrate 25 MG Tablet PO SCH ×2 (10:02→20:58)
[2018-04-13] MEDS: Haloperidol Inj 5 MG/ML Ampul IM SCH ×2 (10:04→20:58)
--- NOTE | 2018-04-13 11:41 | P.PNPSY ---
Subjective Remarks: Patient seen for follow, chart reviewed. Discussion nursing staff reported the patient continues to be compliant with medications and seclusive to her room mostly. Patient presented to mental health court today where patient was retained on a continuance for continued stabilization as well as for appropriate discharge planning. Patient was noted to be able to engage appropriately during court session and stated that she was not ready yet to leave the hospital. Review of Systems All other systems reviewed negative except as stated in HPI Mental Status Examination Appearance: Appropriate Consciousness: Alert Orientation: Person, Place Speech: Unremarkable Language: Adequate Fund of Knowledge: Inadequate Attention and Concentration: Adequate Memory: Impaired (On clinical exam) Mood: Other ("fine") Affect: Blunt (More reactive) Thought Process & Associations: Other ([place]) Thought Content: Appropriate Hallucination Type: None Delusion Type: Paranoid (lessening) Suicidal Ideation: No Suicidal Plan: No Suicidal Intention: No Homicidal Ideation: No Homicidal Plan: No Homicidal Intention: No Insight: Poor Judgment: Poor Assessment and Plan - Assessment (1) Acute exacerbation of chronic schizophrenia Code(s): F20.9 - Schizophrenia, unspecified Status: Acute - Plan Plan: Patient continues to be seclusive to her room, compliant with treatment, hygiene is marginal at best but has adequate nutritional intake. We will continue current treatment. We will continue to monitor mood and behavior. Continue to encourage patient to participate in groups and activities. Treatment team will attempt to continue to work with patient's sister to address referral to possibly an assisted living facility. Discharge planning in progress. Justification for Continued Inpatient Stay: At risk of further decompensation a lower level of care.
[2018-04-13 13:55] LABS: Baso % (Auto) 0.4 % (0.0-2.0); Eos % (Auto) 0.4 % (0.0-4.0); Hemoglobin 10.2 gm/dL (11.6-15.3); Lymph # (Auto) 3.2 th/mm3 (1.0-4.8); Lymph % (Auto) 31.6 % (9.0-44.0); Mean Corpuscular Hemoglobin 27.4 pg (27.0-34.0); Mean Corpuscular Volume 83.1 fL (80.0-100.0); Mean Platelet Volume 7.1 fL (7.0-11.0); Mono # (Auto) 0.6 th/mm3 (0.0-0.9); Mono % (Auto) 5.4 % (0.0-8.0); Neut # (Auto) 6.4 th/mm3 (1.8-7.7); Neut % (Auto) 62.2 % (16.0-70.0); Platelet Count 500 th/mm3 (150-450); Red Blood Count 3.73 mil/mm3 (4.00-5.30); Red Cell Distribution Width 13.9 % (11.6-17.2); White Blood Count 10.2 th/mm3 (4.0-11.0)
[2018-04-13] MEDS: Insulin Detemir Inj 1,000 UNIT/10 ML Vial SQ SCH (20:57)
[2018-04-14] MEDS: Furosemide 20 MG Tablet PO SCH (09:00)
[2018-04-14] MEDS: Senna/Docusate Sodium 8.6/50 MG Tablet PO SCH ×2 (09:03→20:28)
[2018-04-14] MEDS: Lisinopril 20 MG Tablet PO SCH ×2 (09:04→20:28)
[2018-04-14] MEDS: Metoprolol Tartrate 25 MG Tablet PO SCH ×2 (09:04→20:28)
[2018-04-14] MEDS: Insulin NovoLOG Aspart Correctional Sugar Inj SQ SCH ×6 (09:34→20:03)
[2018-04-14] MEDS: Haloperidol Inj 5 MG/ML Ampul IM SCH (09:38)
[2018-04-14] MEDS: Potassium Chloride 10 MEQ ER Capsule PO SCH (09:42)
--- NOTE | 2018-04-14 13:40 | P.PNPSY ---
Subjective Remarks: Patient seen for follow, chart reviewed. Discussion nursing staff reported patient slightly suspicious of medications but has been out for meals and more visible on the unit. Patient was found lying hospital bed noted B, cooperative noted be good spirits with appropriate engagement in interview today. Patient states that she has been tolerating medications well, noted to be bright with good affect stated that she is looking forward to referral to an assisted living facility as she did not want return back to live with the uncle. He denies any physical complaints at this time states having gone off her meals and been in the day room earlier today and agrees to attempt to go to a group. Patient denies any perceptional services or delusions. Review of Systems All other systems reviewed negative except as stated in HPI Mental Status Examination Appearance: Appropriate Consciousness: Alert Orientation: Person, Place Speech: Unremarkable Language: Adequate Fund of Knowledge: Inadequate Attention and Concentration: Adequate Memory: Impaired (On clinical exam) Mood: Other ("fine") Affect: Appropriate Thought Process & Associations: Linear Thought Content: Appropriate Hallucination Type: None Delusion Type: Paranoid (slightly) Suicidal Ideation: No Suicidal Plan: No Suicidal Intention: No Homicidal Ideation: No Homicidal Plan: No Homicidal Intention: No Insight: Poor (improving) Judgment: Impulsive Assessment and Plan - Assessment (1) Acute exacerbation of chronic schizophrenia Code(s): F20.9 - Schizophrenia, unspecified Status: Acute - Plan Plan: Patient noted with appropriate affect today noted to be engaging in participation of meals outside of her room, with more visible on the unit. Patient continues to deny any perceptual disturbances, tolerating medications well. Continue current treatment, continue to monitor mood and behavior. Patient to be referred to [facility] as patient will not be returning back to prior residence. Justification for Continued Inpatient Stay: At risk for further decompensation at lower level of care.
[2018-04-15] MEDS: Haloperidol Inj 5 MG/ML Ampul IM SCH ×3 (05:11→20:54)
[2018-04-15] MEDS: Insulin Detemir Inj 1,000 UNIT/10 ML Vial SQ SCH ×2 (05:12→21:29)
[2018-04-15] MEDS: Insulin NovoLOG Aspart Correctional Sugar Inj SQ SCH ×8 (05:12→21:04)
[2018-04-15] MEDS: Furosemide 20 MG Tablet PO SCH (08:29)
[2018-04-15] MEDS: Lisinopril 20 MG Tablet PO SCH ×2 (08:29→20:53)
[2018-04-15] MEDS: Potassium Chloride 10 MEQ ER Capsule PO SCH (08:29)
[2018-04-15] MEDS: Metoprolol Tartrate 25 MG Tablet PO SCH ×2 (08:29→20:53)
[2018-04-15] MEDS: Senna/Docusate Sodium 8.6/50 MG Tablet PO SCH ×2 (08:29→20:53)
--- NOTE | 2018-04-15 13:49 | P.PNPSY ---
Subjective Remarks: Patient was seen and case discussed with nursing. Patient is pleasant and cooperative with exam. She is behaving well on the unit. Compliant with her medications. She has not had any outbursts. No delusions were elicited today Mental Status Examination Appearance: Appropriate Consciousness: Alert Orientation: Person, Place Speech: Unremarkable Language: Adequate Fund of Knowledge: Inadequate Attention and Concentration: Adequate Memory: Impaired (On clinical exam) Mood: Other ("fine") Affect: Appropriate Thought Process & Associations: Linear Thought Content: Appropriate Hallucination Type: None Delusion Type: Paranoid (slightly) Suicidal Ideation: No Suicidal Plan: No Suicidal Intention: No Homicidal Ideation: No Homicidal Plan: No Homicidal Intention: No Insight: Poor (improving) Judgment: Impulsive Assessment and Plan - Assessment (1) Acute exacerbation of chronic schizophrenia Code(s): F20.9 - Schizophrenia, unspecified Status: Acute - Plan Plan: Continue current treatment plan Justification for Continued Inpatient Stay: Patient would decompensate in a less restrictive setting
[2018-04-16] MEDS: Insulin NovoLOG Aspart Correctional Sugar Inj SQ SCH ×7 (08:03→20:36)
[2018-04-16] MEDS: Senna/Docusate Sodium 8.6/50 MG Tablet PO SCH ×2 (08:38→20:33)
[2018-04-16] MEDS: Metoprolol Tartrate 25 MG Tablet PO SCH ×2 (08:38→20:33)
[2018-04-16] MEDS: Lisinopril 20 MG Tablet PO SCH ×2 (08:39→20:33)
[2018-04-16] MEDS: Furosemide 20 MG Tablet PO SCH (08:39)
[2018-04-16] MEDS: Potassium Chloride 10 MEQ ER Capsule PO SCH (08:39)
[2018-04-16] MEDS: Haloperidol Inj 5 MG/ML Ampul IM SCH ×2 (09:00→20:36)
--- NOTE | 2018-04-16 13:21 | P.PNPSY ---
Subjective Remarks: Patient was seen and case discussed with nursing. Patient is behaving well on the unit. Spending the day watching TV and socializing with others. She denies any auditory or visual hallucinations today. She is glad her constipation has been resolved. Eating and sleeping well Mental Status Examination Appearance: Appropriate Consciousness: Alert Orientation: Person, Place Speech: Unremarkable Language: Adequate Fund of Knowledge: Inadequate Attention and Concentration: Adequate Memory: Impaired (On clinical exam) Mood: Other ("fine") Affect: Appropriate Thought Process & Associations: Linear Thought Content: Appropriate Hallucination Type: None Delusion Type: Paranoid (slightly) Suicidal Ideation: No Suicidal Plan: No Suicidal Intention: No Homicidal Ideation: No Homicidal Plan: No Homicidal Intention: No Insight: Poor (improving) Judgment: Impulsive Assessment and Plan - Assessment (1) Acute exacerbation of chronic schizophrenia Code(s): F20.9 - Schizophrenia, unspecified Status: Acute - Plan Plan: Continue current treatment plan Justification for Continued Inpatient Stay: Patient would decompensate in a less restrictive setting
[2018-04-16] MEDS: Insulin Detemir Inj 1,000 UNIT/10 ML Vial SQ SCH (20:35)
[2018-04-17] MEDS: Insulin NovoLOG Aspart Correctional Sugar Inj SQ SCH ×7 (08:00→21:06)
[2018-04-17] MEDS: Metoprolol Tartrate 25 MG Tablet PO SCH ×2 (08:48→21:05)
[2018-04-17] MEDS: Furosemide 20 MG Tablet PO SCH (08:48)
[2018-04-17] MEDS: Senna/Docusate Sodium 8.6/50 MG Tablet PO SCH ×2 (08:48→22:27)
[2018-04-17] MEDS: Potassium Chloride 10 MEQ ER Capsule PO SCH (08:49)
[2018-04-17] MEDS: Lisinopril 20 MG Tablet PO SCH ×2 (08:49→21:04)
[2018-04-17] MEDS: Haloperidol Inj 5 MG/ML Ampul IM SCH (08:50)
--- NOTE | 2018-04-17 16:00 | P.PNPSY ---
Subjective Remarks: Patient seen for follow up; chart reviewed. Discussion with nursing staff reported patient med compliant, is accepting accuchecks and levemir; less paranoid. Patient found in dayroom, noted to be calm and cooperative. She states she is feeling "fine", weekend went well, has occasional constipation but had bowel movement yesterday. She reports good mood, denies any perceptual disturbances or delusions. Review of Systems All other systems reviewed negative except as stated in HPI Mental Status Examination Appearance: Appropriate Consciousness: Alert Orientation: Person, Place Speech: Unremarkable Language: Adequate Fund of Knowledge: Inadequate Attention and Concentration: Adequate Memory: Unremarkable Mood: Good Affect: Appropriate Thought Process & Associations: Linear Thought Content: Appropriate Hallucination Type: None Delusion Type: Paranoid (slightly) Suicidal Ideation: No Suicidal Plan: No Suicidal Intention: No Homicidal Ideation: No Homicidal Plan: No Homicidal Intention: No Insight: Fair (improving) Judgment: Impulsive Assessment and Plan - Assessment (1) Acute exacerbation of chronic schizophrenia Code(s): F20.9 - Schizophrenia, unspecified Status: Acute - Plan Plan: Patient noted to have brighter affect, engaged more effectively during interview , denying any perceptional disturbances or delusions. Patient continues to refuse wanting to return back with her" but is agreeable to be referred to an assisted living facility which treatment team is currently exploring. Continue current treatment. Continue to monitor mood and behavior. Discharge planning in progress. Justification for Continued Inpatient Stay: At risk for further decompensation if at lower level of care.
[2018-04-17] MEDS: Insulin Detemir Inj 1,000 UNIT/10 ML Vial SQ SCH (21:05)
[2018-04-18] MEDS: Insulin NovoLOG Aspart Correctional Sugar Inj SQ SCH ×7 (07:15→21:14)
[2018-04-18] MEDS: Senna/Docusate Sodium 8.6/50 MG Tablet PO SCH ×2 (08:42→20:31)
[2018-04-18] MEDS: Metoprolol Tartrate 25 MG Tablet PO SCH ×2 (08:42→20:31)
[2018-04-18] MEDS: Furosemide 20 MG Tablet PO SCH (08:42)
[2018-04-18] MEDS: Potassium Chloride 10 MEQ ER Capsule PO SCH (08:42)
[2018-04-18] MEDS: Lisinopril 20 MG Tablet PO SCH ×2 (08:42→20:31)
--- NOTE | 2018-04-18 20:06 | P.PNPSY ---
Subjective Remarks: Patient seen for follow-up, chart reviewed. Discussion nursing staff reported the patient has a compliant medications, agreed to go to groups. Patient was found participating in group in day room noted B, cooperative. Patient states that she is feeling "fine" reports attending more groups now, denying any perceptional services or delusions. Patient tolerated medications well and continues to want to go to an assisted living facility upon discharge. Review of Systems All other systems reviewed negative except as stated in HPI Mental Status Examination Appearance: Appropriate Consciousness: Alert Orientation: Person, Place Speech: Unremarkable Language: Adequate Fund of Knowledge: Inadequate Attention and Concentration: Adequate Memory: Unremarkable Mood: Good Affect: Appropriate Thought Process & Associations: Linear Thought Content: Appropriate Hallucination Type: None Delusion Type: Paranoid (slightly) Suicidal Ideation: No Suicidal Plan: No Suicidal Intention: No Homicidal Ideation: No Homicidal Plan: No Homicidal Intention: No Insight: Fair (improving) Judgment: Impulsive Assessment and Plan - Assessment (1) Acute exacerbation of chronic schizophrenia Code(s): F20.9 - Schizophrenia, unspecified Status: Acute - Plan Plan: Patient continues with improvement in mood, no longer noted to be internally preoccupied, compliant with medications, appropriate interactions during interview abnormal peers. Patient also less isolative and attending. Compliant with treatment. Continue to monitor mood and behavior. Discharge planning in progress. Justification for Continued Inpatient Stay: At risk of further decompensation a lower level of care.
[2018-04-18] MEDS: Insulin Detemir Inj 1,000 UNIT/10 ML Vial SQ SCH (21:07)
[2018-04-19] MEDS: Insulin NovoLOG Aspart Correctional Sugar Inj SQ SCH ×4 (07:22→20:57)
[2018-04-19] MEDS: Metoprolol Tartrate 25 MG Tablet PO SCH ×2 (09:47→20:54)
[2018-04-19] MEDS: Lisinopril 20 MG Tablet PO SCH ×2 (09:47→20:54)
[2018-04-19] MEDS: Potassium Chloride 10 MEQ ER Capsule PO SCH (09:49)
[2018-04-19] MEDS: Furosemide 20 MG Tablet PO SCH (09:49)
--- NOTE | 2018-04-19 12:09 | P.PNPSY ---
Subjective Remarks: Patient seen for follow, chart reviewed. Discussion nursing staff reported the patient has a compliant with medications, more visible on the unit and pleasant with staff. Patient found sitting hospital bed noted B, cooperative. Patient states that she is okay returning back home and she realizes that referral to an assisted living facility will require more time. Patient reports sleeping well, tolerating medications well without denying any adverse drug reactions. Patient denies any perceptional service of delusions at this time. Patient aware that she is scheduled for CBC tomorrow for weekly monitoring as she is on clozapine. Review of Systems All other systems reviewed negative except as stated in HPI Mental Status Examination Appearance: Appropriate Consciousness: Alert Orientation: Person, Place Speech: Unremarkable Language: Adequate Fund of Knowledge: Inadequate Attention and Concentration: Adequate Memory: Unremarkable Mood: Good Affect: Appropriate Thought Process & Associations: Intact, Linear Thought Content: Appropriate Hallucination Type: None Delusion Type: None Suicidal Ideation: No Suicidal Plan: No Suicidal Intention: No Homicidal Ideation: No Homicidal Plan: No Homicidal Intention: No Insight: Fair (improving) Judgment: Impulsive Assessment and Plan - Assessment (1) Acute exacerbation of chronic schizophrenia Code(s): F20.9 - Schizophrenia, unspecified Status: Acute - Plan Plan: Patient with continued improvement, denying any perceptional services or delusions. Patient scheduled for CBC tomorrow morning for weekly monitoring and will be discharged and taken to [facility] to fill prescriptions as well as provide transportation back to her residence with her uncle. Continue to monitor mood and behavior. Discharge planning a progress. Justification for Continued Inpatient Stay: At risk of further decompensation a lower level of care.
[2018-04-19] MEDS: Senna/Docusate Sodium 8.6/50 MG Tablet PO SCH ×2 (12:29→20:54)
[2018-04-19 17:32] VITALS: RESP 16
[2018-04-19] MEDS: Insulin Detemir Inj 1,000 UNIT/10 ML Vial SQ SCH (20:57)
[2018-04-20 04:39] VITALS: TEMP 98.3; O2SAT 98
[2018-04-20] MEDS: Insulin NovoLOG Aspart Correctional Sugar Inj SQ SCH ×3 (07:05→11:19)
[2018-04-20 08:02] LABS: Baso # (Auto) 0.1 th/mm3 (0.0-0.2); Baso % (Auto) 0.5 % (0.0-2.0); Eos # (Auto) 0.1 th/mm3 (0.0-0.4); Eos % (Auto) 0.7 % (0.0-4.0); Hematocrit 29.5 % (35.0-46.0); Hemoglobin 9.6 gm/dL (11.6-15.3); Lymph # (Auto) 3.8 th/mm3 (1.0-4.8); Lymph % (Auto) 31.8 % (9.0-44.0); Mean Corpuscular HGB Conc 32.8 % (32.0-36.0); Mean Corpuscular Hemoglobin 26.8 pg (27.0-34.0); Mean Corpuscular Volume 81.7 fL (80.0-100.0); Mean Platelet Volume 7.1 fL (7.0-11.0); Mono # (Auto) 0.5 th/mm3 (0.0-0.9); Mono % (Auto) 4.2 % (0.0-8.0); Neut # (Auto) 7.6 th/mm3 (1.8-7.7); Neut % (Auto) 62.8 % (16.0-70.0); Platelet Count 597 th/mm3 (150-450); Red Blood Count 3.61 mil/mm3 (4.00-5.30); Red Cell Distribution Width 13.9 % (11.6-17.2)
[2018-04-20 08:40] VITALS: BP 130/64; PULSE 113
[2018-04-20] MEDS: Metoprolol Tartrate 25 MG Tablet PO SCH (08:59)
[2018-04-20] MEDS: Senna/Docusate Sodium 8.6/50 MG Tablet PO SCH (09:00)
[2018-04-20] MEDS: Potassium Chloride 10 MEQ ER Capsule PO SCH (09:00)
[2018-04-20] MEDS: Furosemide 20 MG Tablet PO SCH (09:00)
[2018-04-20] MEDS: Lisinopril 20 MG Tablet PO SCH (09:00)
--- NOTE | 2018-04-20 15:09 | P.DSPSY ---
Psychiatry Discharge Summary Inpatient Psychiatric care?: Yes Advance Directives: No Mental Health Advance Directive: No Health Care Proxy: Yes - Admission Admission Date: March 26, 2018 11:03 - Admission Diagnosis (1) Acute exacerbation of chronic schizophrenia Code(s): F20.9 - Schizophrenia, unspecified Brief History: Patient is a 57 y/o woman, unknown marital status, with past psychiatric history of schizophrenia, one prior psychiatric admission, unknown prior suicide attempts or self injurious behavior, with past medical history of HTN, DM, who was recently discharged from medical floor due to DKA, seen by psychiatry during that admission is a consult was noted to be acutely psychotic and transferred to the inpatient psychiatry unit for further evaluation and management. Discussion nursing staff reported the patient seclusive to her room , refusing meds less evening, had poor sleep. Patient also had refuse morning meds. Patient was found sitting in hospital bed noted to be smiling inappropriately laughing at times to self and responding to internal stimuli during interview. Patient when seen previously. "I will be alright", states that she is significantly olanzapine and agrees to continue his medications here in the hospital and states that she would take "2 pills at night". Patient clubbing, thought blocking, internally preoccupied states that her last hospitalization was "a long time ago". Patient states that she has an outpatient provider, Alexis and that she was previously followed by Alexis [facility]. Patient was encouraged to continue treatment which she agreed when asked why she refused medications this morning patient states that she had reported taking. Past psychiatric history: Patient with psychiatric, previous suicide attempts over the behavior reports being followed by a 68 acting previously on clozapine. Past medical history: Hypertension diabetes Allergies: NKDA Social history: Patient as per chart domiciled with uncle and has a sister who may serve as health care surrogate. Several attempts have been made to contact family but unsuccessful up to now. Tobacco Use In Past 30 Days: No (its been a long time ago) How Often Do You Have a Drink Containing Alcohol: Never Hospital Course: Patient is a 57 y/o woman, unknown marital status, with past psychiatric history of schizophrenia, one prior psychiatric admission, unknown prior suicide attempts or self injurious behavior, with past medical history of HTN, DM, who was recently discharged from medical floor due to DKA, seen by psychiatry during that admission is a consult was noted to be acutely psychotic and transferred to the inpatient psychiatry unit for further evaluation and management. Patient was resumed on clozapine and titrated to 350mg daily along with medications for chronic medical illnesses which she tolerated medications well with minimal side effects. Patient was admitted to a locked, inpatient psychiatric unit. Appropriate precautions were in place throughout patient's hospital stay. Patient was seen and examined on the unit by psychiatry. Psychotropic medications were adjusted. There was no evidence of any suicidality or homicidality on the inpatient unit. Patient's psychotic symptoms improved with the benefit of psychopharmacologic treatment. Counselor has arranged for follow up appointments for continuity of care. On the day of discharge: Patient seen and examined; chart reviewed. Case discussed with nurse and counselor. No behavioral issues overnight. On my examination today, the patient is to be discharged back to [facility] home. She denies any suicidal or homicidal ideation, intent or plan on direct questioning and contracts for safety. I can elicit no mood symptoms. He denies any audiovisual hallucinations. No delusional material verbalized today. Patient denies any side effects from medications and has a good understanding of medication regimen. No physical complaints. Suicide and violence risk assessment on day of discharge both suggest lower imminent risk, and the patient's level of function is adequate for planned level of outpatient care. Patient has maximized benefit from this inpatient psychiatric hospital stay and will be discharged with follow-up as arranged by counselor. Patient advised to return to psychiatric emergency room for any concerning psychiatric symptoms. Patient agrees with plan. - Discharge Discharge Date: 04/20/18 - Discharge Diagnosis (1) Acute exacerbation of chronic schizophrenia Code(s): F20.9 - Schizophrenia, unspecified Status: Acute Discharge Disposition: Home - Discharge Instructions Discharge Diet: Heart Healthy Diet, Diabetic Diet - Discharge Time > 30 minutes Mental Status Examination Appearance: Appropriate Consciousness: Alert Orientation: Person, Place Speech: Unremarkable Language: Adequate Fund of Knowledge: Inadequate Attention and Concentration: Adequate Memory: Unremarkable Mood: Good Affect: Appropriate Thought Process & Associations: Intact, Goal directed, Linear Thought Content: Appropriate Hallucination Type: None Delusion Type: None Suicidal Ideation: No Suicidal Plan: No Suicidal Intention: No Homicidal Ideation: No Homicidal Plan: No Homicidal Intention: No Insight: Fair (improving) Judgment: Impulsive Discharge/Advance Care Plan - Results Vital Signs: Last Vital Signs Temp 98.3 F 04/20/18 04:38 Pulse 113 H 04/20/18 08:40 Resp 16 04/20/18 04:38 BP 130/64 04/20/18 08:40 Pulse Ox 98 04/20/18 04:38 Lab Results: Abnormal Lab Results 04/19/18 04/19/18 04/20/18 16:19 20:17 06:09 WBC RBC Hgb Hct MCV MCH MCHC RDW Plt Count MPV Neut % (Auto) Lymph % (Auto) [place] % (Auto) Eos % (Auto) Baso % (Auto) Neut # (Auto) Lymph # (Auto) [place] # (Auto) Eos # (Auto) Baso # (Auto) WBC Differential Differential Comment POC Glucose 200 H 197 H 159 H 04/20/18 04/20/18 06:57 11:14 WBC 12.0 H RBC 3.61 L Hgb 9.6 L Hct 29.5 L MCV 81.7 MCH 26.8 L MCHC 32.8 RDW 13.9 Plt Count 597 H MPV 7.1 Neut % (Auto) 62.8 Lymph % (Auto) 31.8 [place] % (Auto) 4.2 Eos % (Auto) 0.7 Baso % (Auto) 0.5 Neut # (Auto) 7.6 Lymph # (Auto) 3.8 [place] # (Auto) 0.5 Eos # (Auto) 0.1 Baso # (Auto) 0.1 WBC Differential . Differential Comment Auto diff final POC Glucose 160 H Laboratory Results Hemoglobin A1c 14.3 % (4.3-6.0) H 03/28/18 07:48 Triglycerides 132 mg/dL (42-150) 03/28/18 07:48 Cholesterol 154 mg/dL (120-200) 03/28/18 07:48 LDL Cholesterol, Calc 88 mg/dL (0-99) 03/28/18 07:48 HDL Cholesterol 39.4 mg/dL (40.0-60.0) L 03/28/18 07:48 Summary of Procedures: none Pending Results: None - Medications Number of antipsychotic medications at discharge: 1 - Discharge Care Plan Goals to Promote Your Health: * To prevent worsening of your condition and complications * To maintain your health at the optimal level Directions to Meet Your Goals: Take your medications as prescribed Follow your dietary instruction Follow activity as directed Keep your appointments as scheduled Take your immunizations and boosters as scheduled If your symptoms worsen call your PCP, if no PCP go to Urgent Care Center or Emergency Room For 28/03 questions related to your inpatient stay or results of tests pending at discharge, please contact Dr. Abrahan Arreaga MD at Smoking is Dangerous to Your Health. Avoid second hand smoking
== END 2018-04-20 12:40 | disposition home or self-care (01) ==
LOC: H4EA 11:03 → H260 04-07 12:03
PROVIDERS: ADMIT Student in an Organized Health Care Education/Training Program; ATTEND Student in an Organized Health Care Education/Training Program

== ENCOUNTER 2018-08-10 22:17 | Inpatient (IN) ==
[2018-08-10 23:32] LABS: Baso % (Auto) 0.2 % (0.0-2.0); Eos % (Auto) 0.3 % (0.0-4.0); Hematocrit 31.5 % (35.0-46.0); Hemoglobin 10.4 gm/dL (11.6-15.3); Lymph # (Auto) 3.5 th/mm3 (1.0-4.8); Lymph % (Auto) 50.2 % (9.0-44.0); Mean Corpuscular Hemoglobin 26.6 pg (27.0-34.0); Mean Corpuscular Volume 80.8 fL (80.0-100.0); Mono # (Auto) 0.5 th/mm3 (0.0-0.9); Mono % (Auto) 7.3 % (0.0-8.0); Neut # (Auto) 2.9 th/mm3 (1.8-7.7); Platelet Count 500 th/mm3 (150-450); Red Cell Distribution Width 14.9 % (11.6-17.2)
[2018-08-10 23:38] LABS: Amphetamine Screen,Urine Neg (Neg); Barbiturate Screen,Urine Neg (Neg); Cannabinoid Screen,Urine Neg (Neg); Cocaine Screen,Urine Neg (Neg)
[2018-08-10 23:44] LABS: Albumin 3.8 g/dL (3.4-5.0); Anion Gap 9 meq/L (5-15); Aspartate Aminotransferase 11 U/L (15-37); Blood Urea Nitrogen 13 mg/dL (7-18); Calcium 8.9 mg/dL (8.5-10.1); Carbon Dioxide 24.3 meq/L (21.0-32.0); Chloride 106 meq/L (98-107); Glomerular Filtration Rate 84 mL/min (>89); Glucose,Random 157 mg/dL (74-106); Magnesium 1.9 mg/dL (1.5-2.5); Sodium 139 meq/L (136-145)
[2018-08-10 23:45] LABS: Alanine Aminotransferase 12 U/L (10-53)
[2018-08-10 23:51] LABS: Opiate Screen,Urine Neg (Neg)
[2018-08-10 23:53] LABS: Alkaline Phosphatase 70 U/L (45-117)
--- NOTE | 2018-08-11 01:08 | ED ---
HPI General Chief Complaint: Psychiatric Symptoms Stated Complaint: psych eval/dbpd Time Seen by Provider: 08/10/18 22:37 Source: patient and police Mode of arrival: ambulatory Limitations: altered mental status History of Present Illness HPI Narrative: Patient presents to our facility under a Pak act by the [facility] [employer]. Patient sister called the police because patient has been unmedicated on her schizophrenia and bipolar medications for many many months. Tonight she started getting aggressive with the family due to thinking that demons were talking to her. Patient at this time states that she does not want to harm herself or others. Patient does admit to not taking her psychiatric medication for over 6 months. Patient's denies any other symptoms MD complaint: Reports altered mental status Onset (ago): unknown Duration: constant History of same: Yes Relieving factors: none Exacerbating factors: none Context: Reports not taking psychiatric medications; Denies recent alcohol abuse and recent drug abuse Associated psychiatric symptoms: Reports racing thoughts and auditory hallucinations Associated symptoms: Denies confusion, headache, shortness of breath, nausea, vomiting, syncope and insomnia Treatments prior to arrival: Reports none Related Data Home Medications Medication Instructions Recorded Confirmed No Known Home Medications 08/10/18 08/10/18 Allergies Allergy/AdvReac Type Severity Reaction Status Date / Time No Known Allergies Allergy Verified 03/23/18 17:28 Review of Systems ROS: all other systems reviewed are negative [facility], [facility] Social History Social History Substance History: No History of Abuse and Unable to Obtain Second Hand Smoke Exposure: No Smoking Status: Former smoker Tobacco Type: Cigarettes How Often Do You Have a Drink Containing Alcohol: Never Recent Travel in [facility] within the Last 8 Weeks: No Recent Out of Country Travel within the Last 8 Weeks: No Exam [facility] Head: normocephalic and atraumatic Nose: no nasal discharge and no epistaxis Mouth: moist mucous membranes Eyes Sclera: normal sclerae Pupils: PERRL Neck Neck: trachea midline and no JVD Resp Effort & Inspection: no use of accessory muscles Auscultation: clear to auscultation bilaterally Cardio Rate: regular rate Rhythm: regular rhythm Heart Sounds: no murmurs GI Inspection: non-distended Palpation: soft, no hepatosplenomegaly and nontender Skin General: dry skin (warm) Neuro General: alert and awake Cranial Nerves: other Speech: speech normal Motor: no movement abnormalities noted Extrem General: normal to inspection, no clubbing, no cyanosis and no edema Psych Mood: congruent mood Affect: normal affect Judgment: judgment good Course Initial Documented Vital Signs Temperature 98.3 F 08/10/18 22:29 Pulse Rate 108 H 08/10/18 22:29 Respiratory Rate 18 08/10/18 22:29 Blood Pressure 163/75 H 08/10/18 22:29 Pulse Oximetry 99 08/10/18 22:29 Last Documented Vital Signs Temperature 98.3 F 08/10/18 22:29 Pulse Rate 108 H 08/10/18 22:29 Respiratory Rate 18 08/10/18 22:29 Blood Pressure 163/75 H 08/10/18 22:29 Pulse Oximetry 99 08/10/18 22:29 Medical Decision Making MDM Narrative Medical decision making narrative: Patient presents to our facility under a Pak act by the [facility] [employer]. Patient sister called the police because patient has been unmedicated on her schizophrenia and bipolar medications for many many months. Tonight she started getting aggressive with the family due to thinking that demons were talking to her. Patient at this time states that she does not want to harm herself or others. Patient does admit to not taking her psychiatric medication for over 6 months. Patient's denies any other symptoms Blood pressure is 163/75. Pulse is 108. Temperature is 98.3 and O2 sat is 99 on room air Physical exam is unremarkable Patient received lab work including a drug screen. Lab work and drug screen are unremarkable Patient is medically cleared at 0 120 Await psychiatric evaluation in the morning Medical Screen Exam Complete: Yes Emergency Medical Condition: Yes Differential Diagnosis Differential Diagnosis: Bipolar, schizophrenia, auditory hallucinations, drug- induced psychosis, dementia Lab Data Result diagrams: 08/10/18 22:40 08/10/18 22:40 Lab Results 08/10/18 08/10/18 08/10/18 Range/Units 22:40 22:40 22:40 WBC 7.0 (4.0-11.0) th/mm3 RBC 3.90 L (4.00-5.30) mil/mm3 Hgb 10.4 L (11.6-15.3) gm/dL Hct 31.5 L (35.0-46.0) % MCV 80.8 (80.0-100.0) fL MCH 26.6 L (27.0-34.0) pg MCHC 33.0 (32.0-36.0) % RDW 14.9 (11.6-17.2) % Plt Count 500 H (150-450) th/mm3 MPV 8.0 (7.0-11.0) fL Prelim Diff (Auto) Duck Operator Neut % (Auto) 42.0 (16.0-70.0) % Lymph % (Auto) 50.2 H (9.0-44.0) % [place] % (Auto) 7.3 (0.0-8.0) % Eos % (Auto) 0.3 (0.0-4.0) % Baso % (Auto) 0.2 (0.0-2.0) % Neut # (Auto) 2.9 (1.8-7.7) th/mm3 Lymph # (Auto) 3.5 (1.0-4.8) th/mm3 [place] # (Auto) 0.5 (0.0-0.9) th/mm3 Eos # (Auto) 0.0 (0.0-0.4) th/mm3 Baso # (Auto) 0.0 (0.0-0.2) th/mm3 WBC Differential . Differential Comment Auto diff final Sodium (136-145) meq/L Potassium (3.5-5.1) meq/L Chloride (98-107) meq/L Carbon Dioxide (21.0-32.0) meq/L Anion Gap (5-15) meq/L BUN (7-18) mg/dL Creatinine (0.50-1.00) mg/dL Estimated GFR (>89) mL/min Random Glucose (74-106) mg/dL Calcium (8.5-10.1) mg/dL Magnesium (1.5-2.5) mg/dL Total Bilirubin (0.2-1.0) mg/dL AST (15-37) U/L ALT (10-53) U/L Alkaline Phosphatase (45-117) U/L Total Protein (6.4-8.2) g/dL Albumin (3.4-5.0) g/dL TSH (0.358-3.740) uIU/mL Salicylates Less than 1.7 L (2.8-20.0) mg/dL Urine Opiates Screen (Neg) Acetaminophen (10.0-30.0) mcg/mL Ur Barbiturates Screen (Neg) Ur Amphetamines Screen (Neg) U Benzodiazepines Scrn (Neg) [place] Less than 0.1 L (0.5-1.5) meq/L Urine Cocaine Screen (Neg) U Cannabinoids Screen (Neg) Serum Alcohol (0-5) mg/dL 08/10/18 08/10/18 Range/Units 22:40 22:55 WBC (4.0-11.0) th/mm3 RBC (4.00-5.30) mil/mm3 Hgb (11.6-15.3) gm/dL Hct (35.0-46.0) % MCV (80.0-100.0) fL MCH (27.0-34.0) pg MCHC (32.0-36.0) % RDW (11.6-17.2) % Plt Count (150-450) th/mm3 MPV (7.0-11.0) fL Prelim Diff (Auto) Neut % (Auto) (16.0-70.0) % Lymph % (Auto) (9.0-44.0) % [place] % (Auto) (0.0-8.0) % Eos % (Auto) (0.0-4.0) % Baso % (Auto) (0.0-2.0) % Neut # (Auto) (1.8-7.7) th/mm3 Lymph # (Auto) (1.0-4.8) th/mm3 [place] # (Auto) (0.0-0.9) th/mm3 Eos # (Auto) (0.0-0.4) th/mm3 Baso # (Auto) (0.0-0.2) th/mm3 WBC Differential Differential Comment Sodium 139 (136-145) meq/L Potassium 3.0 L (3.5-5.1) meq/L Chloride 106 (98-107) meq/L Carbon Dioxide 24.3 (21.0-32.0) meq/L Anion Gap 9 (5-15) meq/L BUN 13 (7-18) mg/dL Creatinine 0.84 (0.50-1.00) mg/dL Estimated GFR 84 L (>89) mL/min Random Glucose 157 H (74-106) mg/dL Calcium 8.9 (8.5-10.1) mg/dL Magnesium 1.9 (1.5-2.5) mg/dL Total Bilirubin 0.5 (0.2-1.0) mg/dL AST 11 L (15-37) U/L ALT 12 (10-53) U/L Alkaline Phosphatase 70 (45-117) U/L Total Protein 8.0 (6.4-8.2) g/dL Albumin 3.8 (3.4-5.0) g/dL TSH 2.750 (0.358-3.740) uIU/mL Salicylates (2.8-20.0) mg/dL Urine Opiates Screen Neg (Neg) Acetaminophen Less than 2.0 L (10.0-30.0) mcg/mL Ur Barbiturates Screen Neg (Neg) Ur Amphetamines Screen Neg (Neg) U Benzodiazepines Scrn Neg (Neg) [place] (0.5-1.5) meq/L Urine Cocaine Screen Neg (Neg) U Cannabinoids Screen Neg (Neg) Serum Alcohol Less than 3 (0-5) mg/dL Discharge Plan Discharge Disposition Patient Disposition: Sign Out(ED Internal Use Only) Discharge Condition Condition: Stable Discharge Details Diagnosis: Chronic schizophrenia, Acute psychosis Physicians Team ED Provider: Mau Thompson ED Midlevel Provider: Hermelinda Gonzalez Primary Care Provider: Primary Care Juana Castillo Rxs /Orders / Referrals /Forms Prescriptions: No Action No Known Home Medications RF: 0 Status ED Status: With Doctor
[2018-08-11] MEDS ORDERED: Acetaminophen 325 MG Tablet PO PRN (09:54)
[2018-08-11] MEDS ORDERED: Aluminum/Magnesium/Simethacone Susp 30 ML UDC PO PRN (09:54)
[2018-08-11] MEDS ORDERED: Dextrose 50% in Water 50 ML Vial IV.PUSH PRN (10:09)
[2018-08-11] MEDS ORDERED: Haloperidol 5 MG Tablet PO SCH (10:15)
--- NOTE | 2018-08-11 10:31 | P.PNPSY ---
This is a 57-year-old female who is known to this facility and department with an admission over the summer. She presents under a police initiated Pak Act for aggressive behavior towards her family. They report that she has not been compliant with any of her medications since shortly after she was discharged. Patient is disorganized, internally stimulated, with an incongruent mood and affect. She reports that she is happy but her affect is angry and irritable. She is referring to herself in the third person, when asked if she has been taking her medications she responds, "does Maulik look like she needs medication?" Patient was overheard carrying on a lengthy conversation while in the room alone. Consent was obtained from her sister by phone, Maritza.
[2018-08-11] MEDS ORDERED: Haloperidol Inj 5 MG/ML Ampul IM SCH (11:00)
[2018-08-11] MEDS: Insulin NovoLIN Regular Correctional Sugar Inj SQ SCH ×3 (11:45→20:15)
--- NOTE | 2018-08-11 17:53 | P.CONIM ---
History of Present Illness Service: Hospitalist Consult date: 08/11/18 Requesting Physician: Mami Bear Reason for Consult: Medical management Primary Care Provider: No Primary Care Physician Chief Complaint: Denies illness History of Present Illness: Patient is a [age]-year-old -German female with a past medical history of diabetes and hypertension who is admitted for confusion and psychiatric disturbance. She has had multiple admissions for similar most recently in April 2018. Hospitalist service has been consulted for medical management. Patient is seen lying quietly in bed. She tells me that she feels good and that she has no medical problems. Nursing denies any adverse events. Review of Systems Review of Systems: all other systems reviewed are negative [facility] Medical History Medical History Diabetes (Acute) HTN (hypertension) (Acute) Patient denies medical problems (Acute) Surgical History Surgical History No history of previous surgery (Acute) Social History Social History Substance History: No History of Abuse Second Hand Smoke Exposure: No Smoking Status: Never smoker Tobacco Type: Cigarettes How Often Do You Have a Drink Containing Alcohol: Monthly or less Recent Travel in [facility] within the Last 8 Weeks: No Recent Out of Country Travel within the Last 8 Weeks: No Immunization History Tetanus Immunization: Unable to Assess Hx Influenza Vaccine This Season: No Medications and Allergies Allergies Allergy/AdvReac Type Severity Reaction Status Date / Time No Known Allergies Allergy Verified 03/23/18 17:28 Home Medications Medication Instructions Recorded Confirmed Type No Known Home Medications 08/10/18 08/10/18 History Active Medications: Active Medications Acetaminophen (Tylenol) 650 mg PO Q4H PRN PRN Reason: Pain 1-5 or Temp >101F Al Hydrox/Mg Hydrox/Simethicone (Mag-Al Plus Susp Liq) 30 ml PO Q6H PRN PRN Reason: DYSPEPSIA Al Hydroxide/Mg Hydroxide (Milk Of Magnesia Liq) 30 ml PO Q12H PRN PRN Reason: Mild Constipation Dextrose (D50w Vial) 50 ml IV.PUSH UNSCH PRN PRN Reason: PER HYPOGLYCEMIA PROTOCOL Diphenhydramine HCl (Benadryl) 50 mg PO HS PRN PRN Reason: INSOMNIA Glucagon (Glucagon Inj) 1 mg OTHER PRN PRN PRN Reason: for Hypoglycemia Protocol Haloperidol (Haldol) 5 mg PO BID [facility] Last Admin: 08/11/18 10:37 Dose: 5 mg Haloperidol Lactate (Haldol Inj) 5 mg IM BID [facility] Last Admin: 08/11/18 12:10 Dose: 5 mg Insulin Human Regular (Novolin R Correctional Sugar Inj) 0 units SQ ACHS [facility]; Protocol Last Admin: 08/11/18 17:16 Dose: Not Given Physical Exam Vital signs: Last Vital Signs Temp 98.2 F 08/11/18 10:35 Pulse 78 08/11/18 10:35 Resp 18 08/11/18 10:35 BP 188/84 H 08/11/18 10:35 Pulse Ox 100 08/11/18 10:35 Intake & Output 08/09/18 08/10/18 08/11/18 08/12/18 06:59 06:59 06:59 06:59 Weight 97.069 kg 84.3 kg Narrative: GENERAL: Well-nourished, well-developed adult female in no obvious distress. SKIN: Warm and dry. HEAD: Atraumatic. Normocephalic. CARDIOVASCULAR: Regular rate and rhythm. RESPIRATORY: No accessory muscle use. Clear to auscultation. Breath sounds equal bilaterally. GASTROINTESTINAL: Abdomen soft, non-tender, non-distended. Positive bowel sounds. MUSCULOSKELETAL: Mild edema bilateral ankles. No obvious deformities. NEUROLOGICAL: Awake and alert. No obvious cranial nerve deficits. Motor grossly within normal limits. Normal speech. Results Labs CBC & Chem 7: 08/10/18 22:40 08/10/18 22:40 Assessment and Plan Plan Patient is a [age]-year-old -German female with a past medical history of diabetes and hypertension who is admitted for confusion and psychiatric disturbance. Acute psychosis -Managed by psychiatry Hypertension -Was previously on lisinopril 20 mg, will restart Diabetes -Sliding scale Hypokalemia -Replace and monitor History of frequent UTI -UA with culture ordered Anemia -Chronic; monitor -Iron profile ordered DVT prophylaxis: Ambulatory Thank you for this consult. We look forward to assisting in the medical management of this patient.
[2018-08-11] MEDS: Haloperidol 5 MG Tablet PO SCH (20:14)
[2018-08-11] MEDS ORDERED: Haloperidol Inj 5 MG/ML Ampul IM PRN (21:00)
[2018-08-12] MEDS: Insulin NovoLIN Regular Correctional Sugar Inj SQ SCH ×4 (08:06→20:23)
[2018-08-12] MEDS ORDERED: Lisinopril 20 MG Tablet PO SCH (09:00)
[2018-08-12] MEDS: Haloperidol 5 MG Tablet PO SCH ×2 (09:08→20:29)
[2018-08-12] MEDS: Lisinopril 20 MG Tablet PO SCH (09:08)
[2018-08-12 10:57] LABS: Calcium 8.6 mg/dL (8.5-10.1); Carbon Dioxide 29.8 meq/L (21.0-32.0); Magnesium 1.9 mg/dL (1.5-2.5); Potassium 3.4 meq/L (3.5-5.1)
[2018-08-12 10:58] LABS: % Iron Saturation 20.4 % (20-50)
[2018-08-12 11:00] LABS: Chol/HDL Ratio 4.01 Ratio; HDL Cholesterol 44.3 mg/dL (40.0-60.0)
[2018-08-12] MEDS: amLODIPine 5 MG Tablet PO SCH (12:30)
[2018-08-12 14:53] LABS: Bacteria,Urine Rare /hpf; Bilirubin,Urine Negative (Negative); Clarity,Urine Clear (Clear); Color,Urine Yellow (Yellw/Straw); Glucose,Urine (UA) Negative (Negative); Leukocyte Esterase,Urine Negative (Negative); Mucus,Urine Few /lpf (Occasional); Nitrite,Urine Negative (Negative); Specific Gravity,Urine 1.016 (1.002-1.035); Squamous Epithelial Cell,Urine 3 /hpf (0-5)
--- NOTE | 2018-08-12 14:59 | P.HPPSY ---
Provisional Diagnosis Admission Date: August 11, 2018 09:53 [place] I.: Schizophrenia chronic paranoid type Competence Certification of Person's Competence To Provide Express and Informed Consent I have personally examined Maulik Diaz, a person being served at [facility] on, August 12, 2018 1457. Express and informed consent means consent voluntarily given in writing, by a competent person, after sufficient explanation and disclosure of the subject matter involved to enable the person to make a knowing and willful decision without any element of force, fraud, deceit, duress, or other form of constraint or coercion. This person is 18 years of age or older, is not now known to be incompetent to consent to treatment with a guardian advocate, and does not have a health care surrogate or proxy currently making medical treatment decisions. I have found this person to be one of the following: [] Competent to provide express and informed consent, as defined above, for voluntary admission to this facility and is competent to provide express and informed consent for treatment. He/she has the consistent capacity to make well reasoned, willful, and knowing decisions concerning his or her medical or mental health treatment. The person fully and consistently understands the purpose of the admission for examination/placement and is fully capable of personally exercising all rights assured [place]] Incompetent to provide express and informed consent to voluntary admission, and this is incompetent to provide express and informed consent to treatment. The person must be transferred to involuntary status and a petition for a guardian advocate filed with the Circuit Court. [] Refusing to provide express and informed consent to voluntary admission but is competent to provide express and informed consent for treatment. The person must be discharged or transferred to involuntary status. Form shall be completed within 24 hours of a person's arrival at the receiving facility and filed in the clinical record of each person: 1. Admitted on a voluntary basis 2. Permitted to provide express and informed consent to his/her own treatment 3. Allowed to transfer from involuntary to voluntary status 4. Prior to permitting a person to consent to his or her own treatment after having been previously found incompetent to consent to treatment. History of Present Illness Capacity: Lacks capacity History of Present Illness: Patient is a 57-year-old -Northern [place] female well known to us multiple prior visits comes here under Pak act by the [facility] Department dated 08/10/2018 at 2202 hrs. that document reviewed and agreed with it is essentially stating Jun is diagnosed with bipolar disorder and schizophrenia W has not taken her medication for approximately 3 months diabetes currently speaking with parish and that in the current mental state care for herself W's family. Without treatment she will be a threat to herself and others. Patient seen screen in the ED medically cleared, urine toxicology negative. At the present time patient sitting quietly in her bed in her room nurse Kristi present throughout session. Patient and tense with intense eye contact stating that she is the supreme being and that she points up to this isha. She states that she talks to the supreme being. That she does not have a mental illness that she does not need medication. Of interest to respond somewhat more appropriately when refer to her in the third person as Akosua's or the supreme being. She appears to be responding to internal stimuli. Patient was hospitalized here in March of this year under Dr. Arreaga for similar presentation she was placed for a while but appears Clazuril but she has stopped that. She is placed on Haldol 5 mg twice daily by the nurse practitioner. I do agree with that. At this time patient does not meet criteria for involuntary psychiatric hospitalization. I will do first opinion request second opinion for which she does not have capacity last healthcare surrogate guardian advocate it appears in the past the patient's sister has been the healthcare surrogate. Hopefully to be fairly short stay and returned her to her family - Inpatient Certification I certify that the inpatient services were ordered in accordance with Medicare regulations governing the order. This includes certification that hospital inpatient services are reasonable and necessary and in the case of services not specified as inpatient-only under 42 CFR 419.22(n), that they are appropriately provided as inpatient services in accordance to with the 2-midnight benchmark under 43 CFR 412.3(e) I certify that inpatient psychiatric hospital services are medically necessary. Evaluation and treatment and/or diagnostic testing are expected to improve the patient's condition. The patient needs on a daily basis, active treatment furnished directly by or requiring the supervision of inpatient psychiatric facility personnel. Estimated Total Length of Stay (Days): 7 Plans for Post Hospital Care: Home Review of Systems All other systems reviewed negative except as stated in HPI PMFSH - History History Provided By: Patient, Medical Record - Medical History Medical History: Medical History (Last Reviewed 08/12/18 @ 15:01 by Vasquez Dsouza MD) Diabetes HTN (hypertension) Patient denies medical problems - Surgical History Surgical History: Surgical History (Last Reviewed 08/12/18 @ 15:01 by Vasquez Dsouza MD) No history of previous surgery - Family History Family History: Family History (Last Reviewed 08/12/18 @ 15:01 by Vasquez Dsouza MD) Other Family history unobtainable due to patient's condition - Social History I have reviewed the patient's Social History: Yes - Tobacco History Second Hand Smoke Exposure: No Tobacco Use In Past 30 Days: No Smoking Status: Never smoker Tobacco Type: Cigarettes - Alcohol History How Often Do You Have a Drink Containing Alcohol: Monthly or less - Substance Use History Substance History: No History of Abuse - Travel History Recent Travel in the USA Within the Last 8 Weeks: No Recent Travel Out of the Country Within the Last 8 Weeks: No - Immunization History Tetanus Immunization: Unable to Assess Hx Influenza Vaccine This Season: No Quality Measures - Psychiatric History Psychological trauma history: Patient denies a questionable accuracy due to patient's psychosis Violence risk to others in the last 6 months: Patient becoming more aggressive at home with family Violence risk to self in the last 6 months: Patient denies though questions the accuracy due to her psychosis - Substance Abuse History Drug or alcohol use in the past 12 months: Patient denies - Patient Strengths Patient's strengths (minimum of 2): Patient verbal able [facility] appears to have supportive family Medications and Allergies Active Medications: Active Medications Acetaminophen (Tylenol) 650 mg PO Q4H PRN PRN Reason: Pain 1-5 or Temp >101F Al Hydrox/Mg Hydrox/Simethicone (Mag-Al Plus Susp Liq) 30 ml PO Q6H PRN PRN Reason: DYSPEPSIA Al Hydroxide/Mg Hydroxide (Milk Of Magnesia Liq) 30 ml PO Q12H PRN PRN Reason: Mild Constipation Al Hydroxide/Mg Hydroxide (Milk Of Magnesia Liq) 30 ml PO Q12H PRN PRN Reason: Mild Constipation Amlodipine Besylate (Norvasc) 5 mg PO DAILY [facility] Last Admin: 08/12/18 12:30 Dose: Not Given Dextrose (D50w Vial) 50 ml IV.PUSH UNSCH PRN PRN Reason: PER HYPOGLYCEMIA PROTOCOL Diphenhydramine HCl (Benadryl) 50 mg PO HS PRN PRN Reason: INSOMNIA Glucagon (Glucagon Inj) 1 mg OTHER PRN PRN PRN Reason: for Hypoglycemia Protocol Haloperidol (Haldol) 5 mg PO BID [facility] Last Admin: 08/12/18 09:08 Dose: 5 mg Haloperidol Lactate (Haldol Inj) 5 mg IM BID PRN PRN Reason: IF PT REFUSES PO HALDOL Insulin Human Regular (Novolin R Correctional Sugar Inj) 0 units SQ ACHS [facility]; Protocol Last Admin: 08/12/18 12:00 Dose: Not Given Lisinopril (Prinivil) 20 mg PO DAILY [facility] Last Admin: 08/12/18 09:08 Dose: 20 mg Allergies Allergy/AdvReac Type Severity Reaction Status Date / Time No Known Allergies Allergy Verified 03/23/18 17:28 Home Medications Medication Instructions Recorded Confirmed Type No Known Home Medications 08/10/18 08/10/18 History Results - Labs CBC & Chem 7: 08/10/18 22:40 08/12/18 10:05 Labs: Laboratory Results - last 24 hr 08/12/18 08/12/18 10:05 11:40 Sodium 140 Potassium 3.4 L Chloride 106 Carbon Dioxide 29.8 Anion Gap 4 L BUN 12 Creatinine 0.97 Estimated GFR 71 L POC Glucose 142 H Random Glucose 154 H Calcium 8.6 Magnesium 1.9 Iron 50 TIBC 245 L % Saturation 20.4 Triglycerides 121 Cholesterol 178 LDL Cholesterol, Calc 110 H HDL Cholesterol 44.3 Cholesterol/HDL Ratio 4.01 Exam Vital signs: Vital Signs 08/12/18 06:00 Temperature 98.1 F Pulse Rate 92 H Respiratory Rate 18 Blood Pressure 164/83 H Pulse Oximetry 100 Intake & Output 08/11/18 08/12/18 08/12/18 18:59 06:59 18:59 Weight 84.3 kg Other: Weight On Admission 84.3 kg Narrative: Patient is seen in her room with nurse Kristi, patient no acute distress, patient no respiratory distress, no complaints of chest pain or abdominal pain. Patient moving all 4 extremities without difficulty Mental Status Examination Appearance: Appropriate, Disheveled Consciousness: Alert Orientation: Person, Place Motor Activity: Other (Patient laying down the moving all 4 extremities) Speech: Pressured, Rapid Language: Adequate Fund of Knowledge: Inadequate Attention and Concentration: Adequate (Poor) Memory: Impaired Mood: Angry, Manic Affect: Other (Increased range and intensity) Thought Process & Associations: Loose associations Thought Content: Bizarre thinking, Delusional Hallucination Type: Auditory (Vague) Delusion Type: Paranoid Suicidal Ideation: No Suicidal Plan: No Suicidal Intention: No Homicidal Ideation: No Homicidal Plan: No Homicidal Intention: No Insight: Poor Judgment: Poor Assessment and Plan - Plan Plan: Estimated LOS: [] days Patient is quite psychotic and delusional, reluctantly compliant medication at this time the patient meets criteria for involuntary hospitalization, after she does not have capacity will ask for healthcare surrogate and guardian advocate. Justification for Continued Inpatient Stay: At this time patient with decompensated placed on a lower level of care Discharge Planning: To be determined Request Healthcare Surrogate/Guardian Advocate?: Yes
--- NOTE | 2018-08-12 15:26 | P.PNIM ---
Subjective Interval history: Patient seen in day room. Tells me that she is fine and she does not need my help. Tells me that "your name is Christa and you need to go up a lady down the gil". Nursing reports no adverse events and that she is taking her medications. Physical Exam Vital signs: Last Vital Signs Temp 98.1 F 08/12/18 06:00 Pulse 92 H 08/12/18 06:00 Resp 18 08/12/18 06:00 BP 164/83 H 08/12/18 06:00 Pulse Ox 100 08/12/18 06:00 Intake & Output 08/10/18 08/11/18 08/12/18 08/13/18 06:59 06:59 06:59 06:59 Weight 97.069 kg 84.3 kg Narrative: Narrative: GENERAL: Well-nourished, well-developed adult female in no obvious distress. SKIN: Warm and dry. CARDIOVASCULAR: Regular rate and rhythm. RESPIRATORY: No accessory muscle use. Clear to auscultation. Breath sounds equal bilaterally. MUSCULOSKELETAL: Mild edema bilateral ankles. No obvious deformities. NEUROLOGICAL: Awake and alert. No obvious cranial nerve deficits. Motor grossly within normal limits. Normal speech. Results Labs CBC & Chem 7: 08/10/18 22:40 08/12/18 10:05 Assessment and Plan Plan Patient is a 57-year-old -[place] female with a past medical history of diabetes and hypertension who is admitted for confusion and psychiatric disturbance. Acute psychosis/schizophrenia -Managed by psychiatry Hypertension -Was previously on lisinopril 20 mg, will restart -add Norvasc 5 mg for additional control Diabetes -Sliding scale Hypokalemia -Replace and monitor History of frequent UTI -UA with culture ordered -not yet collected Anemia -Chronic; monitor -Iron profile ordered -borderline. Encourage iron rich foods. DVT prophylaxis: Ambulatory Progress Note: Quality VTE Deep Vein Thrombosis/Pulmonary Embolism Present on Admission: No
--- NOTE | 2018-08-12 20:58 | ECG ---
Date Performed: 08/12/2018 Time Performed: 08:51:16 PTAGE: 57 years EKG: Sinus rhythm POOR R WAVE PROGRESSION, CANNOT EXCLUDE SEPTAL INFARCT VS LEAD PLACEMENT Compared to previous tracin g, Left axis deviation is no longer present ABNORMAL ECG PREVIOUS TRACING : 04/07/2018 18.20 DOCTOR: Lito Krishnamurthy Interpretating Date/Time 08/12/2018 20:57:02
[2018-08-13] MEDS: Insulin NovoLIN Regular Correctional Sugar Inj SQ SCH ×4 (07:42→20:49)
[2018-08-13] MEDS: amLODIPine 5 MG Tablet PO SCH (09:16)
[2018-08-13] MEDS: Haloperidol 5 MG Tablet PO SCH ×2 (09:17→20:38)
[2018-08-13] MEDS: Lisinopril 20 MG Tablet PO SCH (09:17)
--- NOTE | 2018-08-13 12:01 | P.CONPSY ---
Provisional Diagnosis Admission Date: August 11, 2018 09:53 [place] I.: Schizophrenia chronic paranoid type History of Present Illness Service: Psychiatry Consult date: 08/13/18 Reason for Consult: 2nd Opinion Primary Care Provider: No Primary Care Physician Chief Complaint: Im wonderful!! History of Present Illness: Pt seen and discussed with staff. Chart reviewed. Pt is a 57 YOWF with a hx of paranoid schizophrenia who was admitted under a BA alleging non compliance wtih medications and psychosis. RN states that pt's sister called and reported that pt had been non compliant with medications after last psych admission and has been aggressive at home due to psychosis. RN reports that yesterday pt was speaking in 3rd person and believes that she is "The [place] Being". She also accused RN of being on row. She was started on haldol 5mg po BID and today RNs report that pt has been cooperative with care and less agitated and thought process has been more organized. She is tolerating Haldol without side effects. She states that medication is helping and she doesn't mind taking it. She states that people in her life have been replaced and that her sister is not really her sister. "Who is she? That is the question!" She is childlike and disorganized. She tries to grab MD in a bear hug and then laughs hysterically. [facility] - History History Provided By: Patient, Medical Record - Medical History Medical History: Medical History (Last Reviewed 08/13/18 @ 19:08 by Soniya Hanson MD) Diabetes HTN (hypertension) Patient denies medical problems - Surgical History Surgical History: Surgical History (Last Reviewed 08/13/18 @ 19:08 by Soniya Hanson MD) No history of previous surgery - Family History Family History: Family History (Last Reviewed 08/13/18 @ 19:08 by Soniya Hanson MD) Other Family history unobtainable due to patient's condition - Social History I have reviewed the patient's Social History: Yes - Tobacco History Second Hand Smoke Exposure: No Tobacco Use In Past 30 Days: No Smoking Status: Never smoker Tobacco Type: Cigarettes - Alcohol History How Often Do You Have a Drink Containing Alcohol: Monthly or less - Substance Use History Substance History: No History of Abuse - Travel History Recent Travel in the USA Within the Last 8 Weeks: No Recent Travel Out of the Country Within the Last 8 Weeks: No - Immunization History Tetanus Immunization: Unable to Assess Hx Influenza Vaccine This Season: No Medications and Allergies Active Medications: Active Medications Acetaminophen (Tylenol) 650 mg PO Q4H PRN PRN Reason: Pain 1-5 or Temp >101F Al Hydrox/Mg Hydrox/Simethicone (Mag-Al Plus Susp Liq) 30 ml PO Q6H PRN PRN Reason: DYSPEPSIA Al Hydroxide/Mg Hydroxide (Milk Of Magnesia Liq) 30 ml PO Q12H PRN PRN Reason: Mild Constipation Al Hydroxide/Mg Hydroxide (Milk Of Magnesia Liq) 30 ml PO Q12H PRN PRN Reason: Mild Constipation Amlodipine Besylate (Norvasc) 5 mg PO DAILY [facility] Last Admin: 08/13/18 09:16 Dose: 5 mg Dextrose (D50w Vial) 50 ml IV.PUSH UNSCH PRN PRN Reason: PER HYPOGLYCEMIA PROTOCOL Diphenhydramine HCl (Benadryl) 50 mg PO HS PRN PRN Reason: INSOMNIA Last Admin: 08/12/18 20:29 Dose: 50 mg Glucagon (Glucagon Inj) 1 mg OTHER PRN PRN PRN Reason: for Hypoglycemia Protocol Haloperidol (Haldol) 5 mg PO BID [facility] Last Admin: 08/13/18 09:17 Dose: 5 mg Haloperidol Lactate (Haldol Inj) 5 mg IM BID PRN PRN Reason: IF PT REFUSES PO HALDOL Insulin Human Regular (Novolin R Correctional Sugar Inj) 0 units SQ ACHS [facility]; Protocol Last Admin: 08/13/18 07:42 Dose: 1 units Lisinopril (Prinivil) 20 mg PO DAILY [facility] Last Admin: 08/13/18 09:17 Dose: 20 mg Allergies Allergy/AdvReac Type Severity Reaction Status Date / Time No Known Allergies Allergy Verified 03/23/18 17:28 Home Medications Medication Instructions Recorded Confirmed Type No Known Home Medications 08/10/18 08/10/18 History Exam Vital signs: Vital Signs 08/12/18 16:55 08/13/18 06:06 Temperature 98.3 F 98.3 F Pulse Rate 90 88 Respiratory Rate 17 17 Blood Pressure 169/77 H 146/74 H Pulse Oximetry 99 100 Mental Status Examination Appearance: Appropriate, Disheveled Consciousness: Alert Orientation: Person, Place Motor Activity: Other (Patient laying down the moving all 4 extremities) Speech: Pressured, Rapid Language: Adequate Fund of Knowledge: Inadequate Attention and Concentration: Easily distracted Memory: Impaired Mood: Manic Affect: Labile Thought Process & Associations: Loose associations Thought Content: Bizarre thinking, Delusional Hallucination Type: Auditory (Vague) Delusion Type: Paranoid, Other (body doubles) Suicidal Ideation: No Suicidal Plan: No Suicidal Intention: No Homicidal Ideation: No Homicidal Plan: No Homicidal Intention: No Insight: Poor Judgment: Poor Assessment and Plan - Plan Plan: Estimated LOS: [] I agree pt meets criteria for involuntary hospitalization. 2nd opinion completed Justification for Continued Inpatient Stay: psychosis Request Healthcare Surrogate/Guardian Advocate?: Yes
[2018-08-13 12:05] LABS: Hemoglobin A1c 7.7 % (4.3-6.0)
--- NOTE | 2018-08-13 14:13 | P.PNIM ---
Subjective Interval history: Patient refuses to talk to me today. Nursing reports no adverse event Physical Exam Vital signs: Last Vital Signs Temp 98.3 F 08/13/18 06:06 Pulse 88 08/13/18 06:06 Resp 17 08/13/18 06:06 BP 146/74 H 08/13/18 06:06 Pulse Ox 100 08/13/18 06:06 Intake & Output 08/11/18 08/12/18 08/13/18 08/14/18 06:59 06:59 06:59 06:59 Weight 97.069 kg 84.3 kg Narrative: Narrative: GENERAL: Well-nourished, well-developed adult female in no obvious distress. SKIN: Warm and dry. CARDIOVASCULAR: Regular rate and rhythm. RESPIRATORY: No accessory muscle use. Clear to auscultation. Breath sounds equal bilaterally. MUSCULOSKELETAL: Mild edema bilateral ankles. No obvious deformities. NEUROLOGICAL: Awake and alert. No obvious cranial nerve deficits. Motor grossly within normal limits. Normal speech. Results Labs CBC & Chem 7: 08/10/18 22:40 08/12/18 10:05 Assessment and Plan Plan Patient is a 57-year-old -Guyanese female with a past medical history of diabetes and hypertension who is admitted for confusion and psychiatric disturbance. Acute psychosis/schizophrenia -Managed by psychiatry Hypertension -Was previously on lisinopril 20 mg, will restart -add Norvasc 5 mg for additional control Diabetes -Sliding scale Hypokalemia -Replace and monitor History of frequent UTI -UA - negative Anemia -Chronic; monitor -Iron profile ordered -borderline. Encourage iron rich foods. DVT prophylaxis: Ambulatory Patient appears to be medically stable at this time. Hospitalist service will sign off, please reconsult if needed. Progress Note: Quality VTE Deep Vein Thrombosis/Pulmonary Embolism Present on Admission: No
[2018-08-14] MEDS: Insulin NovoLIN Regular Correctional Sugar Inj SQ SCH ×4 (08:55→20:39)
[2018-08-14] MEDS: Haloperidol 5 MG Tablet PO SCH ×2 (08:58→20:29)
[2018-08-14] MEDS: Lisinopril 20 MG Tablet PO SCH (08:58)
[2018-08-14] MEDS: amLODIPine 5 MG Tablet PO SCH (08:58)
--- NOTE | 2018-08-14 12:55 | P.PNPSY ---
Subjective Remarks: Patient is seen in her room with floor staff, chart reviewed, patient compliant medication. Patient is showing improvement in her mood and affect. She is less irritable though she she continues to acknowledge speaking to the "supreme being". She now denies that she is the "supreme being". She is still somewhat vague about placement. At home she may be living with. For now continue treatment Review of Systems All other systems reviewed negative except as stated in HPI Mental Status Examination Appearance: Appropriate, Disheveled Consciousness: Alert Orientation: Person, Place Motor Activity: Other (Patient laying down the moving all 4 extremities) Speech: Pressured (Slightly improved), Rapid (Slightly improved) Language: Adequate Fund of Knowledge: Inadequate Attention and Concentration: Easily distracted Memory: Impaired Mood: Manic Affect: Other (Slight increased range and intensity) Thought Process & Associations: Loose associations Thought Content: Bizarre thinking, Delusional Hallucination Type: Auditory (Vague) Delusion Type: Paranoid, Other (body doubles) Suicidal Ideation: No Suicidal Plan: No Suicidal Intention: No Homicidal Ideation: No Homicidal Plan: No Homicidal Intention: No Insight: Poor Judgment: Poor Assessment and Plan - Plan Plan: Patient remains quite psychotic paranoid and delusional. Compliant medication. Continue treatment Justification for Continued Inpatient Stay: At this time patient would decompensated placed in a lower level of care Discharge Planning: To be determined Request Healthcare Surrogate/Guardian Advocate?: Yes
[2018-08-15] MEDS: Insulin NovoLIN Regular Correctional Sugar Inj SQ SCH ×4 (07:14→20:22)
[2018-08-15] MEDS: amLODIPine 5 MG Tablet PO SCH (08:00)
[2018-08-15] MEDS: Lisinopril 20 MG Tablet PO SCH (08:00)
[2018-08-15] MEDS: Haloperidol 5 MG Tablet PO SCH ×2 (08:00→20:24)
--- NOTE | 2018-08-15 13:02 | P.PNPSY ---
Subjective Remarks: Patient seen in her room with nurse Jennyfer, chart reviewed, patient compliant medication. Patient somewhat more focused today she is less distractible more spontaneous with her responses. Denies voices or visions denies suicidality or homicidality. States she is willing to be compliant with her medications follow -up outpatient psychiatric services. For now continue treatment Review of Systems All other systems reviewed negative except as stated in HPI Mental Status Examination Appearance: Appropriate Consciousness: Alert Orientation: Person, Place, Situation Motor Activity: Normal gait Speech: Pressured (Slightly improved), Rapid (Slightly improved) Language: Adequate Fund of Knowledge: Inadequate Attention and Concentration: Easily distracted Memory: Impaired Mood: Other (Euthymic to somewhat restricted) Affect: Other (Good range and intensity) Thought Process & Associations: Loose associations Thought Content: Bizarre thinking, Delusional Hallucination Type: Auditory (Vague) Delusion Type: Paranoid (Improved), Other (Improved) Suicidal Ideation: No Suicidal Plan: No Suicidal Intention: No Homicidal Ideation: No Homicidal Plan: No Homicidal Intention: No Insight: Poor Judgment: Poor Assessment and Plan - Assessment (1) Paranoid type schizophrenia, chronic state Code(s): F20.0 - Paranoid schizophrenia Status: Acute - Plan Plan: Patient remains psychotic delusional though somewhat softer and calmer with me, compliant medications, states is willing to show compliance with medication as an outpatient along with outpatient follow-up appointments Justification for Continued Inpatient Stay: At this time patient with decompensated placed in a lower level of care Discharge Planning: To be determined Request Healthcare Surrogate/Guardian Advocate?: Yes
[2018-08-15 18:46] VITALS: RESP 18; O2SAT 99
[2018-08-16 05:19] VITALS: BP 123/59; PULSE 88; TEMP 97.4
[2018-08-16] MEDS: Insulin NovoLIN Regular Correctional Sugar Inj SQ SCH ×2 (08:20→11:30)
[2018-08-16] MEDS: amLODIPine 5 MG Tablet PO SCH (08:22)
[2018-08-16] MEDS: Haloperidol 5 MG Tablet PO SCH (08:22)
[2018-08-16] MEDS: Lisinopril 20 MG Tablet PO SCH (08:22)
--- NOTE | 2018-08-16 11:20 | P.DSPSY ---
Psychiatry Discharge Summary Inpatient Psychiatric care?: Yes Advance Directives: No Mental Health Advance Directive: No Health Care Proxy: Yes - Admission Admission Date: August 11, 2018 09:53 - Admission Diagnosis (1) Paranoid type schizophrenia, chronic state Code(s): F20.0 - Paranoid schizophrenia Brief History: Patient is a 57-year-old -Trist[place] female well known to us multiple prior visits comes here under Pak act by the [place] [employer] dated 08/10/2018 at 2202 hrs. that document reviewed and agreed with it is essentially stating Jun is diagnosed with bipolar disorder and schizophrenia W has not taken her medication for approximately 3 months diabetes currently speaking with parish and that in the current mental state care for herself W's family. Without treatment she will be a threat to herself and others. Patient seen screen in the ED medically cleared, urine toxicology negative. At the present time patient sitting quietly in her bed in her room nurse Kristi present throughout session. Patient and tense with intense eye contact stating that she is the supreme being and that she points up to this isha. She states that she talks to the supreme being. That she does not have a mental illness that she does not need medication. Of interest to respond somewhat more appropriately when refer to her in the third person as Akos[place]'s or the supreme being. She appears to be responding to internal stimuli. Patient was hospitalized here in March of this year under Dr. Arreaga for similar presentation she was placed for a while but appears Clazuril but she has stopped that. She is placed on Haldol 5 mg twice daily by the nurse practitioner. I do agree with that. At this time patient does not meet criteria for involuntary psychiatric hospitalization. I will do first opinion request second opinion for which she does not have capacity last healthcare surrogate guardian advocate it appears in the past the patient's sister has been the healthcare surrogate. Hopefully to be fairly short stay and returned her to her family Tobacco Use In Past 30 Days: No How Often Do You Have a Drink Containing Alcohol: Monthly or less Hospital Course: Patient's hospital course was uneventful, she will compliance with medication from day of admission. Her initial grandiosity paranoia hyper religiosity is slowly resolved. She showed no behavioral issues. She was eating and sleeping well. There was minimal socialization. Patient is seen today with nurse Fela. At this time patient denies suicidality or homicidality voices or visions. She is calm and cooperative. She does have appropriate placement in the community. Patient is agreeing to compliance with her medication and outpatient follow- up appointments. Thus patient will be discharged today with Rx times 1 month follow-up stroke [facility] outpatient medication management - Discharge Discharge Date: 08/16/18 - Discharge Diagnosis (1) Paranoid type schizophrenia, chronic state Diagnosis: Principal Code(s): F20.0 - Paranoid schizophrenia Status: Acute Discharge Disposition: Home - Discharge Instructions Discharge Diet: Regular Diet Activities You Can Perform: Regular- No Restrictions - Discharge Time > 30 minutes Mental Status Examination Appearance: Appropriate Consciousness: Alert Orientation: Person, Place, Situation Motor Activity: Normal gait Speech: Pressured (Slightly improved), Rapid (Slightly improved) Language: Adequate Fund of Knowledge: Inadequate Attention and Concentration: Easily distracted Memory: Impaired Mood: Other (Euthymic to somewhat restricted) Affect: Other (Good range and intensity) Thought Process & Associations: Loose associations Thought Content: Bizarre thinking, Delusional Hallucination Type: Auditory (Vague) Delusion Type: Paranoid (Improved), Other (Improved) Suicidal Ideation: No Suicidal Plan: No Suicidal Intention: No Homicidal Ideation: No Homicidal Plan: No Homicidal Intention: No Insight: Poor Judgment: Poor Discharge/Advance Care Plan - Results Vital Signs: Last Vital Signs Temp 97.4 F L 08/16/18 05:18 Pulse 88 08/16/18 05:18 Resp 18 08/16/18 05:18 BP 123/59 L 08/16/18 05:18 Pulse Ox 99 08/16/18 05:18 Lab Results: Abnormal Lab Results 08/15/18 08/15/18 08/16/18 16:30 20:12 05:55 POC Glucose 187 H 161 H 151 H Laboratory Results Hemoglobin A1c 7.7 % (4.3-6.0) H 08/12/18 10:05 Triglycerides 121 mg/dL (42-150) 08/12/18 10:05 Cholesterol 178 mg/dL (120-200) 08/12/18 10:05 LDL Cholesterol, Calc 110 mg/dL (0-99) H 08/12/18 10:05 HDL Cholesterol 44.3 mg/dL (40.0-60.0) 08/12/18 10:05 TSH 2.750 uIU/mL (0.358-3.740) 08/10/18 22:40 Urine Culture Comments Culture not ind 08/12/18 14:20 [place] Less than 0.1 meq/L (0.5-1.5) L 08/10/18 22:40 Summary of Procedures: None done Pending Results: None - Medications Number of antipsychotic medications at discharge: 1 - Discharge Care Plan Goals to Promote Your Health: * To prevent worsening of your condition and complications * To maintain your health at the optimal level Directions to Meet Your Goals: Take your medications as prescribed Follow your dietary instruction Follow activity as directed Keep your appointments as scheduled Take your immunizations and boosters as scheduled If your symptoms worsen call your PCP, if no PCP go to Urgent Care Center or Emergency Room For 28/03 questions related to your inpatient stay or results of tests pending at discharge, please contact Dr. Vasquez Dsouza MD at Smoking is Dangerous to Your Health. Avoid second hand smoking
== END 2018-08-16 12:46 | disposition home or self-care (01) ==
LOC: NEDAMB 22:17 → NEDA 08-11 09:53 → H270 08-11 10:50
PROVIDERS: ADMIT Psychiatry & Neurology Psychiatry; ATTEND Psychiatry & Neurology Psychiatry

== ENCOUNTER 2018-09-07 04:17 | Inpatient (IN) ==
[2018-09-07 04:57] LABS: Baso % (Auto) 0.3 % (0.0-2.0); Eos % (Auto) 0.1 % (0.0-4.0); Hematocrit 28.1 % (35.0-46.0); Hemoglobin 9.3 gm/dL (11.6-15.3); Lymph # (Auto) 2.5 th/mm3 (1.0-4.8); Lymph % (Auto) 30.5 % (9.0-44.0); Mean Corpuscular Hemoglobin 26.4 pg (27.0-34.0); Mean Corpuscular Volume 79.9 fL (80.0-100.0); Mean Platelet Volume 6.7 fL (7.0-11.0); Mono # (Auto) 0.5 th/mm3 (0.0-0.9); Mono % (Auto) 6.4 % (0.0-8.0); Neut # (Auto) 5.1 th/mm3 (1.8-7.7); Neut % (Auto) 62.7 % (16.0-70.0); Platelet Count 470 th/mm3 (150-450); Red Blood Count 3.52 mil/mm3 (4.00-5.30); Red Cell Distribution Width 15.5 % (11.6-17.2); White Blood Count 8.1 th/mm3 (4.0-11.0)
[2018-09-07 05:11] LABS: Albumin 3.4 g/dL (3.4-5.0); Anion Gap 7 meq/L (5-15); Aspartate Aminotransferase 13 U/L (15-37); Blood Urea Nitrogen 21 mg/dL (7-18); Calcium 8.3 mg/dL (8.5-10.1); Carbon Dioxide 27.6 meq/L (21.0-32.0); Chloride 107 meq/L (98-107); Glomerular Filtration Rate 83 mL/min (>89); Glucose,Random 137 mg/dL (74-106); Magnesium 1.9 mg/dL (1.5-2.5); Potassium 3.6 meq/L (3.5-5.1); Sodium 142 meq/L (136-145)
[2018-09-07 05:12] LABS: Alanine Aminotransferase 14 U/L (10-53)
[2018-09-07 05:14] LABS: Bilirubin,Urine Negative (Negative); Clarity,Urine Clear (Clear); Color,Urine Yellow (Yellw/Straw); Glucose,Urine (UA) Negative (Negative); Leukocyte Esterase,Urine Negative (Negative); Mucus,Urine Few /lpf (Occasional); Nitrite,Urine Negative (Negative); Specific Gravity,Urine 1.021 (1.002-1.035); Squamous Epithelial Cell,Urine 2 /hpf (0-5)
[2018-09-07 05:18] LABS: Amphetamine Screen,Urine Neg (Neg); Barbiturate Screen,Urine Neg (Neg); Cannabinoid Screen,Urine Neg (Neg); Cocaine Screen,Urine Neg (Neg)
[2018-09-07 05:19] LABS: Opiate Screen,Urine Neg (Neg)
[2018-09-07 05:21] LABS: Alkaline Phosphatase 69 U/L (45-117); Total Protein 7.6 g/dL (6.4-8.2)
--- NOTE | 2018-09-07 05:46 | ED ---
HPI General Chief Complaint: Psychiatric Symptoms Stated Complaint: Psy Eval/DBPD Time Seen by Provider: 09/07/18 05:44 Source: patient Mode of arrival: ambulatory Limitations: no limitations History of Present Illness HPI Narrative: This is a 57-year-old black female who presents emergency department under Pak act by PD. Patient has a history of paranoid schizophrenia, hypertension and diabetes. The patient allegedly had been noncompliant with her medications. She has been becoming increasingly bizarre at home. PD who is here with the patient states that she was acting bizarre and appear to be hallucinating on their presentation as well. Here she is calm and cooperative. She is denying any medical complaints. She denies any suicidal homicidal ideation. She denies any visual or auditory hallucinations. Related Data Previous Rx's Medication Instructions Recorded amlodipine [Norvasc] 5 mg PO DAILY #30 tab 08/16/18 haloperidol 5 mg PO BID #60 tab 08/16/18 lisinopril 20 mg PO DAILY #30 tab 08/16/18 Allergies Allergy/AdvReac Type Severity Reaction Status Date / Time No Known Allergies Allergy Verified 03/23/18 17:28 Review of Systems ROS: all other systems reviewed are negative [facility] Medical History Medical History Diabetes (Acute) HTN (hypertension) (Acute) Patient denies medical problems (Acute) Surgical History Surgical History No history of previous surgery (Acute) Social History Social History Substance History: No History of Abuse Second Hand Smoke Exposure: No Smoking Status: Never smoker Tobacco Type: Cigarettes How Often Do You Have a Drink Containing Alcohol: Monthly or less Recent Travel in [facility] within the Last 8 Weeks: No Recent Out of Country Travel within the Last 8 Weeks: No Exam Narrative Exam Narrative: GENERAL: Well-nourished, well-developed patient. SKIN: Warm and dry. HEAD: Normocephalic and atraumatic. EYES: No scleral icterus. No injection or drainage. ENT: No nasal drainage noted. Mucous membranes pink. Airway patent. NECK: Supple, trachea midline. Moves head freely without obvious discomfort. CARDIOVASCULAR: Regular rate and rhythm without murmurs, gallops, or rubs. RESPIRATORY: Breath sounds equal bilaterally. No accessory muscle use. GASTROINTESTINAL: Abdomen soft, non-tender, nondistended. EXTREMITIES: No cyanosis or edema. BACK: Nontender without obvious deformity. No CVA tenderness. NEURO: Patient is alert and oriented. no sensorimotor deficits. Nonfocal. Normal speech. PSYCH: No delusions. No auditory or visual hallucinations. Course Initial Documented Vital Signs Temperature 98.2 F 09/07/18 04:33 Pulse Rate 90 09/07/18 04:33 Respiratory Rate 18 09/07/18 04:33 Blood Pressure 136/62 09/07/18 04:33 Pulse Oximetry 96 09/07/18 04:33 Last Documented Vital Signs Temperature 98.2 F 09/07/18 04:33 Pulse Rate 90 09/07/18 04:33 Respiratory Rate 18 09/07/18 04:33 Blood Pressure 136/62 09/07/18 04:33 Pulse Oximetry 96 09/07/18 04:33 Medical Decision Making MDM Narrative Medical decision making narrative: We will perform routine laboratory testing for medical clearance Medical Screen Exam Complete: Yes Emergency Medical Condition: Yes Differential Diagnosis Differential Diagnosis: MDM: High Differential diagnoses: Schizophrenia, schizoaffective disorder, bipolar, anxiety, depression, adjustment reaction, mood disorder NOS, ODD, depressive disorder NOS, psychosis NOS, substance induced mood disorder, infection, electrolyte abnormality, malingering. Mental health screening discussed with the patient. Psychiatric screen ordered. Lab Data Result diagrams: 09/07/18 04:40 09/07/18 04:40 Lab Results 09/07/18 09/07/18 09/07/18 Range/Units 04:40 04:40 04:40 WBC 8.1 (4.0-11.0) th/mm3 RBC 3.52 L (4.00-5.30) mil/mm3 Hgb 9.3 L (11.6-15.3) gm/dL Hct 28.1 L (35.0-46.0) % MCV 79.9 L (80.0-100.0) fL MCH 26.4 L (27.0-34.0) pg MCHC 33.0 (32.0-36.0) % RDW 15.5 (11.6-17.2) % Plt Count 470 H (150-450) th/mm3 MPV 6.7 L (7.0-11.0) fL Neut % (Auto) 62.7 (16.0-70.0) % Lymph % (Auto) 30.5 (9.0-44.0) % [place] % (Auto) 6.4 (0.0-8.0) % Eos % (Auto) 0.1 (0.0-4.0) % Baso % (Auto) 0.3 (0.0-2.0) % Neut # (Auto) 5.1 (1.8-7.7) th/mm3 Lymph # (Auto) 2.5 (1.0-4.8) th/mm3 [place] # (Auto) 0.5 (0.0-0.9) th/mm3 Eos # (Auto) 0.0 (0.0-0.4) th/mm3 Baso # (Auto) 0.0 (0.0-0.2) th/mm3 WBC Differential . Differential Comment Auto diff final Sodium 142 (136-145) meq/L Potassium 3.6 (3.5-5.1) meq/L Chloride 107 (98-107) meq/L Carbon Dioxide 27.6 (21.0-32.0) meq/L Anion Gap 7 (5-15) meq/L BUN 21 H (7-18) mg/dL Creatinine 0.85 (0.50-1.00) mg/dL Estimated GFR 83 L (>89) mL/min Random Glucose 137 H (74-106) mg/dL Calcium 8.3 L (8.5-10.1) mg/dL Magnesium 1.9 (1.5-2.5) mg/dL Total Bilirubin 0.3 (0.2-1.0) mg/dL AST 13 L (15-37) U/L ALT 14 (10-53) U/L Alkaline Phosphatase 69 (45-117) U/L Total Protein 7.6 (6.4-8.2) g/dL Albumin 3.4 (3.4-5.0) g/dL TSH 2.200 (0.358-3.740) uIU/mL Urine Color (Yellw/Straw) Urine Clarity (Clear) Urine pH (5.0-8.5) Ur Specific [place] (1.002-1.035) Urine Protein (Neg-Trace) mg/dL Urine Glucose (UA) (Negative) mg/dL Urine Ketones (Negative) mg/dL Urine Occult Blood (Negative) Urine Nitrate (Negative) Urine Bilirubin (Negative) Urine Urobilinogen (Less than 2) mg/dL Ur Leukocyte Esterase (Negative) Urine RBC (0-3) /hpf Urine WBC (0-5) /hpf Ur Squamous Epith Cells (0-5) /hpf Urine Mucus (Occasional) /lpf Micro UA Comment Ur Microscopic Review Urine Culture Comments Salicylates Less than 1.7 L (2.8-20.0) mg/dL Urine Opiates Screen (Neg) Acetaminophen Less than 2.0 L (10.0-30.0) mcg/mL Ur Barbiturates Screen (Neg) Ur Amphetamines Screen (Neg) U Benzodiazepines Scrn (Neg) Urine Cocaine Screen (Neg) U Cannabinoids Screen (Neg) Serum Alcohol Less than 3 (0-5) mg/dL 09/07/18 09/07/18 Range/Units 04:40 04:40 WBC (4.0-11.0) th/mm3 RBC (4.00-5.30) mil/mm3 Hgb (11.6-15.3) gm/dL Hct (35.0-46.0) % MCV (80.0-100.0) fL MCH (27.0-34.0) pg MCHC (32.0-36.0) % RDW (11.6-17.2) % Plt Count (150-450) th/mm3 MPV (7.0-11.0) fL Neut % (Auto) (16.0-70.0) % Lymph % (Auto) (9.0-44.0) % [place] % (Auto) (0.0-8.0) % Eos % (Auto) (0.0-4.0) % Baso % (Auto) (0.0-2.0) % Neut # (Auto) (1.8-7.7) th/mm3 Lymph # (Auto) (1.0-4.8) th/mm3 [place] # (Auto) (0.0-0.9) th/mm3 Eos # (Auto) (0.0-0.4) th/mm3 Baso # (Auto) (0.0-0.2) th/mm3 WBC Differential Differential Comment Sodium (136-145) meq/L Potassium (3.5-5.1) meq/L Chloride (98-107) meq/L Carbon Dioxide (21.0-32.0) meq/L Anion Gap (5-15) meq/L BUN (7-18) mg/dL Creatinine (0.50-1.00) mg/dL Estimated GFR (>89) mL/min Random Glucose (74-106) mg/dL Calcium (8.5-10.1) mg/dL Magnesium (1.5-2.5) mg/dL Total Bilirubin (0.2-1.0) mg/dL AST (15-37) U/L ALT (10-53) U/L Alkaline Phosphatase (45-117) U/L Total Protein (6.4-8.2) g/dL Albumin (3.4-5.0) g/dL TSH (0.358-3.740) uIU/mL Urine Color Yellow (Yellw/Straw) Urine Clarity Clear (Clear) Urine pH 6.0 (5.0-8.5) Ur Specific [place] 1.021 (1.002-1.035) Urine Protein Negative (Neg-Trace) mg/dL Urine Glucose (UA) Negative (Negative) mg/dL Urine Ketones Trace H (Negative) mg/dL Urine Occult Blood Negative (Negative) Urine Nitrate Negative (Negative) Urine Bilirubin Negative (Negative) Urine Urobilinogen Less than 2 (Less than 2) mg/dL Ur Leukocyte Esterase Negative (Negative) Urine RBC Less than 1 (0-3) /hpf Urine WBC Less than 1 (0-5) /hpf Ur Squamous Epith Cells 2 (0-5) /hpf Urine Mucus Few H (Occasional) /lpf Micro UA Comment Culture not ind Ur Microscopic Review Not Reportable Urine Culture Comments Culture not ind Salicylates (2.8-20.0) mg/dL Urine Opiates Screen Neg (Neg) Acetaminophen (10.0-30.0) mcg/mL Ur Barbiturates Screen Neg (Neg) Ur Amphetamines Screen Neg (Neg) U Benzodiazepines Scrn Neg (Neg) Urine Cocaine Screen Neg (Neg) U Cannabinoids Screen Neg (Neg) Serum Alcohol (0-5) mg/dL Discharge Plan Discharge Disposition Patient Disposition: Sign Out(ED Internal Use Only) Discharge Condition Condition: Stable Physicians Team ED Provider: Derik Mcelroy ED Midlevel Provider: Bhargav Nick Primary Care Provider: UNKNOWN, Rxs /Orders / Referrals /Forms Prescriptions: No Action haloperidol 5 mg Tablet 5 mg PO BID Qty: 60 RF: 0 lisinopril 20 mg Tablet 20 mg PO DAILY Qty: 30 RF: 0 amlodipine [Norvasc] 5 mg Tablet 5 mg PO DAILY Qty: 30 RF: 0 Status ED Status: Medically Cleared
[2018-09-07] MEDS ORDERED: Aluminum/Magnesium/Simethacone Susp 30 ML UDC PO PRN (10:33)
--- NOTE | 2018-09-07 10:36 | ED ---
HPI - Psych - General Time Seen by Psych Provider: 10:16 Source: patient, family Mode of arrival: ambulatory Limitations: altered mental status - History of Present Illness complaint: altered mental status Onset (ago): day(s) Duration: changing over time, getting worse History of same: Yes Relieving factors: medication Exacerbating factors: other (Noncompliance) Context: not taking psychiatric medications Associated psychiatric symptoms: auditory hallucinations Treatments prior to arrival: placed on mental health hold - General Chief Complaint: Psychiatric Symptoms Stated Complaint: Psy Eval/DBPD Time Seen by Provider: 09/07/18 05:44 - History of Present Illness HPI Narrative: This is a 57-year-old , -[place] female who presents under a police initiated Pak act to this facility for reported bizarre behavior. Patient is well-known to this facility and to the psychiatric department with her last inpatient admission on 08/11/18 through 08/16/18. Reviewed electronic medical record, labs, discussed case with staff. The patient was assessed in J109. She was found sleeping in no apparent distress. She woke to verbal stimuli. She is alert and oriented to self and place at least. Her speech is clear, logical, organized, of normal canes and volume at this time. Staff reports that this morning when they initially arrived she was extremely disorganized, loud, and bizarre. The patient is currently denying suicidal ideation, homicidal ideation expressing auditory or visual hallucinations. However, she does report that she needs to "have my pills regulated". She has an extensive history with this facility of being stabilized for her diagnosis of schizophrenia and upon discharge becoming noncompliant with her medications. I spoke with her uncle and twin sister who expressed concern over what they feel is the "revolving door nature" of her treatment. I have explained to them that we do not have legal capacity to compel her to take medications when she is discharged. They would like for this facility to see if we can get a court mandated long-acting injectable. They plan on contacting the attending psychiatrist to see what can be arranged. The patient was observed in her room in the hallway responding to internal stimuli, talking to no one, and laughing apropos of nothing. (Mami Bear) - Related Data Previous Rx's Medication Instructions Recorded amlodipine [Norvasc] 5 mg PO DAILY #30 tab 08/16/18 haloperidol 5 mg PO BID #60 tab 08/16/18 lisinopril 20 mg PO DAILY #30 tab 08/16/18 Allergies Allergy/AdvReac Type Severity Reaction Status Date / Time No Known Allergies Allergy Verified 03/23/18 17:28 Review of Systems All other systems reviewed negative except as stated [facility] - History History Provided By: Patient - Medical History Medical History: Medical History (Last Reviewed 09/07/18 @ 14:12 by MARTIN Malik) Diabetes HTN (hypertension) Patient denies medical problems - Surgical History Surgical History: Surgical History (Last Reviewed 09/07/18 @ 14:12 by MARTIN Malik) No history of previous surgery - Family History Family History: Family History (Last Reviewed 08/13/18 @ 19:08 by Soniya Hanson MD) Other Family history unobtainable due to patient's condition - Tobacco History Second Hand Smoke Exposure: No Smoking Status: Never smoker Tobacco Type: Cigarettes - Alcohol History How Often Do You Have a Drink Containing Alcohol: Monthly or less - Substance Use History Substance History: No History of Abuse - Travel History Recent Travel in the [facility] Within the Last 8 Weeks: No Recent Travel Out of the Country Within the Last 8 Weeks: No Psychiatric History - Psychiatric History Psychiatric Treatment History: History of Psychiatric Treatment, History of Hospitalization in a Psychiatric Facility, History of Community Mental Health Treatment History of Inpatient Treatment: Yes Firearms in Home: No - Psychiatric History Extensive psychiatric history with 2 inpatient admissions in 2018 to stabilize her psychotic episodes. (Mami Bear) Physical Exam - General Limitations: no limitations General appearance: alert - Head Head exam: atraumatic - Neurological Exam Neurological exam: Present: alert - Expanded Neurological Exam Patient oriented to: Present: person, place - Expanded Psychiatric Exam Expanded psych exam: Present: responds to int stimuli, auditory hallucinations Mental Status Examination Appearance: Disheveled Consciousness: Alert Orientation: Person, Place Motor Activity: Normal gait Speech: Unremarkable Language: Adequate Fund of Knowledge: Inadequate Attention and Concentration: Easily distracted Memory: Unremarkable Mood: Good Affect: Euthymic Thought Process & Associations: Intact, Logical Thought Content: Hallucinations Hallucination Type: Auditory Delusion Type: None Suicidal Ideation: No Suicidal Plan: No Suicidal Intention: No Homicidal Ideation: No Homicidal Plan: No Homicidal Intention: No Insight: Poor Judgment: Impulsive Initial Documented Vital Signs Temperature 98.2 F 09/07/18 04:33 Pulse Rate 90 09/07/18 04:33 Respiratory Rate 18 09/07/18 04:33 Blood Pressure 136/62 09/07/18 04:33 Pulse Oximetry 96 09/07/18 04:33 Last Documented Vital Signs Temperature 98.2 F 09/07/18 04:33 Pulse Rate 82 09/07/18 12:02 Respiratory Rate 18 09/07/18 12:02 Blood Pressure 138/63 09/07/18 12:02 Pulse Oximetry 96 09/07/18 12:02 MDM - Psych - Diagnosis (1) Schizophrenia Code(s): F20.9 - Schizophrenia, unspecified Status: Acute - Lab Data Result diagrams: 09/07/18 04:40 09/07/18 04:40 - MDM Narrative Medical decision making narrative: Given this patient's extensive history of psychiatric treatment and her destabilization combined with her family's concern that she will harm her she meets inpatient admission criteria. Therefore, I am admitting her to a locked inpatient psychiatric unit for further evaluation and treatment as deemed necessary. I have obtained consent via phone from her uncle to continue her current psychotropic medication as well as 50 mg hydroxyzine every 6 hours as needed for anxiety and 50 mg diphenhydramine as needed at bedtime for insomnia. The family state that they intend on contacting the attending psychiatrist to discuss treatment options. I encouraged him to wait until tomorrow afternoon to try to set up an appointment. (Mami Bear) - Lab Data Lab Results 09/07/18 09/07/18 09/07/18 Range/Units 04:40 04:40 04:40 WBC 8.1 (4.0-11.0) th/mm3 RBC 3.52 L (4.00-5.30) mil/mm3 Hgb 9.3 L (11.6-15.3) gm/dL Hct 28.1 L (35.0-46.0) % MCV 79.9 L (80.0-100.0) fL MCH 26.4 L (27.0-34.0) pg MCHC 33.0 (32.0-36.0) % RDW 15.5 (11.6-17.2) % Plt Count 470 H (150-450) th/mm3 MPV 6.7 L (7.0-11.0) fL Neut % (Auto) 62.7 (16.0-70.0) % Lymph % (Auto) 30.5 (9.0-44.0) % [place] % (Auto) 6.4 (0.0-8.0) % Eos % (Auto) 0.1 (0.0-4.0) % Baso % (Auto) 0.3 (0.0-2.0) % Neut # (Auto) 5.1 (1.8-7.7) th/mm3 Lymph # (Auto) 2.5 (1.0-4.8) th/mm3 [place] # (Auto) 0.5 (0.0-0.9) th/mm3 Eos # (Auto) 0.0 (0.0-0.4) th/mm3 Baso # (Auto) 0.0 (0.0-0.2) th/mm3 WBC Differential . Differential Comment Auto diff final Sodium 142 (136-145) meq/L Potassium 3.6 (3.5-5.1) meq/L Chloride 107 (98-107) meq/L Carbon Dioxide 27.6 (21.0-32.0) meq/L Anion Gap 7 (5-15) meq/L BUN 21 H (7-18) mg/dL Creatinine 0.85 (0.50-1.00) mg/dL Estimated GFR 83 L (>89) mL/min Random Glucose 137 H (74-106) mg/dL Calcium 8.3 L (8.5-10.1) mg/dL Magnesium 1.9 (1.5-2.5) mg/dL Total Bilirubin 0.3 (0.2-1.0) mg/dL AST 13 L (15-37) U/L ALT 14 (10-53) U/L Alkaline Phosphatase 69 (45-117) U/L Total Protein 7.6 (6.4-8.2) g/dL Albumin 3.4 (3.4-5.0) g/dL TSH 2.200 (0.358-3.740) uIU/mL Urine Color (Yellw/Straw) Urine Clarity (Clear) Urine pH (5.0-8.5) Ur Specific [place] (1.002-1.035) Urine Protein (Neg-Trace) mg/dL Urine Glucose (UA) (Negative) mg/dL Urine Ketones (Negative) mg/dL Urine Occult Blood (Negative) Urine Nitrate (Negative) Urine Bilirubin (Negative) Urine Urobilinogen (Less than 2) mg/dL Ur Leukocyte Esterase (Negative) Urine RBC (0-3) /hpf Urine WBC (0-5) /hpf Ur Squamous Epith Cells (0-5) /hpf Urine Mucus (Occasional) /lpf Micro UA Comment Ur Microscopic Review Urine Culture Comments Salicylates Less than 1.7 L (2.8-20.0) mg/dL Urine Opiates Screen (Neg) Acetaminophen Less than 2.0 L (10.0-30.0) mcg/mL Ur Barbiturates Screen (Neg) Ur Amphetamines Screen (Neg) U Benzodiazepines Scrn (Neg) Urine Cocaine Screen (Neg) U Cannabinoids Screen (Neg) Serum Alcohol Less than 3 (0-5) mg/dL 09/07/18 09/07/18 Range/Units 04:40 04:40 WBC (4.0-11.0) th/mm3 RBC (4.00-5.30) mil/mm3 Hgb (11.6-15.3) gm/dL Hct (35.0-46.0) % MCV (80.0-100.0) fL MCH (27.0-34.0) pg MCHC (32.0-36.0) % RDW (11.6-17.2) % Plt Count (150-450) th/mm3 MPV (7.0-11.0) fL Neut % (Auto) (16.0-70.0) % Lymph % (Auto) (9.0-44.0) % [place] % (Auto) (0.0-8.0) % Eos % (Auto) (0.0-4.0) % Baso % (Auto) (0.0-2.0) % Neut # (Auto) (1.8-7.7) th/mm3 Lymph # (Auto) (1.0-4.8) th/mm3 [place] # (Auto) (0.0-0.9) th/mm3 Eos # (Auto) (0.0-0.4) th/mm3 Baso # (Auto) (0.0-0.2) th/mm3 WBC Differential Differential Comment Sodium (136-145) meq/L Potassium (3.5-5.1) meq/L Chloride (98-107) meq/L Carbon Dioxide (21.0-32.0) meq/L Anion Gap (5-15) meq/L BUN (7-18) mg/dL Creatinine (0.50-1.00) mg/dL Estimated GFR (>89) mL/min Random Glucose (74-106) mg/dL Calcium (8.5-10.1) mg/dL Magnesium (1.5-2.5) mg/dL Total Bilirubin (0.2-1.0) mg/dL AST (15-37) U/L ALT (10-53) U/L Alkaline Phosphatase (45-117) U/L Total Protein (6.4-8.2) g/dL Albumin (3.4-5.0) g/dL TSH (0.358-3.740) uIU/mL Urine Color Yellow (Yellw/Straw) Urine Clarity Clear (Clear) Urine pH 6.0 (5.0-8.5) Ur Specific [place] 1.021 (1.002-1.035) Urine Protein Negative (Neg-Trace) mg/dL Urine Glucose (UA) Negative (Negative) mg/dL Urine Ketones Trace H (Negative) mg/dL Urine Occult Blood Negative (Negative) Urine Nitrate Negative (Negative) Urine Bilirubin Negative (Negative) Urine Urobilinogen Less than 2 (Less than 2) mg/dL Ur Leukocyte Esterase Negative (Negative) Urine RBC Less than 1 (0-3) /hpf Urine WBC Less than 1 (0-5) /hpf Ur Squamous Epith Cells 2 (0-5) /hpf Urine Mucus Few H (Occasional) /lpf Micro UA Comment Culture not ind Ur Microscopic Review Not Reportable Urine Culture Comments Culture not ind Salicylates (2.8-20.0) mg/dL Urine Opiates Screen Neg (Neg) Acetaminophen (10.0-30.0) mcg/mL Ur Barbiturates Screen Neg (Neg) Ur Amphetamines Screen Neg (Neg) U Benzodiazepines Scrn Neg (Neg) Urine Cocaine Screen Neg (Neg) U Cannabinoids Screen Neg (Neg) Serum Alcohol (0-5) mg/dL
[2018-09-07] MEDS: amLODIPine 5 MG Tablet PO SCH (14:11)
[2018-09-07] MEDS: Lisinopril 20 MG Tablet PO SCH (14:11)
[2018-09-07] MEDS ORDERED: Dextrose 50% in Water 50 ML Vial IV.PUSH PRN (16:42)
[2018-09-07] MEDS: Insulin NovoLOG Aspart Correctional Sugar Inj SQ SCH ×2 (19:19→20:40)
[2018-09-08] MEDS ORDERED: Haloperidol Inj 5 MG/ML Ampul ONE (05:27)
[2018-09-08] MEDS ORDERED: Haloperidol Inj 5 MG/ML Ampul IM ONE (05:45)
--- NOTE | 2018-09-08 09:03 | P.TTN ---
- Patient Problems Problems: 1. Discharge planning 2. Medication compliance 3. Knowledge deficit 4. Lack of coping skills - Progress Toward Goals Provider Present: Other (Rola: New patient will assess today.) Psychiatric Counselors Present: Dominik Sutton Jr., [facility] (Will meet with patient to come up with safe discharge plan.) Group Spec/RT/OT/TREVINO Present: BELINDA Bradley (New patient will encourage to attend rec groups) - Documentation Teaching Recipient: Patient
[2018-09-08] MEDS: Lisinopril 20 MG Tablet PO SCH (10:11)
[2018-09-08] MEDS: amLODIPine 5 MG Tablet PO SCH (10:11)
[2018-09-08] MEDS: Haloperidol 5 MG Tablet PO SCH ×2 (10:11→21:50)
[2018-09-08] MEDS: Insulin NovoLOG Aspart Correctional Sugar Inj SQ SCH ×5 (10:12→22:20)
--- NOTE | 2018-09-08 13:53 | P.HPPSY ---
Provisional Diagnosis Admission Date: September 07, 2018 10:33 [place] I.: Schizophrenia chronic paranoid type [place] III.: Type 2 diabetes, chronic anemia microcytic type Competence Certification of Person's Competence To Provide Express and Informed Consent I have personally examined Maulik Diaz, a person being served at [facility] on, September 08, 2018 1348. Express and informed consent means consent voluntarily given in writing, by a competent person, after sufficient explanation and disclosure of the subject matter involved to enable the person to make a knowing and willful decision without any element of force, fraud, deceit, duress, or other form of constraint or coercion. This person is 18 years of age or older, is not now known to be incompetent to consent to treatment with a guardian advocate, and does not have a health care surrogate or proxy currently making medical treatment decisions. I have found this person to be one of the following: [] Competent to provide express and informed consent, as defined above, for voluntary admission to this facility and is competent to provide express and informed consent for treatment. He/she has the consistent capacity to make well reasoned, willful, and knowing decisions concerning his or her medical or mental health treatment. The person fully and consistently understands the purpose of the admission for examination/placement and is fully capable of personally exercising all rights [place] [xx] Incompetent to provide express and informed consent to voluntary admission , and this is incompetent to provide express and informed consent to treatment. The person must be transferred to involuntary status and a petition for a guardian advocate filed with the Circuit Court. [] Refusing to provide express and informed consent to voluntary admission but is competent to provide express and informed consent for treatment. The person must be discharged or transferred to involuntary status. Form shall be completed within 24 hours of a person's arrival at the receiving facility and filed in the clinical record of each person: 1. Admitted on a voluntary basis 2. Permitted to provide express and informed consent to his/her own treatment 3. Allowed to transfer from involuntary to voluntary status 4. Prior to permitting a person to consent to his or her own treatment after having been previously found incompetent to consent to treatment. History of Present Illness Capacity: Lacks capacity Chief Complaint: Extremely disorganized and violent behavior History of Present Illness: This is a 57-year-old , -British female who presents under a police initiated Pak act to this facility for reported bizarre behavior. Patient is well-known to this facility and to the psychiatric department with her last inpatient admission on 08/11/18 through 08/16/18. Reviewed electronic medical record, labs, discussed case with staff. The patient was assessed in J109. She was found sleeping in no apparent distress. She woke to verbal stimuli. She is alert and oriented to self and place at least. Her speech is clear, logical, organized, of normal canes and volume at this time. Staff reports that this morning when they initially arrived she was extremely disorganized, loud, and bizarre. The patient is currently denying suicidal ideation, homicidal ideation expressing auditory or visual hallucinations. However, she does report that she needs to "have my pills regulated". She has an extensive history with this facility of being stabilized for her diagnosis of schizophrenia and upon discharge becoming noncompliant with her medications. I spoke with her uncle and twin sister who expressed concern over what they feel is the "revolving door nature" of her treatment. I have explained to them that we do not have legal capacity to compel her to take medications when she is discharged. They would like for this facility to see if we can get a court mandated long-acting injectable. They plan on contacting the attending psychiatrist to see what can be arranged. The patient was observed in her room in the hallway responding to internal stimuli, talking to no one, and laughing apropos of nothing. The patient was observed on the unit today by the attending psychiatrist. The patient was asleep through breakfast and difficult to arouse throughout the day. She did get up and have lunch but then immediately fell back asleep. Patient was brought out into the day room and had her sit in the chair in an attempt to get her awake and talkative. The patient remains severely somnolent and although she would wake to answer questions briefly she would fall right back to sleep. The patient has been given an emergency treatment order this morning with Haldol 5 mg IM and Ativan 2 mg IM and then started on her scheduled dose of Haldol 5 mg orally twice a day. During the brief interactions the patient was able to stay awake for today, the patient acknowledged the need to be hospitalized in order to get her medications stabilized. She verbalized that she is willing to take her medications as prescribed. - Inpatient Certification I certify that the inpatient services were ordered in accordance with Medicare regulations governing the order. This includes certification that hospital inpatient services are reasonable and necessary and in the case of services not specified as inpatient-only under 42 CFR 419.22(n), that they are appropriately provided as inpatient services in accordance to with the 2-midnight benchmark under 43 CFR 412.3(e) I certify that inpatient psychiatric hospital services are medically necessary. Evaluation and treatment and/or diagnostic testing are expected to improve the patient's condition. The patient needs on a daily basis, active treatment furnished directly by or requiring the supervision of inpatient psychiatric facility personnel. Estimated Total Length of Stay (Days): 7 Plans for Post Hospital Care: Home Review of Systems unobtainable due to mental status PMFSH - History History Provided By: Patient - Medical History Medical History: Medical History (Last Reviewed 09/07/18 @ 14:12 by MARTIN Malik) Diabetes HTN (hypertension) Patient denies medical problems - Surgical History Surgical History: Surgical History (Last Reviewed 09/07/18 @ 14:12 by MARTIN Malik) No history of previous surgery - Family History Family History: Family History (Last Reviewed 08/13/18 @ 19:08 by Soniya Hanson MD) Other Family history unobtainable due to patient's condition - Tobacco History Second Hand Smoke Exposure: No Smoking Status: Never smoker Tobacco Type: Cigarettes - Alcohol History How Often Do You Have a Drink Containing Alcohol: Monthly or less - Substance Use History Substance History: No History of Abuse - Travel History Recent Travel in the [place] Within the Last 8 Weeks: No Recent Travel Out of the Country Within the Last 8 Weeks: No - Immunization History Tetanus Immunization: Unable to Assess Hx Influenza Vaccine This Season: Unable to Assess Medications and Allergies Active Medications: Active Medications Al Hydrox/Mg Hydrox/Simethicone (Mag-Al Plus Susp Liq) 30 ml PO Q6H PRN PRN Reason: DYSPEPSIA Al Hydroxide/Mg Hydroxide (Milk Of Magnesia Liq) 30 ml PO Q12H PRN PRN Reason: Mild Constipation Amlodipine Besylate (Norvasc) 5 mg PO DAILY MARIA L Last Admin: 09/08/18 10:11 Dose: 5 mg Dextrose (D50w Vial) 50 ml IV.PUSH UNSCH PRN PRN Reason: PER HYPOGLYCEMIA PROTOCOL Diphenhydramine HCl (Benadryl) 50 mg PO HS PRN PRN Reason: INSOMNIA Last Admin: 09/07/18 21:14 Dose: 50 mg Glucagon (Glucagon Inj) 1 mg OTHER PRN PRN PRN Reason: for Hypoglycemia Protocol Haloperidol (Haldol) 5 mg PO BID [facility] Last Admin: 09/08/18 10:11 Dose: 5 mg Hydroxyzine HCl (Atarax) 50 mg PO Q6H PRN PRN Reason: ANXIETY Last Admin: 09/08/18 02:17 Dose: 50 mg Insulin Aspart (Novolog Insulin Correctional Sugar Inj) 0 unit SQ ACHS [facility]; Protocol Last Admin: 09/08/18 12:27 Dose: Not Given Lisinopril (Prinivil) 20 mg PO DAILY [facility] Last Admin: 09/08/18 10:11 Dose: 20 mg Allergies Allergy/AdvReac Type Severity Reaction Status Date / Time No Known Allergies Allergy Verified 03/23/18 17:28 Results - Labs CBC & Chem 7: 09/07/18 04:40 09/07/18 04:40 Labs: Laboratory Results - last 24 hr 09/07/18 09/08/18 20:33 11:25 POC Glucose 113 H 90 Exam Vital signs: Intake & Output 09/07/18 09/08/18 09/08/18 18:59 06:59 18:59 Intake Total 360 / 360 Balance 360 / 360 Weight 86.9 kg Intake: Oral 360 / 360 Other: Date of Last Bowel Movement 09/08/18 Weight On Admission 86.9 kg Mental Status Examination Appearance: Disheveled Consciousness: Somnolent (Unable to assess fully due to somnolent) Orientation: Person, Place, Situation Motor Activity: Normal gait Speech: Unremarkable Language: Adequate Fund of Knowledge: Inadequate Attention and Concentration: Easily distracted Memory: Unremarkable Mood: Other (Unable to assess) Affect: Flat Thought Process & Associations: Intact, Disorganized Thought Content: Other (None elicited) Hallucination Type: None Delusion Type: None Suicidal Ideation: No Suicidal Plan: No Suicidal Intention: No Homicidal Ideation: No Homicidal Plan: No Homicidal Intention: No Insight: Poor Judgment: Poor Assessment and Plan - Assessment (1) Paranoid type schizophrenia, chronic state Code(s): F20.0 - Paranoid schizophrenia Status: Acute - Plan Plan: 1. Continue with admission to inpatient psychiatry at [facility]; involuntary/lacking capacity. The patient's uncle will act as proxy decision- maker. 2. Routine unit precautions. 3. Comfort medications ordered for as needed treatment of constipation, heartburn, diarrhea, and mild pain. 4. Hydroxyzine 50mg po q6H prn anxiety/insomnia. 5. Restart Haldol 5 mg p.o. twice a day for schizophrenia. We will consider transitioning to a long-acting injectable form if tolerated and effective. 6. Hospitalist consulted due to patient's history of diabetes as well as worsening anemia. 7. Patient will participate in the unit programming to include group therapies , milieu therapy and recreational therapies. 8. Discharge planning: Patient's uncle will need to be involved in discharge planning as well as the patient's outpatient mental health team. Anticipate need for a long-acting injectable clinic. Estimated LOS: 7 days Justification for Continued Inpatient Stay: Patient remains an elevated risk for self-harm by self neglect due to her psychosis and disorganized thinking but she is also at risk of acting out on her paranoia and hurting others therefore she will require further inpatient stabilization and preparation of a safe discharge plan. Moving patient to a less restrictive environment at this time may result in decompensation.
--- NOTE | 2018-09-08 17:35 | P.CON ---
History of Present Illness Service: [facility] Consult date: 09/08/18 Requesting Physician: Saturnino Wade Reason for Consult: DM, HTN Primary Care Provider: UNKNOWN Chief Complaint: I do not have any medical issues History of Present Illness: Patient is a 57-year-old female with past medical history of diabetes, hypertension, psychiatric history of paranoid schizophrenia who came into the hospital under [employer]. She is now admitted to inpatient psychiatry unit for further evaluation. Consulted for assistance with management of hypertension diabetes. Patient seen and examined today. Reports she has no medical issues or any medical condition. She denies that she has diabetes. She denies that she has hypertension. States that she is not taking any medications at home. States she had surgical intervention at [facility] for a back abscess, otherwise no other surgeries in the past. Denies pain and discomfort. Denies SOB/ dyspnea. Denies chest pain, palpitations, headaches, dizziness. Denies fevers, chills, n/v/d. Denies dysuria. Review of Systems All other systems reviewed negative except as stated in HPI [facility] - History History Provided By: Patient - Medical History Medical History: Medical History (Last Reviewed 09/08/18 @ 17:24 by MARTIN Quezada) Diabetes HTN (hypertension) Patient denies medical problems - Surgical History Surgical History: Surgical History (Last Reviewed 09/08/18 @ 17:24 by MARTIN Quezada) No history of previous surgery - Family History Family History: Family History (Last Reviewed 09/08/18 @ 17:25 by MARTIN Quezada) Other Family history unobtainable due to patient's condition - Social History I have reviewed the patient's Social History: Yes - Tobacco History Second Hand Smoke Exposure: No Smoking Status: Never smoker Tobacco Type: Cigarettes - Alcohol History How Often Do You Have a Drink Containing Alcohol: Monthly or less - Substance Use History Substance History: No History of Abuse - Travel History Recent Travel in the [place] Within the Last 8 Weeks: No Recent Travel Out of the Country Within the Last 8 Weeks: No - Immunization History Tetanus Immunization: Unable to Assess Hx Influenza Vaccine This Season: Unable to Assess Medications and Allergies Active Medications: Active Medications Al Hydrox/Mg Hydrox/Simethicone (Mag-Al Plus Susp Liq) 30 ml PO Q6H PRN PRN Reason: DYSPEPSIA Al Hydroxide/Mg Hydroxide (Milk Of [address]) 30 ml PO Q12H PRN PRN Reason: Mild Constipation Amlodipine Besylate (Norvasc) 5 mg PO DAILY [facility] Last Admin: 09/08/18 10:11 Dose: 5 mg Dextrose (D50w Vial) 50 ml IV.PUSH UNSCH PRN PRN Reason: PER HYPOGLYCEMIA PROTOCOL Diphenhydramine HCl (Benadryl) 50 mg PO HS PRN PRN Reason: INSOMNIA Last Admin: 09/07/18 21:14 Dose: 50 mg Glucagon (Glucagon Inj) 1 mg OTHER PRN PRN PRN Reason: for Hypoglycemia Protocol Haloperidol (Haldol) 5 mg PO BID [facility] Last Admin: 09/08/18 10:11 Dose: 5 mg Hydroxyzine HCl (Atarax) 50 mg PO Q6H PRN PRN Reason: ANXIETY Last Admin: 09/08/18 02:17 Dose: 50 mg Insulin Aspart (Novolog Insulin Correctional Sugar Inj) 0 unit SQ ACHS [facility]; Protocol Last Admin: 09/08/18 16:16 Dose: Not Given Lisinopril (Prinivil) 20 mg PO DAILY [facility] Last Admin: 09/08/18 10:11 Dose: 20 mg Allergies Allergy/AdvReac Type Severity Reaction Status Date / Time No Known Allergies Allergy Verified 03/23/18 17:28 Physical Exam Vital signs: Vital Signs 09/08/18 17:00 Temperature 98.4 F Pulse Rate 92 H Respiratory Rate 18 Blood Pressure 129/61 Pulse Oximetry 99 Intake & Output 09/07/18 09/08/18 09/08/18 18:59 06:59 18:59 Intake Total 360 / 360 Balance 360 / 360 Weight 86.9 kg Intake: Oral 360 / 360 Other: Date of Last Bowel Movement 09/08/18 Weight On Admission 86.9 kg Narrative: GENERAL: This is an AA female, appears older than stated age, in no apparent distress. SKIN: Warm and dry. HEENT: Normocephalic. Pupils equal round and reactive. Nose without bleeding. Airway patent. NECK: Trachea midline. CARDIOVASCULAR: Regular rate and rhythm without murmurs, gallops, or rubs. RESPIRATORY: Clear to auscultation. Breath sounds equal bilaterally. No wheezes , rales, or rhonchi. GASTROINTESTINAL: Abdomen soft, non-tender, nondistended. Bowel Sounds normoactive x4. MUSCULOSKELETAL: Extremities without clubbing, cyanosis. BLE edema +1 NEUROLOGICAL: Awake and alert. No focal neuro deficit. Moves all extremities. Normal speech. Calm. Results - Labs CBC & Chem 7: 09/07/18 04:40 09/07/18 04:40 Labs: Laboratory Results - last 24 hr 09/07/18 09/08/18 09/08/18 20:33 11:25 16:13 POC Glucose 113 H 90 133 H Assessment and Plan - Plan Patient is a 57-year-old female with past medical history of diabetes, hypertension, psychiatric history of paranoid schizophrenia who came into the hospital under [employer]. She is now admitted to inpatient psychiatry unit for further evaluation. Consulted for assistance with management of hypertension diabetes. Paranoid schizophrenia -Managed by psychiatry team -As per note, they will placed the patient in long acting injectables DM 2, uncontrolled, noncompliance with medications Not using insulin, no acute complications -Insulin sliding scale -We will start metformin 500 mg twice daily -Monitor Accu-Cheks HTN -Continue lisinopril, Norvasc -Patient has bilateral lower extremity edema, not impeding her ability to ambulate, monitor for now Anemia, microcytic normochromic -Iron studies last admission 08/12/18, showed Low TIBC -Possibly from chronic disease, monitor for now -May need to be referred to apprentice pattern maker out patient DVT prop early ambulation Full code Thank you for this consultation. We will follow patient with you. Discussed Condition With: Patient, nurse Discharge Planning: DC disposition by primary team
[2018-09-09] MEDS: Insulin NovoLOG Aspart Correctional Sugar Inj SQ SCH ×4 (07:41→21:46)
[2018-09-09] MEDS: amLODIPine 5 MG Tablet PO SCH (08:05)
[2018-09-09] MEDS: Haloperidol 5 MG Tablet PO SCH ×2 (08:05→21:34)
[2018-09-09] MEDS: Lisinopril 20 MG Tablet PO SCH (08:05)
--- NOTE | 2018-09-09 14:33 | P.PNPSY ---
Subjective Chief Complaint: Extremely disorganized and violent behavior Remarks: Patient was seen and case discussed with nursing. Patient is guarded oppositional and evasive during the interview per nursing and through my observations after the interview patient is actively having conversations with herself and responding to internal stimuli. She can get agitated during the day. She is compliant with her medications. Review of Systems All other systems reviewed negative except as stated in HPI Mental Status Examination Appearance: Disheveled Consciousness: Somnolent (Unable to assess fully due to somnolent) Orientation: Person, Place, Situation Motor Activity: Normal gait Speech: Unremarkable Language: Adequate Fund of Knowledge: Inadequate Attention and Concentration: Easily distracted Memory: Unremarkable Mood: Other (Unable to assess) Affect: Flat Thought Process & Associations: Intact, Disorganized Thought Content: Other (None elicited) Hallucination Type: Auditory (Internal stimuli) Delusion Type: Paranoid (Internal stimuli) Suicidal Ideation: No Suicidal Plan: No Suicidal Intention: No Homicidal Ideation: No Homicidal Plan: No Homicidal Intention: No Insight: Poor Judgment: Poor Assessment and Plan - Assessment (1) Paranoid type schizophrenia, chronic state Code(s): F20.0 - Paranoid schizophrenia Status: Acute - Plan Plan: Continue current treatment plan Justification for Continued Inpatient Stay: Patient would decompensate in a less restrictive setting
--- NOTE | 2018-09-09 16:49 | P.PNIM ---
Subjective Interval history: Follow-up visit HTN, DM 2. Patient seen and examined today. Calm and cooperative. As per nursing, compliant with p.o. medications and Accu-Cheks. Denies pain and discomfort. Denies SOB/ dyspnea. Denies chest pain, palpitations, headaches, dizziness. Denies fevers, chills, n/v/d. Denies dysuria. Physical Exam Vital signs: Vital Signs 09/08/18 17:00 09/09/18 06:00 Temperature 98.4 F 97.8 F Pulse Rate 92 H 94 H Respiratory Rate 18 18 Blood Pressure 129/61 140/92 H Pulse Oximetry 99 99 Intake & Output 09/08/18 09/09/18 09/09/18 18:59 06:59 18:59 Intake Total 360 / 360 Balance 360 / 360 Intake: Oral 360 / 360 Other: Date of Last Bowel Movement 09/08/18 09/09/18 Narrative: GENERAL: This is an AA female, appears older than stated age, in no apparent distress. SKIN: Warm and dry. HEENT: Normocephalic. Pupils equal round and reactive. Nose without bleeding. Airway patent. NECK: Trachea midline. CARDIOVASCULAR: Regular rate and rhythm without murmurs, gallops, or rubs. RESPIRATORY: Clear to auscultation. Breath sounds equal bilaterally. No wheezes , rales, or rhonchi. GASTROINTESTINAL: Abdomen soft, non-tender, nondistended. Bowel Sounds normoactive x4. MUSCULOSKELETAL: Extremities without clubbing, cyanosis. BLE edema +1 NEUROLOGICAL: Awake and alert. No focal neuro deficit. Moves all extremities. Normal speech. Calm. Results - Labs CBC & Chem 7: 09/07/18 04:40 09/07/18 04:40 Laboratory Results - last 24 hr 09/08/18 09/09/18 09/09/18 22:08 07:36 11:15 POC Glucose 184 H 141 H 97 Assessment and Plan - Plan Patient is a 57-year-old female with past medical history of diabetes, hypertension, psychiatric history of paranoid schizophrenia who came into the hospital under [employer]. She is now admitted to inpatient psychiatry unit for further evaluation. Consulted for assistance with management of hypertension diabetes. Paranoid schizophrenia -Managed by psychiatry team -As per note, they will placed the patient in long acting injectables DM 2, uncontrolled, noncompliance with medications Not using insulin, no acute complications -Insulin sliding scale -metformin 500 mg twice daily. No adverse reaction. Diabetic diet. -Monitor Accu-Cheks HTN -Continue lisinopril, Norvasc -Patient has bilateral lower extremity edema, not impeding her ability to ambulate, monitor for now Monitor BP trend. Anemia, microcytic normochromic -Iron studies last admission 08/12/18, showed Low TIBC -Possibly from chronic disease, monitor for now -May need to be referred to preservationist out patient DVT prop early ambulation Full code Discussed Condition With: Patient, nursing Discharge Planning: DC disposition by primary team
--- NOTE | 2018-09-09 16:59 | P.CONPSY ---
Provisional Diagnosis Admission Date: September 07, 2018 10:33 Pickens I.: Schizophrenia chronic paranoid type Pickens III.: Type 2 diabetes, chronic anemia microcytic type History of Present Illness Service: Psychiatry Consult date: 09/09/18 Requesting Physician: Saturnino Wade Reason for Consult: Second opinion petition supporting [employer] Primary Care Provider: UNKNOWN Chief Complaint: I do not have any medical issues History of Present Illness: Patient is a 57-year-old F Faroese female admitted to Dr. Dee service under the [employer] act Dr. Dee has done first opinion petition supporting [employer]. I agree. Patient meets criteria for involuntary psychiatric hospitalization of the [employer]. Patient seen by me in the gil with nurse Jennyfer. Patient is confused disoriented psychotic with disturbing auditory hallucinations Review of Systems All other systems reviewed negative except as stated in HPI [facility] - History History Provided By: Patient - Medical History Medical History: Medical History (Last Reviewed 09/09/18 @ 16:57 by Vasquez Dsouza MD) Diabetes HTN (hypertension) Patient denies medical problems - Surgical History Surgical History: Surgical History (Last Reviewed 09/09/18 @ 16:57 by Vasquez Dsouza MD) No history of previous surgery - Family History Family History: Family History (Last Reviewed 09/09/18 @ 16:57 by Vasquez Dsouza MD) Other Family history unobtainable due to patient's condition - Social History I have reviewed the patient's Social History: Yes - Tobacco History Second Hand Smoke Exposure: No Smoking Status: Never smoker Tobacco Type: Cigarettes - Alcohol History How Often Do You Have a Drink Containing Alcohol: Monthly or less - Substance Use History Substance History: No History of Abuse - Travel History Recent Travel in the [place] Within the Last 8 Weeks: No Recent Travel Out of the Country Within the Last 8 Weeks: No - Immunization History Tetanus Immunization: Unable to Assess Hx Influenza Vaccine This Season: Unable to Assess Medications and Allergies Active Medications: Active Medications Al Hydrox/Mg Hydrox/Simethicone (Mag-Al Plus Susp Liq) 30 ml PO Q6H PRN PRN Reason: DYSPEPSIA Al Hydroxide/Mg Hydroxide (Milk Of Magnesia Liq) 30 ml PO Q12H PRN PRN Reason: Mild Constipation Amlodipine Besylate (Norvasc) 5 mg PO DAILY [facility] Last Admin: 09/09/18 08:05 Dose: 5 mg Dextrose (D50w Vial) 50 ml IV.PUSH UNSCH PRN PRN Reason: PER HYPOGLYCEMIA PROTOCOL Diphenhydramine HCl (Benadryl) 50 mg PO HS PRN PRN Reason: INSOMNIA Last Admin: 09/08/18 21:49 Dose: 50 mg Glucagon (Glucagon Inj) 1 mg OTHER PRN PRN PRN Reason: for Hypoglycemia Protocol Haloperidol (Haldol) 5 mg PO BID [facility] Last Admin: 09/09/18 08:05 Dose: 5 mg Hydroxyzine HCl (Atarax) 50 mg PO Q6H PRN PRN Reason: ANXIETY Last Admin: 09/08/18 02:17 Dose: 50 mg Insulin Aspart (Novolog Insulin Correctional Sugar Inj) 0 unit SQ ACHS [facility]; Protocol Last Admin: 09/09/18 12:14 Dose: Not Given Lisinopril (Prinivil) 20 mg PO DAILY [facility] Last Admin: 09/09/18 08:05 Dose: 20 mg Metformin HCl (Glucophage) 500 mg PO BIDPC [facility] Last Admin: 09/09/18 08:05 Dose: 500 mg Allergies Allergy/AdvReac Type Severity Reaction Status Date / Time No Known Allergies Allergy Verified 03/23/18 17:28 Exam Vital signs: Vital Signs 09/08/18 17:00 09/09/18 06:00 Temperature 98.4 F 97.8 F Pulse Rate 92 H 94 H Respiratory Rate 18 18 Blood Pressure 129/61 140/92 H Pulse Oximetry 99 99 Intake & Output 09/08/18 09/09/18 09/09/18 18:59 06:59 18:59 Intake Total 360 / 360 Balance 360 / 360 Intake: Oral 360 / 360 Other: Date of Last Bowel Movement 09/08/18 09/09/18 Narrative: Patient sitting quietly in the gil with me she is in no acute distress, patient no respiratory distress. No complaints of chest pain or abdominal pain. Patient moving all 4 extremities without difficulty Mental Status Examination Appearance: Disheveled Consciousness: Alert Orientation: Person, Place, Situation Motor Activity: Normal gait Speech: Unremarkable, Hesitant (Slightly) Language: Adequate Fund of Knowledge: Inadequate Attention and Concentration: Easily distracted Memory: Unremarkable Mood: Other (Somewhat restricted and guarded) Affect: Other (Decreased range and intensity) Thought Process & Associations: Intact, Disorganized Thought Content: Other (None elicited) Hallucination Type: Auditory (Internal stimuli) Delusion Type: Paranoid (Internal stimuli) Suicidal Ideation: No Suicidal Plan: No Suicidal Intention: No Homicidal Ideation: No Homicidal Plan: No Homicidal Intention: No Insight: Poor Judgment: Poor Assessment and Plan - Assessment (1) Paranoid type schizophrenia, chronic state Code(s): F20.0 - Paranoid schizophrenia Status: Acute - Plan Plan: Patient does not meet [employer] criteria thus I will cosign second opinion petition supporting [employer] act Justification for Continued Inpatient Stay: At this time patient with decompensated placed in a lower level of care Discharge Planning: To be determined
[2018-09-10] MEDS: Insulin NovoLOG Aspart Correctional Sugar Inj SQ SCH ×4 (08:00→21:09)
[2018-09-10 09:14] LABS: Carbon Dioxide 30.7 meq/L (21.0-32.0); Chol/HDL Ratio 3.43 Ratio; HDL Cholesterol 55.3 mg/dL (40.0-60.0); Potassium 4.5 meq/L (3.5-5.1)
[2018-09-10] MEDS: amLODIPine 5 MG Tablet PO SCH (10:36)
[2018-09-10] MEDS: Haloperidol 5 MG Tablet PO SCH ×2 (10:36→21:10)
[2018-09-10] MEDS: Lisinopril 20 MG Tablet PO SCH (10:37)
[2018-09-10 12:47] LABS: Hemoglobin A1c 7.5 % (4.3-6.0)
--- NOTE | 2018-09-10 15:29 | P.PNPSY ---
Subjective Chief Complaint: Extremely disorganized and violent behavior Remarks: Reviewed electronic medical records and discussed case with staff. Follow-up was conducted in the hallway with KRUPA Berry present. Her nurse reports that she is been cooperative and compliant and exhibited no behaviors today. Patient mood is good affect is euthymic. She states that she is sleeping and eating well and that she feels fine. However, we start discussing her family at home her good mood quickly evaporates and she becomes suspicious. She states , "the people that are there are not who they say they are". She denies having a sister named Maritza when asked about her uncle she states, "that uncle is not really my uncle". She advises that I should check into it as the people who are calling themselves her family are impostors. Mental Status Examination Appearance: Disheveled Consciousness: Alert Orientation: Person, Place, Situation Motor Activity: Normal gait Speech: Unremarkable, Hesitant (Slightly) Language: Adequate Fund of Knowledge: Inadequate Attention and Concentration: Easily distracted Memory: Unremarkable Mood: Other (Somewhat restricted and guarded) Affect: Other (Decreased range and intensity) Thought Process & Associations: Intact, Disorganized Thought Content: Other (None elicited) Hallucination Type: Auditory (Internal stimuli) Delusion Type: Paranoid (Internal stimuli) Suicidal Ideation: No Suicidal Plan: No Suicidal Intention: No Homicidal Ideation: No Homicidal Plan: No Homicidal Intention: No Insight: Poor Judgment: Poor Assessment and Plan - Assessment (1) Schizophrenia Code(s): F20.9 - Schizophrenia, unspecified Status: Acute - Plan Plan: Patient will be reevaluated by the attending psychiatrist. Continue with current treatment plan. Justification for Continued Inpatient Stay: Moving this patient to a less restrictive environment would likely result in decompensation.
--- NOTE | 2018-09-10 17:31 | P.PNIM ---
Subjective Interval history: Follow-up visit HTN, DM 2. Patient seen and examined today. Calm and cooperative. States she been doing well. Denies pain and discomfort. Denies SOB/ dyspnea. Denies chest pain, palpitations, headaches, dizziness. Denies fevers, chills, n/v/d. Denies dysuria. Physical Exam Vital signs: Vital Signs 09/10/18 06:00 09/10/18 16:01 Temperature 98 F 98.0 F Pulse Rate 97 H 91 H Respiratory Rate 17 18 Blood Pressure 152/83 H 152/88 H Pulse Oximetry 100 95 Intake & Output 09/09/18 09/10/18 09/10/18 18:59 06:59 18:59 Other: Date of Last Bowel Movement 09/09/18 Narrative: GENERAL: This is an AA female, appears older than stated age, in no apparent distress. SKIN: Warm and dry. HEENT: Normocephalic. Pupils equal round and reactive. Nose without bleeding. Airway patent. NECK: Trachea midline. CARDIOVASCULAR: Regular rate and rhythm without murmurs, gallops, or rubs. RESPIRATORY: Clear to auscultation. Breath sounds equal bilaterally. No wheezes , rales, or rhonchi. GASTROINTESTINAL: Abdomen soft, non-tender, nondistended. Bowel Sounds normoactive x4. MUSCULOSKELETAL: Extremities without clubbing, cyanosis. BLE edema +1 NEUROLOGICAL: Awake and alert. No focal neuro deficit. Moves all extremities. Normal speech. Calm. Results - Labs CBC & Chem 7: 09/07/18 04:40 09/10/18 08:25 Laboratory Results - last 24 hr 09/10/18 09/10/18 09/10/18 07:41 08:25 08:25 Sodium 139 Potassium 4.5 Chloride 102 Carbon Dioxide 30.7 Anion Gap 6 BUN 13 Creatinine 0.94 Estimated GFR 74 L POC Glucose 124 H Random Glucose 136 H Hemoglobin A1c 7.5 H Calcium 9.0 Triglycerides 115 Cholesterol 190 LDL Cholesterol, Calc 112 H HDL Cholesterol 55.3 Cholesterol/HDL Ratio 3.43 09/10/18 09/10/18 12:05 16:27 Sodium Potassium Chloride Carbon Dioxide Anion Gap BUN Creatinine Estimated GFR POC Glucose 135 H 172 H Random Glucose Hemoglobin A1c Calcium Triglycerides Cholesterol LDL Cholesterol, Calc HDL Cholesterol Cholesterol/HDL Ratio Assessment and Plan - Plan Patient is a 57-year-old female with past medical history of diabetes, hypertension, psychiatric history of paranoid schizophrenia who came into the hospital under [employer] act PD. She is now admitted to inpatient psychiatry unit for further evaluation. Consulted for assistance with management of hypertension diabetes. Paranoid schizophrenia -Managed by psychiatry team -As per note, they will placed the patient in long acting injectables DM 2, uncontrolled, noncompliance with medications Not using insulin, no acute complications -Insulin sliding scale -metformin 500 mg twice daily. No adverse reaction. Diabetic diet. -Monitor Accu-Cheks HTN -Continue lisinopril, Norvasc -Patient has bilateral lower extremity edema, not impeding her ability to ambulate, monitor for now -Monitor BP trend. Slightly elevated but will not change medication regimen as patient is now compliant with taking it. Anemia, microcytic normochromic -Iron studies last admission 08/12/18, showed Low TIBC -Possibly from chronic disease, monitor for now -May need to be referred to reflesher out patient DVT prop early ambulation Full code Stable from Hospitalist standpoint. We will sign off. Reconsult as needed. Thank you. Discussed Condition With: Patient, nurse Discharge Planning: DC disposition by primary team
[2018-09-11] MEDS: Haloperidol 5 MG Tablet PO SCH (08:15)
[2018-09-11] MEDS: amLODIPine 5 MG Tablet PO SCH (08:15)
[2018-09-11] MEDS: Lisinopril 20 MG Tablet PO SCH (08:15)
[2018-09-11] MEDS: Insulin NovoLOG Aspart Correctional Sugar Inj SQ SCH ×4 (08:17→20:38)
--- NOTE | 2018-09-11 12:42 | P.PNPSY ---
Subjective Chief Complaint: Extremely disorganized and violent behavior Remarks: Patient seen for follow-up, chart reviewed, patient discussed with nursing staff ; we reviewed the patient's mood, thoughts, and behaviors from overnight and this morning. Nursing describes the patient is disorganized but pleasant with no behavioral incidents. Patient was seen by psychiatric coverage over the weekend and reported that she believes her families are impostors. Patient was seen this morning on the unit and observed to have a labile affect. She was guarded with the interviewer but acknowledged that she was admitted so that her psychotropics could be stabilized. We discussed the potential benefit from an increase to her Haldol and she agreed. She denies any current auditory or visual hallucinations. She denied any homicidal or suicidal ideations. Patient reports that she feels safe on the unit but it is unclear whether she feels safe going back home to family. Review of Systems All other systems reviewed negative except as stated in HPI Mental Status Examination Appearance: Appropriate Consciousness: Alert Orientation: Person, Place, Situation Motor Activity: Normal gait Speech: Unremarkable, Hesitant (Slightly) Language: Adequate Fund of Knowledge: Inadequate Attention and Concentration: Easily distracted Memory: Unremarkable Mood: Other (Somewhat restricted and guarded) Affect: Other (Decreased range and intensity) Thought Process & Associations: Intact, Disorganized Thought Content: Other (None elicited) Hallucination Type: None Delusion Type: Paranoid (Internal stimuli) Suicidal Ideation: No Suicidal Plan: No Suicidal Intention: No Homicidal Ideation: No Homicidal Plan: No Homicidal Intention: No Insight: Poor Judgment: Poor Assessment and Plan - Assessment (1) Paranoid type schizophrenia, chronic state Code(s): F20.0 - Paranoid schizophrenia Status: Acute - Plan Plan: Initial assessment and plan: Patient remains an elevated risk for self-harm by self neglect due to her psychosis and disorganized thinking but she is also at risk of acting out on her paranoia and hurting others therefore she will require further inpatient stabilization and preparation of a safe discharge plan. Moving patient to a less restrictive environment at this time may result in decompensation. 1. Continue with admission to inpatient psychiatry at [facility]; involuntary/lacking capacity. The patient's uncle will act as proxy decision- maker. 2. Routine unit precautions. 3. Comfort medications ordered for as needed treatment of constipation, heartburn, diarrhea, and mild pain. 4. Hydroxyzine 50mg po q6H prn anxiety/insomnia. 5. Restart Haldol 5 mg p.o. twice a day for schizophrenia. We will consider transitioning to a long-acting injectable form if tolerated and effective. 6. Hospitalist consulted due to patient's history of diabetes as well as worsening anemia. 7. Patient will participate in the unit programming to include group therapies , milieu therapy and recreational therapies. 8. Discharge planning: Patient's uncle will need to be involved in discharge planning as well as the patient's outpatient mental health team. Anticipate need for a long-acting injectable clinic. Estimated LOS: 7 days 09/11/2018: Fair response to treatment; the patient cooperated with the restart of her medications and was generally cooperative over the weekend. She continues to demonstrate a disorganized thought process and paranoid behaviors to include delusions that her family has been replaced by impostors. She has tolerated treatment with Haldol 5 mg twice a day and agrees to increase further efficacy of her psychosis. Continue inpatient psychiatric treatment and stabilization. Increase Haldol to 10 mg twice a day for treatment of psychosis. Anticipate transition to a Haldol Decanoate shot prior to discharge. Justification for Continued Inpatient Stay: Patient remains an elevated risk for self-harm by self neglect and will require further inpatient stabilization and preparation of a safe discharge plan. Moving patient to a less restrictive environment at this time may result in decompensation.
[2018-09-12] MEDS: Insulin NovoLOG Aspart Correctional Sugar Inj SQ SCH ×4 (07:20→20:33)
[2018-09-12] MEDS: amLODIPine 5 MG Tablet PO SCH (08:16)
[2018-09-12] MEDS: Lisinopril 20 MG Tablet PO SCH (08:16)
--- NOTE | 2018-09-12 08:46 | P.TTN ---
- Patient Problems Problems: 1. Discharge planning 2. Medication compliance 3. Knowledge deficit 4. Lack of coping skills - Progress Toward Goals Provider Present: Other (Rola: New patient will assess today.) Provider Input: 09/12/18 Per pt had her haldol increased yesterday and he might transition her into the injectable soon. Dr. Weeks. Nurse Input: 09/12/18 Per RN pt is compliant with medication, has been staying in the day room. No beh issues at this time. Psychiatric Counselors Present: Dominik Sutton Jr., [facility] (Will meet with patient to come up with safe discharge plan.), Other Psychiatric Therapist Input: 09/12/18 Therapist f/u with pt's caregiver (uncle) and he is willing to get pt back upon d/c. Pt also std she will go back with her uncle. Group Spec/RT/OT/TREVINO Present: Tavo Mason OT, BELINDA Bradley (New patient will encourage to attend rec groups) Group Spec/RT/OT/TREVINO Input: 09/12/18 Pt has not been attending groups despite staff encouragement. - Documentation Teaching Recipient: Patient
--- NOTE | 2018-09-12 12:22 | P.PNPSY ---
Subjective Chief Complaint: Extremely disorganized and violent behavior Remarks: Patient seen for follow-up, chart reviewed, patient discussed with nursing staff ; we reviewed the patient's mood, thoughts, and behaviors from overnight and this morning. Nurse reports that the patient slept approximately 8 hours overnight. She had a good visit with her family on the evening shift. She remains religiously preoccupied and seems to respond to internal stimuli but compliant with meds and more pleasant in her interactions today. Patient was seen on the unit after breakfast and she was indeed more pleasant with the provider. She expressed satisfaction with her current medications and reports feeling safe on the unit. She denied any auditory or visual hallucinations but she continues to express a belief that the family members at home have been replaced. She was asked whether she felt comfortable going back home with these replacement family members she laughed and said, "we will be gone soon and my real family will return." Review of Systems All other systems reviewed negative except as stated in HPI Mental Status Examination Appearance: Appropriate Consciousness: Alert Orientation: Person, Place, Situation Motor Activity: Normal gait Speech: Unremarkable Language: Adequate Fund of Knowledge: Inadequate Attention and Concentration: Easily distracted Memory: Unremarkable Mood: Good Affect: Appropriate Thought Process & Associations: Intact, Disorganized Thought Content: Delusional Hallucination Type: None Delusion Type: Bizarre Suicidal Ideation: No Suicidal Plan: No Suicidal Intention: No Homicidal Ideation: No Homicidal Plan: No Homicidal Intention: No Insight: Poor Judgment: Poor Assessment and Plan - Assessment (1) Paranoid type schizophrenia, chronic state Code(s): F20.0 - Paranoid schizophrenia Status: Acute - Plan Plan: Initial assessment and plan: Patient remains an elevated risk for self-harm by self neglect due to her psychosis and disorganized thinking but she is also at risk of acting out on her paranoia and hurting others therefore she will require further inpatient stabilization and preparation of a safe discharge plan. Moving patient to a less restrictive environment at this time may result in decompensation. 1. Continue with admission to inpatient psychiatry at [facility]; involuntary/lacking capacity. The patient's uncle will act as proxy decision- maker. 2. Routine unit precautions. 3. Comfort medications ordered for as needed treatment of constipation, heartburn, diarrhea, and mild pain. 4. Hydroxyzine 50mg po q6H prn anxiety/insomnia. 5. Restart Haldol 5 mg p.o. twice a day for schizophrenia. We will consider transitioning to a long-acting injectable form if tolerated and effective. 6. Hospitalist consulted due to patient's history of diabetes as well as worsening anemia. 7. Patient will participate in the unit programming to include group therapies , milieu therapy and recreational therapies. 8. Discharge planning: Patient's uncle will need to be involved in discharge planning as well as the patient's outpatient mental health team. Anticipate need for a long-acting injectable clinic. Estimated LOS: 7 days 09/11/2018: Fair response to treatment; the patient cooperated with the restart of her medications and was generally cooperative over the weekend. She continues to demonstrate a disorganized thought process and paranoid behaviors to include delusions that her family has been replaced by impostors. She has tolerated treatment with Haldol 5 mg twice a day and agrees to increase further efficacy of her psychosis. Continue inpatient psychiatric treatment and stabilization. Increase Haldol to 10 mg twice a day for treatment of psychosis. Anticipate transition to a Haldol Decanoate shot prior to discharge. 09/12/2018: Good response to treatment; the patient is no longer agitated or aggressive had a full night's rest. She remains religiously preoccupied as well as delusional about her family being impostors but she denies paranoia and is willing to plan for discharge back home. Patient is tolerating her Haldol 10 mg twice a day and would be appropriate for transition to Haldol Decanoate shot prior to discharge. Continue inpatient psychiatric treatment and stabilization. Continue Haldol to 10 mg twice a day for treatment of psychosis. Anticipate transition to a Haldol Decanoate shot prior to discharge. Anticipate discharge by the end of this week. Justification for Continued Inpatient Stay: Patient remains an elevated risk for self-harm by self neglect and risk of harm to others through her aggression as evidenced on admission and therefore will require further inpatient stabilization and preparation of a safe discharge plan. Moving patient to a less restrictive environment at this time may result in decompensation.
[2018-09-13] MEDS: Insulin NovoLOG Aspart Correctional Sugar Inj SQ SCH ×4 (08:30→20:35)
[2018-09-13] MEDS: Lisinopril 20 MG Tablet PO SCH ×2 (09:17→10:09)
[2018-09-13] MEDS: amLODIPine 5 MG Tablet PO SCH ×2 (09:17→10:09)
--- NOTE | 2018-09-13 15:33 | P.PNPSY ---
Subjective Chief Complaint: Extremely disorganized and violent behavior Remarks: Patient seen for follow-up, chart reviewed, patient discussed with nursing staff ; we reviewed the patient's mood, thoughts, and behaviors from overnight and this morning. There is reports the patient a very restless night. She is talking to herself at times and angry when redirected back to her room. Patient is described as paranoid confused and delusional and after meeting with her family and family reports there is scared to take her home any time soon. Patient was seen sitting in the day room talking to herself throughout the day. When approached she asked the provider if he was the splicing machine operator automatic. She was asked questions about orientation and she actually was oriented x4. She was asked about the plan to convert her to a decanoate shot of the Haldol but she reports a fear of getting shots because she believes that she will get injected with the ghosts of animals. She denied any current homicidal or suicidal ideations and she denied any auditory hallucinations however she did seem to respond to internal stimuli throughout the day. Mental Status Examination Appearance: Appropriate Consciousness: Alert Orientation: Person, Place, Situation Motor Activity: Normal gait Speech: Unremarkable Language: Adequate Fund of Knowledge: Inadequate Attention and Concentration: Easily distracted Memory: Unremarkable Mood: Anxious Affect: Flat Thought Process & Associations: Loose associations, Disorganized Thought Content: Delusional Hallucination Type: None Delusion Type: Bizarre, Paranoid Suicidal Ideation: No Suicidal Plan: No Suicidal Intention: No Homicidal Ideation: No Homicidal Plan: No Homicidal Intention: No Insight: Poor Judgment: Poor Assessment and Plan - Assessment (1) Paranoid type schizophrenia, chronic state Code(s): F20.0 - Paranoid schizophrenia Status: Acute - Plan Plan: Initial assessment and plan: Patient remains an elevated risk for self-harm by self neglect due to her psychosis and disorganized thinking but she is also at risk of acting out on her paranoia and hurting others therefore she will require further inpatient stabilization and preparation of a safe discharge plan. Moving patient to a less restrictive environment at this time may result in decompensation. 1. Continue with admission to inpatient psychiatry at [facility]; involuntary/lacking capacity. The patient's uncle will act as proxy decision- maker. 2. Routine unit precautions. 3. Comfort medications ordered for as needed treatment of constipation, heartburn, diarrhea, and mild pain. 4. Hydroxyzine 50mg po q6H prn anxiety/insomnia. 5. Restart Haldol 5 mg p.o. twice a day for schizophrenia. We will consider transitioning to a long-acting injectable form if tolerated and effective. 6. Hospitalist consulted due to patient's history of diabetes as well as worsening anemia. 7. Patient will participate in the unit programming to include group therapies , milieu therapy and recreational therapies. 8. Discharge planning: Patient's uncle will need to be involved in discharge planning as well as the patient's outpatient mental health team. Anticipate need for a long-acting injectable clinic. Estimated LOS: 7 days 09/11/2018: Fair response to treatment; the patient cooperated with the restart of her medications and was generally cooperative over the weekend. She continues to demonstrate a disorganized thought process and paranoid behaviors to include delusions that her family has been replaced by impostors. She has tolerated treatment with Haldol 5 mg twice a day and agrees to increase further efficacy of her psychosis. Continue inpatient psychiatric treatment and stabilization. Increase Haldol to 10 mg twice a day for treatment of psychosis. Anticipate transition to a Haldol Decanoate shot prior to discharge. 09/12/2018: Good response to treatment; the patient is no longer agitated or aggressive had a full night's rest. She remains religiously preoccupied as well as delusional about her family being impostors but she denies paranoia and is willing to plan for discharge back home. Patient is tolerating her Haldol 10 mg twice a day and would be appropriate for transition to Haldol Decanoate shot prior to discharge. Continue inpatient psychiatric treatment and stabilization. Continue Haldol to 10 mg twice a day for treatment of psychosis. Anticipate transition to a Haldol Decanoate shot prior to discharge. Anticipate discharge by the end of this week. 09/13/2018: The patient regressed in her response to treatment today; she had a restless night sleep and then was more agitated and responding to internal stimuli throughout the day. Patient's Haldol had just been increased 2 days ago and may require more time for a therapeutic response. A call was placed to her uncle and sister who are acting proxy decision-maker's to see about informed consent for Haldol IM should she refuse her oral dose but a message had to be left. Patient is planned for [place] act [place] tomorrow and will need a guardian advocate for medical decision making as well as continuation of her involuntary hospital stay. Justification for Continued Inpatient Stay: Patient remains an elevated risk for self-harm by self neglect and harm to others through aggressive behavior and acting out on her paranoia therefore she will require further inpatient stabilization and preparation of a safe discharge plan. Moving patient to a less restrictive environment at this time may result in decompensation.
[2018-09-14] MEDS: Lisinopril 20 MG Tablet PO SCH (08:19)
[2018-09-14] MEDS: Insulin NovoLOG Aspart Correctional Sugar Inj SQ SCH ×4 (08:19→20:37)
[2018-09-14] MEDS: amLODIPine 5 MG Tablet PO SCH (08:19)
--- NOTE | 2018-09-14 14:03 | P.PNPSY ---
Subjective Chief Complaint: Extremely disorganized and violent behavior Remarks: Patient seen for follow-up, chart reviewed, patient discussed with nursing staff ; we reviewed the patient's mood, thoughts, and behaviors from overnight and this morning. Nurse reports the patient slept 6 hours overnight and evening shift reports no behavioral problems she was calm cooperative and social with peers. The patient attended [employer] act court this morning and she was very disorganized, interrupted the proceedings at times but generally redirectable. She continued to insist that her family are impostors but she denied any thoughts of harm to self or others. She denied that she was hearing voices despite observations that she seemed to be responding to internal stimuli. She remains cooperative with her medications. Mental Status Examination Appearance: Appropriate Consciousness: Alert Orientation: Person, Place, Situation Motor Activity: Normal gait Speech: Unremarkable Language: Adequate Fund of Knowledge: Inadequate Attention and Concentration: Easily distracted Memory: Unremarkable Mood: Anxious Affect: Flat Thought Process & Associations: Loose associations, Disorganized Thought Content: Delusional Hallucination Type: None Delusion Type: Bizarre, Paranoid Suicidal Ideation: No Suicidal Plan: No Suicidal Intention: No Homicidal Ideation: No Homicidal Plan: No Homicidal Intention: No Insight: Poor Judgment: Poor Assessment and Plan - Assessment (1) Paranoid type schizophrenia, chronic state Code(s): F20.0 - Paranoid schizophrenia Status: Acute - Plan Plan: Initial assessment and plan: Patient remains an elevated risk for self-harm by self neglect due to her psychosis and disorganized thinking but she is also at risk of acting out on her paranoia and hurting others therefore she will require further inpatient stabilization and preparation of a safe discharge plan. Moving patient to a less restrictive environment at this time may result in decompensation. 1. Continue with admission to inpatient psychiatry at [facility]; involuntary/lacking capacity. The patient's uncle will act as proxy decision- maker. 2. Routine unit precautions. 3. Comfort medications ordered for as needed treatment of constipation, heartburn, diarrhea, and mild pain. 4. Hydroxyzine 50mg po q6H prn anxiety/insomnia. 5. Restart Haldol 5 mg p.o. twice a day for schizophrenia. We will consider transitioning to a long-acting injectable form if tolerated and effective. 6. Hospitalist consulted due to patient's history of diabetes as well as worsening anemia. 7. Patient will participate in the unit programming to include group therapies , milieu therapy and recreational therapies. 8. Discharge planning: Patient's uncle will need to be involved in discharge planning as well as the patient's outpatient mental health team. Anticipate need for a long-acting injectable clinic. Estimated LOS: 7 days 09/11/2018: Fair response to treatment; the patient cooperated with the restart of her medications and was generally cooperative over the weekend. She continues to demonstrate a disorganized thought process and paranoid behaviors to include delusions that her family has been replaced by impostors. She has tolerated treatment with Haldol 5 mg twice a day and agrees to increase further efficacy of her psychosis. Continue inpatient psychiatric treatment and stabilization. Increase Haldol to 10 mg twice a day for treatment of psychosis. Anticipate transition to a Haldol Decanoate shot prior to discharge. 09/12/2018: Good response to treatment; the patient is no longer agitated or aggressive had a full night's rest. She remains religiously preoccupied as well as delusional about her family being impostors but she denies paranoia and is willing to plan for discharge back home. Patient is tolerating her Haldol 10 mg twice a day and would be appropriate for transition to Haldol Decanoate shot prior to discharge. Continue inpatient psychiatric treatment and stabilization. Continue Haldol to 10 mg twice a day for treatment of psychosis. Anticipate transition to a Haldol Decanoate shot prior to discharge. Anticipate discharge by the end of this week. 09/13/2018: The patient regressed in her response to treatment today; she had a restless night sleep and then was more agitated and responding to internal stimuli throughout the day. Patient's Haldol had just been increased 2 days ago and may require more time for a therapeutic response. A call was placed to her uncle and sister who are acting proxy decision-maker's to see about informed consent for Haldol IM should she refuse her oral dose but a message had to be left. Patient is planned for [place] tomorrow and will need a guardian advocate for medical decision making as well as continuation of her involuntary hospital stay. 09/14/2018: Fair response to treatment; patient had improved behaviors yesterday and she seems to have tolerated the increase of the Haldol but she remains delusional and easily agitated and will require continued inpatient observation and treatment which was supported by a entertainer or variety artist's order in the [place] act court. Contact was made with her sister and power of consumer attorney, Mr. Stack, and we discussed risks benefits side effects and alternative treatments and they gave permission to continue with the increased dose of Haldol 10 mg twice a day with the opportunity to increase up to 15 mg twice a day or 3 times a day if indicated clinically. They also agreed to the use of Haldol decanoate with doses up to 100 mg every 28 days to be considered once a stable oral dose is obtained. Continue inpatient psychiatric treatment and stabilization, involuntary status court ordered. Continue Haldol 10 mg twice a day for treatment of psychosis; this dose had been increased less than 48 hours ago and will need more time to achieve therapeutic response versus therapeutic failure. Discharge plan: The patient's POA Mr. Stack is supportive of patient coming home once psychosis is stabilized and plan is to transition to monthly Haldol injections once a stable dose is established. Justification for Continued Inpatient Stay: Patient remains an elevated risk for self-harm by self neglect and risk of harm to others through aggressive responses to her paranoid delusions and will require further inpatient stabilization and preparation of a safe discharge plan. Moving patient to a less restrictive environment at this time may result in decompensation.
[2018-09-15] MEDS: Lisinopril 20 MG Tablet PO SCH (08:06)
[2018-09-15] MEDS: amLODIPine 5 MG Tablet PO SCH ×2 (08:06→08:07)
[2018-09-15] MEDS: Insulin NovoLOG Aspart Correctional Sugar Inj SQ SCH ×4 (08:17→20:55)
--- NOTE | 2018-09-15 08:43 | P.TTN ---
- Patient Problems Problems: 1. Discharge planning 2. Medication compliance 3. Knowledge deficit 4. Lack of coping skills - Progress Toward Goals Provider Present: Other (Rola: New patient will assess today.) Provider Input: 09/15/18 Per MD pt still psychotic and pt is not coming around. MD obtained consent to continue making changes on medication. 09/12/18 Per MD pt had her haldol increased yesterday and he might transition her into the injectable soon. Dr. Weeks. Nurse Input: 09/15/18 Per RN pt has not shown any behavior issues, issues with med a few days ago but is compliant at this time. 09/12/18 Per RN pt is compliant with medication, has been staying in the day room. No beh issues at this time. Psychiatric Counselors Present: Dominik Sutton Jr., [facility] (Will meet with patient to come up with safe discharge plan.), Other Psychiatric Therapist Input: 09/15/18 Therapist spoke with pt's uncle and he wants pt back with him upon d/c. 09/12/18 Therapist f/u with pt's caregiver ( uncle) and he is willing to get pt back upon d/c. Pt also std she will go back with her uncle. Group Spec/RT/OT/TREVINO Present: Tavo Mason OT, BELINDA Bradley (New patient will encourage to attend rec groups) Group Spec/RT/OT/TREVINO Input: 09/15/18 Pt continues to not go to group despite constant encouragement from staff. 09/12/18 Pt has not been attending groups despite staff encouragement. - Documentation Teaching Recipient: Family
--- NOTE | 2018-09-15 10:53 | P.PNPSY ---
Subjective Chief Complaint: Extremely disorganized and violent behavior Remarks: Patient seen for follow-up, chart reviewed, patient discussed with nursing staff ; we reviewed the patient's mood, thoughts, and behaviors from overnight and this morning. Nurse reports the patient slept 7 hours overnight. She is described as delusional and disorganized but redirectable. She is compliant with meds with reassurance. Patient became agitated as provider approached for daily assessment. She was talking to herself rapidly and she walked away from provider and refused to meet. Patient's affect appeared dysphoric. Mental Status Examination Appearance: Appropriate Consciousness: Alert Orientation: Person, Place, Situation Motor Activity: Normal gait Speech: Pressured, Other (Difficult to understand what she is saying to herself) Language: Adequate Fund of Knowledge: Inadequate Attention and Concentration: Easily distracted Memory: Unremarkable Mood: Other (Unable to assess) Affect: Blunt (Appeared dysphoric) Thought Process & Associations: Loose associations, Disorganized Thought Content: Delusional (Per nursing report and patient's behavior is consistent paranoia) Hallucination Type: None Delusion Type: Bizarre, Paranoid Suicidal Ideation: No Suicidal Plan: No Suicidal Intention: No Homicidal Ideation: No Homicidal Plan: No Homicidal Intention: No Insight: Poor Judgment: Poor Assessment and Plan - Assessment (1) Paranoid type schizophrenia, chronic state Code(s): F20.0 - Paranoid schizophrenia Status: Acute - Plan Plan: Initial assessment and plan: Patient remains an elevated risk for self-harm by self neglect due to her psychosis and disorganized thinking but she is also at risk of acting out on her paranoia and hurting others therefore she will require further inpatient stabilization and preparation of a safe discharge plan. Moving patient to a less restrictive environment at this time may result in decompensation. 1. Continue with admission to inpatient psychiatry at [facility]; involuntary/lacking capacity. The patient's uncle will act as proxy decision- maker. 2. Routine unit precautions. 3. Comfort medications ordered for as needed treatment of constipation, heartburn, diarrhea, and mild pain. 4. Hydroxyzine 50mg po q6H prn anxiety/insomnia. 5. Restart Haldol 5 mg p.o. twice a day for schizophrenia. We will consider transitioning to a long-acting injectable form if tolerated and effective. 6. Hospitalist consulted due to patient's history of diabetes as well as worsening anemia. 7. Patient will participate in the unit programming to include group therapies , milieu therapy and recreational therapies. 8. Discharge planning: Patient's uncle will need to be involved in discharge planning as well as the patient's outpatient mental health team. Anticipate need for a long-acting injectable clinic. Estimated LOS: 7 days 09/11/2018: Fair response to treatment; the patient cooperated with the restart of her medications and was generally cooperative over the weekend. She continues to demonstrate a disorganized thought process and paranoid behaviors to include delusions that her family has been replaced by impostors. She has tolerated treatment with Haldol 5 mg twice a day and agrees to increase further efficacy of her psychosis. Continue inpatient psychiatric treatment and stabilization. Increase Haldol to 10 mg twice a day for treatment of psychosis. Anticipate transition to a Haldol Decanoate shot prior to discharge. 09/12/2018: Good response to treatment; the patient is no longer agitated or aggressive had a full night's rest. She remains religiously preoccupied as well as delusional about her family being impostors but she denies paranoia and is willing to plan for discharge back home. Patient is tolerating her Haldol 10 mg twice a day and would be appropriate for transition to Haldol Decanoate shot prior to discharge. Continue inpatient psychiatric treatment and stabilization. Continue Haldol to 10 mg twice a day for treatment of psychosis. Anticipate transition to a Haldol Decanoate shot prior to discharge. Anticipate discharge by the end of this week. 09/13/2018: The patient regressed in her response to treatment today; she had a restless night sleep and then was more agitated and responding to internal stimuli throughout the day. Patient's Haldol had just been increased 2 days ago and may require more time for a therapeutic response. A call was placed to her uncle and sister who are acting proxy decision-maker's to see about informed consent for Haldol IM should she refuse her oral dose but a message had to be left. Patient is planned for [place] tomorrow and will need a guardian advocate for medical decision making as well as continuation of her involuntary hospital stay. 09/14/2018: Fair response to treatment; patient had improved behaviors yesterday and she seems to have tolerated the increase of the Haldol but she remains delusional and easily agitated and will require continued inpatient observation and treatment which was supported by a accounting clerks supervisor's order in the [place]. Contact was made with her sister and power of senior trial attorney, Mr. Stack, and we discussed risks benefits side effects and alternative treatments and they gave permission to continue with the increased dose of Haldol 10 mg twice a day with the opportunity to increase up to 15 mg twice a day or 3 times a day if indicated clinically. They also agreed to the use of Haldol decanoate with doses up to 100 mg every 28 days to be considered once a stable oral dose is obtained. Continue inpatient psychiatric treatment and stabilization, involuntary status court ordered. Continue Haldol 10 mg twice a day for treatment of psychosis; this dose had been increased less than 48 hours ago and will need more time to achieve therapeutic response versus therapeutic failure. Discharge plan: The patient's POA Mr. Stack is supportive of patient coming home once psychosis is stabilized and plan is to transition to monthly Haldol injections once a stable dose is established. 09/15/2018: Unsatisfactory response to treatment; the patient's dose of Haldol has been increased on this admission yet her paranoid delusions and disorganized thoughts and behaviors have not improved. The patient's family is not willing to take her back until there is more improvement and they have approved increased dosing of her Haldol. Continue inpatient psychiatric treatment and stabilization, involuntary status court ordered. Increase Haldol to 10 mg 3 times a day for treatment of psychosis. Discharge plan: The patient's POA Mr. Stack is supportive of patient coming home once psychosis is stabilized and plan is to transition to monthly Haldol injections once a stable dose is established. Justification for Continued Inpatient Stay: Patient remains an elevated risk for self-harm by self neglect and will require further inpatient stabilization and preparation of a safe discharge plan. Moving patient to a less restrictive environment at this time may result in decompensation.
[2018-09-16] MEDS: Insulin NovoLOG Aspart Correctional Sugar Inj SQ SCH ×4 (07:53→22:22)
[2018-09-16] MEDS: amLODIPine 5 MG Tablet PO SCH (08:12)
[2018-09-16] MEDS: Lisinopril 20 MG Tablet PO SCH (08:17)
--- NOTE | 2018-09-16 15:09 | P.PNPSY ---
Subjective Chief Complaint: Extremely disorganized and violent behavior Remarks: Patient was seen and case discussed with nursing. Patient is pleasant and cooperative with exam. Behaving well on the unit. He is spending her day coloring. Staff noted she is less internally preoccupied. She is compliant with medications. She denies suicidal or homicidal ideation intent or plan. Review of Systems All other systems reviewed negative except as stated in HPI Mental Status Examination Appearance: Appropriate Consciousness: Alert Orientation: Person, Place, Situation Motor Activity: Normal gait Speech: Pressured, Other (Difficult to understand what she is saying to herself) Language: Adequate Fund of Knowledge: Inadequate Attention and Concentration: Easily distracted Memory: Unremarkable Mood: Other (Unable to assess) Affect: Blunt (Appeared dysphoric) Thought Process & Associations: Loose associations, Disorganized Thought Content: Delusional (Per nursing report and patient's behavior is consistent paranoia) Hallucination Type: None Delusion Type: Bizarre, Paranoid Suicidal Ideation: No Suicidal Plan: No Suicidal Intention: No Homicidal Ideation: No Homicidal Plan: No Homicidal Intention: No Insight: Poor Judgment: Poor Assessment and Plan - Assessment (1) Paranoid type schizophrenia, chronic state Code(s): F20.0 - Paranoid schizophrenia Status: Acute - Plan Plan: Continue current treatment plan Justification for Continued Inpatient Stay: Patient would decompensate in a less restrictive setting
[2018-09-17] MEDS: amLODIPine 5 MG Tablet PO SCH (09:06)
[2018-09-17] MEDS: Lisinopril 20 MG Tablet PO SCH (09:06)
[2018-09-17] MEDS: Insulin NovoLOG Aspart Correctional Sugar Inj SQ SCH ×2 (09:16→13:01)
--- NOTE | 2018-09-17 12:48 | P.PNPSY ---
Subjective Chief Complaint: Extremely disorganized and violent behavior Remarks: Reviewed electronic record and discussed with nursing staff. Rounded with KRUPA Hernandez. Patient in common area. She is pleasant and friendly. Denies auditory or visual hallucinations. Nursing feels that she is becoming more in touch with reality compared to a few days ago. Endorses that she is sleeping and eating well. Feels she is having efficacy from the medications. Review of Systems All other systems reviewed negative except as stated in HPI Mental Status Examination Appearance: Appropriate Consciousness: Alert Orientation: Person, Place, Situation Motor Activity: Normal gait Speech: Unremarkable Language: Adequate Fund of Knowledge: Inadequate Attention and Concentration: Easily distracted Memory: Unremarkable Mood: Appropriate Affect: Appropriate Thought Process & Associations: Loose associations Thought Content: Appropriate Hallucination Type: None Delusion Type: None Suicidal Ideation: No Suicidal Plan: No Suicidal Intention: No Homicidal Ideation: No Homicidal Plan: No Homicidal Intention: No Insight: Fair Judgment: Impulsive Assessment and Plan - Assessment (1) Paranoid type schizophrenia, chronic state Code(s): F20.0 - Paranoid schizophrenia Status: Acute - Plan Plan: Continue current treatment plan Justification for Continued Inpatient Stay: Moving patient to a less restrictive environment may result in her decompensation.
[2018-09-18] MEDS: amLODIPine 5 MG Tablet PO SCH (08:33)
[2018-09-18] MEDS: Lisinopril 20 MG Tablet PO SCH (08:33)
--- NOTE | 2018-09-18 14:14 | P.PNPSY ---
Subjective Chief Complaint: Extremely disorganized and violent behavior Remarks: Patient seen for follow-up, chart reviewed, patient discussed with nursing staff ; we reviewed the patient's mood, thoughts, and behaviors from overnight and this morning. Nurse reports patient only had 4 hours of restful sleep last night. She is observed to be talking to herself but remains seclusive from milieu. She is pleasant and friendly with staff and patients over the weekend. She denied auditory or visual hallucinations. Seem to be a decrease in her response to internal stimuli and there were no aggressive behaviors over the weekend. The patient was seen during recreational therapy; she was laughing and appeared to be enjoying herself. She remains guarded with provider and after some brief discussions she requested to go back to the unit and what appeared to be her discomfort talking with the provider. The patient was asked whether or not she felt her medication adjustments had reached her goal and she replied in the negative and preferred a few more days of stabilization prior to returning home to her family. Mental Status Examination Appearance: Appropriate Consciousness: Alert Orientation: Person, Place, Situation Motor Activity: Normal gait Speech: Unremarkable Language: Adequate Fund of Knowledge: Inadequate Attention and Concentration: Easily distracted Memory: Unremarkable Mood: Appropriate Affect: Appropriate Thought Process & Associations: Disorganized (But improving) Thought Content: Appropriate Hallucination Type: None Delusion Type: None Suicidal Ideation: No Suicidal Plan: No Suicidal Intention: No Homicidal Ideation: No Homicidal Plan: No Homicidal Intention: No Insight: Fair Judgment: Impulsive Assessment and Plan - Assessment (1) Paranoid type schizophrenia, chronic state Code(s): F20.0 - Paranoid schizophrenia Status: Acute - Plan Plan: Initial assessment and plan: Patient remains an elevated risk for self-harm by self neglect due to her psychosis and disorganized thinking but she is also at risk of acting out on her paranoia and hurting others therefore she will require further inpatient stabilization and preparation of a safe discharge plan. Moving patient to a less restrictive environment at this time may result in decompensation. 1. Continue with admission to inpatient psychiatry at [facility]; involuntary/lacking capacity. The patient's uncle will act as proxy decision- maker. 2. Routine unit precautions. 3. Comfort medications ordered for as needed treatment of constipation, heartburn, diarrhea, and mild pain. 4. Hydroxyzine 50mg po q6H prn anxiety/insomnia. 5. Restart Haldol 5 mg p.o. twice a day for schizophrenia. We will consider transitioning to a long-acting injectable form if tolerated and effective. 6. Hospitalist consulted due to patient's history of diabetes as well as worsening anemia. 7. Patient will participate in the unit programming to include group therapies , milieu therapy and recreational therapies. 8. Discharge planning: Patient's uncle will need to be involved in discharge planning as well as the patient's outpatient mental health team. Anticipate need for a long-acting injectable clinic. Estimated LOS: 7 days 09/11/2018: Fair response to treatment; the patient cooperated with the restart of her medications and was generally cooperative over the weekend. She continues to demonstrate a disorganized thought process and paranoid behaviors to include delusions that her family has been replaced by impostors. She has tolerated treatment with Haldol 5 mg twice a day and agrees to increase further efficacy of her psychosis. Continue inpatient psychiatric treatment and stabilization. Increase Haldol to 10 mg twice a day for treatment of psychosis. Anticipate transition to a Haldol Decanoate shot prior to discharge. 09/12/2018: Good response to treatment; the patient is no longer agitated or aggressive had a full night's rest. She remains religiously preoccupied as well as delusional about her family being impostors but she denies paranoia and is willing to plan for discharge back home. Patient is tolerating her Haldol 10 mg twice a day and would be appropriate for transition to Haldol Decanoate shot prior to discharge. Continue inpatient psychiatric treatment and stabilization. Continue Haldol to 10 mg twice a day for treatment of psychosis. Anticipate transition to a Haldol Decanoate shot prior to discharge. Anticipate discharge by the end of this week. 09/13/2018: The patient regressed in her response to treatment today; she had a restless night sleep and then was more agitated and responding to internal stimuli throughout the day. Patient's Haldol had just been increased 2 days ago and may require more time for a therapeutic response. A call was placed to her uncle and sister who are acting proxy decision-maker's to see about informed consent for Haldol IM should she refuse her oral dose but a message had to be left. Patient is planned for [place] tomorrow and will need a guardian advocate for medical decision making as well as continuation of her involuntary hospital stay. 09/14/2018: Fair response to treatment; patient had improved behaviors yesterday and she seems to have tolerated the increase of the Haldol but she remains delusional and easily agitated and will require continued inpatient observation and treatment which was supported by a asbestos removal worker's order in the [place]. Contact was made with her sister and power of civil litigation attorney, Mr. Stack, and we discussed risks benefits side effects and alternative treatments and they gave permission to continue with the increased dose of Haldol 10 mg twice a day with the opportunity to increase up to 15 mg twice a day or 3 times a day if indicated clinically. They also agreed to the use of Haldol decanoate with doses up to 100 mg every 28 days to be considered once a stable oral dose is obtained. Continue inpatient psychiatric treatment and stabilization, involuntary status court ordered. Continue Haldol 10 mg twice a day for treatment of psychosis; this dose had been increased less than 48 hours ago and will need more time to achieve therapeutic response versus therapeutic failure. Discharge plan: The patient's POA Mr. Stack is supportive of patient coming home once psychosis is stabilized and plan is to transition to monthly Haldol injections once a stable dose is established. 09/15/2018: Unsatisfactory response to treatment; the patient's dose of Haldol has been increased on this admission yet her paranoid delusions and disorganized thoughts and behaviors have not improved. The patient's family is not willing to take her back until there is more improvement and they have approved increased dosing of her Haldol. Continue inpatient psychiatric treatment and stabilization, involuntary status court ordered. Increase Haldol to 10 mg 3 times a day for treatment of psychosis. Discharge plan: The patient's POA Mr. Stack is supportive of patient coming home once psychosis is stabilized and plan is to transition to monthly Haldol injections once a stable dose is established. Justification for Continued Inpatient Stay: Patient remains an elevated risk for self-harm by self neglect and will require further inpatient stabilization and preparation of a safe discharge plan. Moving patient to a less restrictive environment at this time may result in decompensation. 09/18/2018: Fair response to treatment; patient's affect is bright and she has not expressed any paranoid delusions with patient or staff over the weekend but remains guarded with provider continues to talk to herself. The patient is most likely approaching her baseline but her lack of confidence and discharged home was likely of evidence of her continued paranoia that her family has been replaced by impostors and therefore she will benefit from continued stabilization with current medication regimen. Continue current inpatient treatment plan and stabilization. Anticipate transition to Haldol Decanoate prior to discharge later this week. Justification for Continued Inpatient Stay: Patient remains an elevated risk for self-harm by self neglect and will require further inpatient stabilization and preparation of a safe discharge plan. Moving patient to a less restrictive environment at this time may result in decompensation.
[2018-09-19] MEDS: Lisinopril 20 MG Tablet PO SCH (08:57)
[2018-09-19] MEDS: amLODIPine 5 MG Tablet PO SCH (08:57)
--- NOTE | 2018-09-19 12:48 | P.PNPSY ---
Subjective Chief Complaint: Follow-up treatment of psychosis Remarks: Patient seen for follow-up, chart reviewed, patient discussed with nursing staff ; we reviewed the patient's mood, thoughts, and behaviors from overnight and this morning. Nurse reports that the patient had difficulty staying asleep last night and only got about 5 hours of rest. She is described as being internally preoccupied but social and cooperative within the milieu. The patient was observed throughout the day to be interacting appropriately with her peers and seemed to enjoy playing [employer]. Patient also was on the phone with her uncle who is also her power of securities attorney and seemed to be having a pleasant conversation. Patient asked the physician to talk to her uncle who reports that he feels comfortable with his niece coming home soon. The patient also reports she is feeling safe with going home to her uncle and continues to deny auditory or visual hallucinations and denies homicidal or suicidal ideations. Mental Status Examination Appearance: Appropriate Consciousness: Alert Orientation: Person, Place, Situation Motor Activity: Normal gait Speech: Unremarkable Language: Adequate Fund of Knowledge: Inadequate Attention and Concentration: Adequate Memory: Unremarkable Mood: Good Affect: Appropriate Thought Process & Associations: Intact, Logical, Goal directed Thought Content: Appropriate Hallucination Type: None Delusion Type: None Suicidal Ideation: No Suicidal Plan: No Suicidal Intention: No Homicidal Ideation: No Homicidal Plan: No Homicidal Intention: No Insight: Fair Judgment: Impulsive Assessment and Plan - Assessment (1) Paranoid type schizophrenia, chronic state Code(s): F20.0 - Paranoid schizophrenia Status: Acute - Plan Plan: Initial assessment and plan: Patient remains an elevated risk for self-harm by self neglect due to her psychosis and disorganized thinking but she is also at risk of acting out on her paranoia and hurting others therefore she will require further inpatient stabilization and preparation of a safe discharge plan. Moving patient to a less restrictive environment at this time may result in decompensation. 1. Continue with admission to inpatient psychiatry at [facility]; involuntary/lacking capacity. The patient's uncle will act as proxy decision- maker. 2. Routine unit precautions. 3. Comfort medications ordered for as needed treatment of constipation, heartburn, diarrhea, and mild pain. 4. Hydroxyzine 50mg po q6H prn anxiety/insomnia. 5. Restart Haldol 5 mg p.o. twice a day for schizophrenia. We will consider transitioning to a long-acting injectable form if tolerated and effective. 6. Hospitalist consulted due to patient's history of diabetes as well as worsening anemia. 7. Patient will participate in the unit programming to include group therapies , milieu therapy and recreational therapies. 8. Discharge planning: Patient's uncle will need to be involved in discharge planning as well as the patient's outpatient mental health team. Anticipate need for a long-acting injectable clinic. Estimated LOS: 7 days 09/11/2018: Fair response to treatment; the patient cooperated with the restart of her medications and was generally cooperative over the weekend. She continues to demonstrate a disorganized thought process and paranoid behaviors to include delusions that her family has been replaced by impostors. She has tolerated treatment with Haldol 5 mg twice a day and agrees to increase further efficacy of her psychosis. Continue inpatient psychiatric treatment and stabilization. Increase Haldol to 10 mg twice a day for treatment of psychosis. Anticipate transition to a Haldol Decanoate shot prior to discharge. 09/12/2018: Good response to treatment; the patient is no longer agitated or aggressive had a full night's rest. She remains religiously preoccupied as well as delusional about her family being impostors but she denies paranoia and is willing to plan for discharge back home. Patient is tolerating her Haldol 10 mg twice a day and would be appropriate for transition to Haldol Decanoate shot prior to discharge. Continue inpatient psychiatric treatment and stabilization. Continue Haldol to 10 mg twice a day for treatment of psychosis. Anticipate transition to a Haldol Decanoate shot prior to discharge. Anticipate discharge by the end of this week. 09/13/2018: The patient regressed in her response to treatment today; she had a restless night sleep and then was more agitated and responding to internal stimuli throughout the day. Patient's Haldol had just been increased 2 days ago and may require more time for a therapeutic response. A call was placed to her uncle and sister who are acting proxy decision-maker's to see about informed consent for Haldol IM should she refuse her oral dose but a message had to be left. Patient is planned for [place] act court tomorrow and will need a guardian advocate for medical decision making as well as continuation of her involuntary hospital stay. 09/14/2018: Fair response to treatment; patient had improved behaviors yesterday and she seems to have tolerated the increase of the Haldol but she remains delusional and easily agitated and will require continued inpatient observation and treatment which was supported by a sales warehouse driver's order in the [place] act court. Contact was made with her sister and power of securities attorney, Mr. Stack, and we discussed risks benefits side effects and alternative treatments and they gave permission to continue with the increased dose of Haldol 10 mg twice a day with the opportunity to increase up to 15 mg twice a day or 3 times a day if indicated clinically. They also agreed to the use of Haldol decanoate with doses up to 100 mg every 28 days to be considered once a stable oral dose is obtained. Continue inpatient psychiatric treatment and stabilization, involuntary status court ordered. Continue Haldol 10 mg twice a day for treatment of psychosis; this dose had been increased less than 48 hours ago and will need more time to achieve therapeutic response versus therapeutic failure. Discharge plan: The patient's POA Mr. Stack is supportive of patient coming home once psychosis is stabilized and plan is to transition to monthly Haldol injections once a stable dose is established. 09/15/2018: Unsatisfactory response to treatment; the patient's dose of Haldol has been increased on this admission yet her paranoid delusions and disorganized thoughts and behaviors have not improved. The patient's family is not willing to take her back until there is more improvement and they have approved increased dosing of her Haldol. Continue inpatient psychiatric treatment and stabilization, involuntary status court ordered. Increase Haldol to 10 mg 3 times a day for treatment of psychosis. Discharge plan: The patient's POA Mr. Stack is supportive of patient coming home once psychosis is stabilized and plan is to transition to monthly Haldol injections once a stable dose is established. Justification for Continued Inpatient Stay: Patient remains an elevated risk for self-harm by self neglect and will require further inpatient stabilization and preparation of a safe discharge plan. Moving patient to a less restrictive environment at this time may result in decompensation. 09/18/2018: Fair response to treatment; patient's affect is bright and she has not expressed any paranoid delusions with patient or staff over the weekend but remains guarded with provider continues to talk to herself. The patient is most likely approaching her baseline but her lack of confidence and discharged home was likely of evidence of her continued paranoia that her family has been replaced by impostors and therefore she will benefit from continued stabilization with current medication regimen. Continue current inpatient treatment plan and stabilization. Anticipate transition to Haldol Decanoate prior to discharge later this week. 09/19/2018: Good response to treatment; the patient has not been agitated or combative in over 4 days and she is no longer guarded or expressing paranoia towards the provider. Yesterday she had said she was not feeling safe with the discharge home but today seems reassured by her conversation with her uncle and reports that she is ready to go home. The patient's family who are her substitute decision makers had wanted the patient to get on a long-acting injectable due to difficulty overall with the family supporting her adherence to daily medications therefore the patient will once again be approached for treatment with Haldol decanoate with a plan to discharge home tomorrow if treatment well-tolerated. Justification for Continued Inpatient Stay: Patient remains an elevated risk for self-harm by self neglect and will require further inpatient stabilization and preparation of a safe discharge plan. Moving patient to a less restrictive environment at this time may result in decompensation.
[2018-09-20 06:06] VITALS: BP 113/74; PULSE 88; RESP 17; TEMP 98; O2SAT 100
[2018-09-20] MEDS ORDERED: Haloperidol Decanoate Inj 50 MG/ML Ampul IM ONE ×2 (09:56→12:16)
[2018-09-20] MEDS ORDERED: Haloperidol 5 MG Tablet PO SCH (10:00)
[2018-09-20] MEDS: amLODIPine 5 MG Tablet PO SCH (10:21)
[2018-09-20] MEDS: Lisinopril 20 MG Tablet PO SCH (10:21)
[2018-09-20] MEDS ORDERED: Haloperidol Decanoate Inj 50 MG/ML Ampul IM SCH (12:30)
--- NOTE | 2018-09-20 15:08 | P.DSPSY ---
Psychiatry Discharge Summary Inpatient Psychiatric care?: Yes Advance Directives: No Mental Health Advance Directive: No Health Care Proxy: Yes - Admission Admission Date: September 07, 2018 10:33 - Admission Diagnosis (1) Paranoid type schizophrenia, chronic state Code(s): F20.0 - Paranoid schizophrenia Brief History: This is a 57-year-old , -[place] female who presents under a police initiated [place] act to this facility for reported bizarre behavior. Patient is well-known to this facility and to the psychiatric department with her last inpatient admission on 08/11/18 through 08/16/18. Reviewed electronic medical record, labs, discussed case with staff. The patient was assessed in J[facility]. She was found sleeping in no apparent distress. She woke to verbal stimuli. She is alert and oriented to self and place at least. Her speech is clear, logical, organized, of normal canes and volume at this time. Staff reports that this morning when they initially arrived she was extremely disorganized, loud, and bizarre. The patient is currently denying suicidal ideation, homicidal ideation expressing auditory or visual hallucinations. However, she does report that she needs to "have my pills regulated". She has an extensive history with this facility of being stabilized for her diagnosis of schizophrenia and upon discharge becoming noncompliant with her medications. I spoke with her uncle and twin sister who expressed concern over what they feel is the "revolving door nature" of her treatment. I have explained to them that we do not have legal capacity to compel her to take medications when she is discharged. They would like for this facility to see if we can get a court mandated long-acting injectable. They plan on contacting the attending psychiatrist to see what can be arranged. The patient was observed in her room in the hallway responding to internal stimuli, talking to no one, and laughing apropos of nothing. The patient was observed on the unit today by the attending psychiatrist. The patient was asleep through breakfast and difficult to arouse throughout the day. She did get up and have lunch but then immediately fell back asleep. Patient was brought out into the day room and had her sit in the chair in an attempt to get her awake and talkative. The patient remains severely somnolent and although she would wake to answer questions briefly she would fall right back to sleep. The patient has been given an emergency treatment order this morning with Stacey 5 mg IM and Ativan 2 mg IM and then started on her scheduled dose of Haldol 5 mg orally twice a day. During the brief interactions the patient was able to stay awake for today, the patient acknowledged the need to be hospitalized in order to get her medications stabilized. She verbalized that she is willing to take her medications as prescribed. Tobacco Use In Past 30 Days: No How Often Do You Have a Drink Containing Alcohol: Monthly or less Hospital Course: Initial assessment and plan: Patient remains an elevated risk for self-harm by self neglect due to her psychosis and disorganized thinking but she is also at risk of acting out on her paranoia and hurting others therefore she will require further inpatient stabilization and preparation of a safe discharge plan. Moving patient to a less restrictive environment at this time may result in decompensation. 1. Continue with admission to inpatient psychiatry at [facility]; involuntary/lacking capacity. The patient's uncle will act as proxy decision- maker. 2. Routine unit precautions. 3. Comfort medications ordered for as needed treatment of constipation, heartburn, diarrhea, and mild pain. 4. Hydroxyzine 50mg po q6H prn anxiety/insomnia. 5. Restart Haldol 5 mg p.o. twice a day for schizophrenia. We will consider transitioning to a long-acting injectable form if tolerated and effective. 6. Hospitalist consulted due to patient's history of diabetes as well as worsening anemia. 7. Patient will participate in the unit programming to include group therapies , milieu therapy and recreational therapies. 8. Discharge planning: Patient's uncle will need to be involved in discharge planning as well as the patient's outpatient mental health team. Anticipate need for a long-acting injectable clinic. Estimated LOS: 7 days 09/11/2018: Fair response to treatment; the patient cooperated with the restart of her medications and was generally cooperative over the weekend. She continues to demonstrate a disorganized thought process and paranoid behaviors to include delusions that her family has been replaced by impostors. She has tolerated treatment with Haldol 5 mg twice a day and agrees to increase further efficacy of her psychosis. Continue inpatient psychiatric treatment and stabilization. Increase Haldol to 10 mg twice a day for treatment of psychosis. Anticipate transition to a Haldol Decanoate shot prior to discharge. 09/12/2018: Good response to treatment; the patient is no longer agitated or aggressive had a full night's rest. She remains religiously preoccupied as well as delusional about her family being impostors but she denies paranoia and is willing to plan for discharge back home. Patient is tolerating her Haldol 10 mg twice a day and would be appropriate for transition to Haldol Decanoate shot prior to discharge. Continue inpatient psychiatric treatment and stabilization. Continue Haldol to 10 mg twice a day for treatment of psychosis. Anticipate transition to a Haldol Decanoate shot prior to discharge. Anticipate discharge by the end of this week. 09/13/2018: The patient regressed in her response to treatment today; she had a restless night sleep and then was more agitated and responding to internal stimuli throughout the day. Patient's Haldol had just been increased 2 days ago and may require more time for a therapeutic response. A call was placed to her uncle and sister who are acting proxy decision-maker's to see about informed consent for Haldol IM should she refuse her oral dose but a message had to be left. Patient is planned for [place] court tomorrow and will need a guardian advocate for medical decision making as well as continuation of her involuntary hospital stay. 09/14/2018: Fair response to treatment; patient had improved behaviors yesterday and she seems to have tolerated the increase of the Haldol but she remains delusional and easily agitated and will require continued inpatient observation and treatment which was supported by a hiv/aids care nurse's order in the [place] court. Contact was made with her sister and power of divorce attorney, Mr. Stack, and we discussed risks benefits side effects and alternative treatments and they gave permission to continue with the increased dose of Haldol 10 mg twice a day with the opportunity to increase up to 15 mg twice a day or 3 times a day if indicated clinically. They also agreed to the use of Haldol decanoate with doses up to 100 mg every 28 days to be considered once a stable oral dose is obtained. Continue inpatient psychiatric treatment and stabilization, involuntary status court ordered. Continue Haldol 10 mg twice a day for treatment of psychosis; this dose had been increased less than 48 hours ago and will need more time to achieve therapeutic response versus therapeutic failure. Discharge plan: The patient's POA Mr. Stack is supportive of patient coming home once psychosis is stabilized and plan is to transition to monthly Haldol injections once a stable dose is established. 09/15/2018: Unsatisfactory response to treatment; the patient's dose of Haldol has been increased on this admission yet her paranoid delusions and disorganized thoughts and behaviors have not improved. The patient's family is not willing to take her back until there is more improvement and they have approved increased dosing of her Haldol. Continue inpatient psychiatric treatment and stabilization, involuntary status court ordered. Increase Haldol to 10 mg 3 times a day for treatment of psychosis. Discharge plan: The patient's POA Mr. Stack is supportive of patient coming home once psychosis is stabilized and plan is to transition to monthly Haldol injections once a stable dose is established. Justification for Continued Inpatient Stay: Patient remains an elevated risk for self-harm by self neglect and will require further inpatient stabilization and preparation of a safe discharge plan. Moving patient to a less restrictive environment at this time may result in decompensation. 09/18/2018: Fair response to treatment; patient's affect is bright and she has not expressed any paranoid delusions with patient or staff over the weekend but remains guarded with provider continues to talk to herself. The patient is most likely approaching her baseline but her lack of confidence and discharged home was likely of evidence of her continued paranoia that her family has been replaced by impostors and therefore she will benefit from continued stabilization with current medication regimen. Continue current inpatient treatment plan and stabilization. Anticipate transition to Haldol Decanoate prior to discharge later this week. 09/19/2018: Good response to treatment; the patient has not been agitated or combative in over 4 days and she is no longer guarded or expressing paranoia towards the provider. Yesterday she had said she was not feeling safe with the discharge home but today seems reassured by her conversation with her uncle and reports that she is ready to go home. The patient's family who are her substitute decision makers had wanted the patient to get on a long-acting injectable due to difficulty overall with the family supporting her adherence to daily medications therefore the patient will once again be approached for treatment with Haldol decanoate with a plan to discharge home tomorrow if treatment well-tolerated. Justification for Continued Inpatient Stay: Patient remains an elevated risk for self-harm by self neglect and will require further inpatient stabilization and preparation of a safe discharge plan. Moving patient to a less restrictive environment at this time may result in decompensation. 09/20/2018: Patient was seen and examined on the unit by psychiatry and also visited by counselor. Psychotropic medications remained well tolerated. The patient was notified about plan for transition to a Haldol Decanoate injection and she expressed agreement with said plan and was cooperative with the injection today. There was a good response to inpatient treatment plan noted by nursing and provider observations, and the patient reported improvements in mood, anxiety, and there was no evidence of any hallucinations, suicidality or homicidality at time of discharge. Psychiatric follow-up as arranged by counselor. Patient is also to follow up with primary care. I have counseled the patient to abstain from substances of abuse including cannabis and have counseled patient to return to the psychiatric emergency room for any concerning symptoms as part of a general safety plan. Discharge medications include Haldol 5 mg 1 tablet by mouth twice a day #60 refill 0, Haldol decanoate 100 mg IM every 28 days next injection is due October 18, 2018, Atarax 50 mg take 1 tablet by mouth every 8 hours as needed for anxiety or insomnia #60 refill 0. - Discharge Discharge Date: 09/20/18 Discharge Disposition: Home - Discharge Time > 30 minutes Mental Status Examination Appearance: Appropriate Consciousness: Alert Orientation: Person, Place, Situation Motor Activity: Normal gait Speech: Unremarkable Language: Adequate Fund of Knowledge: Inadequate Attention and Concentration: Adequate Memory: Unremarkable Mood: Good Affect: Appropriate Thought Process & Associations: Intact, Logical, Goal directed Thought Content: Appropriate Hallucination Type: None Delusion Type: None, Bizarre (The patient still has doubts whether her uncle and sister are truly her uncle and sister) Suicidal Ideation: No Suicidal Plan: No Suicidal Intention: No Homicidal Ideation: No Homicidal Plan: No Homicidal Intention: No Insight: Fair Judgment: Impulsive Discharge/Advance Care Plan - Results Vital Signs: Last Vital Signs Temp 98 F 09/20/18 06:00 Pulse 88 09/20/18 06:00 Resp 17 09/20/18 06:00 BP 113/74 09/20/18 06:00 Pulse Ox 100 09/20/18 06:00 Lab Results: Laboratory Results Hemoglobin A1c 7.5 % (4.3-6.0) H 09/10/18 08:25 Triglycerides 115 mg/dL (42-150) 09/10/18 08:25 Cholesterol 190 mg/dL (120-200) 09/10/18 08:25 LDL Cholesterol, Calc 112 mg/dL (0-99) H 09/10/18 08:25 HDL Cholesterol 55.3 mg/dL (40.0-60.0) 09/10/18 08:25 TSH 2.200 uIU/mL (0.358-3.740) 09/07/18 04:40 Urine Culture Comments Culture not ind 09/07/18 04:40 Summary of Procedures: None to report Pending Results: None - Medications Number of antipsychotic medications at discharge: 1 - Discharge Care Plan Goals to Promote Your Health: * To prevent worsening of your condition and complications * To maintain your health at the optimal level Directions to Meet Your Goals: Take your medications as prescribed Follow your dietary instruction Follow activity as directed Keep your appointments as scheduled Take your immunizations and boosters as scheduled If your symptoms worsen call your PCP, if no PCP go to Urgent Care Center or Emergency Room For 28/03 questions related to your inpatient stay or results of tests pending at discharge, please contact Dr. Saturnino Wade MD at Smoking is Dangerous to Your Health. Avoid second hand smoking
== END 2018-09-20 16:25 | disposition home or self-care (01) | DRG 885 ==
LOC: NEPJ 04:17 → NEDA 10:33 → H270 12:35 → H260 09-17 09:34
PROVIDERS: ADMIT Psychiatry & Neurology Psychiatry; ATTEND Psychiatry & Neurology Psychiatry
CPT/HCPCS: 80048; 80053; 80061; 80307; 81001; 82948; 82962; 83036; 83735; 84443; 85025; 90791; 99285; J1630; J1631; J1815; J2060; Q0163